=== PATIENT | female | born 1960 | race Caucasian/White ===

== ENCOUNTER 2022-01-05 09:17 | Outpatient (REF) | payer OTHER, SELFPAY ==
[2022-01-05 10:48] LABS: MANUAL DIFF FLAG NO
[2022-01-05 10:52] LABS: Basophils Absolute Auto 0.1 X10*3/uL (0.0-0.2); Basophils Percent Auto 1.2 % (0-2); Eosinophils Absolute Auto 0.2 X10*3/uL (0.0-0.4); Eosinophils Percent Auto 2.1 % (0-4); Hematocrit 38.3 % (37.0-47.0); Hemoglobin 12.5 g/dl (12.0-16.0); Imm Gran Abs Auto 0.03 X10*3/uL (0.00-0.03); Imm Gran Pct Auto 0.4 % (0.0-0.4); Lymphocytes Absolute Auto 1.8 X10*3/uL (1.2-4.9); Lymphocytes Percent Auto 22.6 % (20-40); Mean Corpuscular HGB Conc 32.6 g/dl (31.0-35.0); Mean Corpuscular Hemoglobin 32.6 pg (27.0-33.0); Mean Platelet Volume 8.8 fL (9.4-12.3); Monocytes Absolute Auto 0.9 X10*3/uL (0.1-1.2); Monocytes Percent Auto 10.6 % (2-11); Neutrophils Absolute Auto 5.1 x10*3/uL (2.0-8.3); Neutrophils Percent Auto 63.1 % (45-73); Platelet Count 347 X10*3/uL (160-400); Red Blood Count 3.83 X10*6/uL (4.20-5.50)
[2022-01-05 11:21] LABS: C Reactive Protein 0.03 mg/dL (< or = 0.50)
[2022-01-05 12:07] LABS: Erythrocyte Sedimentation Rate 16 MM/HR (0-20)
[2022-01-07 22:36] LABS: TS Negative Control Passed; TS Panel A 0; TS Panel B 0; TS Positive Control Passed; TSpotTB Negative (Negative)
== END 2022-01-05 09:18 | disposition home or self-care (01) ==
LOC: HO.10HDL 09:17
PROVIDERS: Visit Provider Internal Medicine Rheumatology
DX: M05.9 Rheumatoid arthritis with rheumatoid factor, unspecified (principal); R76.11 Nonspecific reaction to tuberculin skin test without active tuberculosis; Z79.899 Other long term (current) drug therapy
CPT/HCPCS: 36415; 85025; 85652; 86140; 86481

== ENCOUNTER 2023-07-23 12:24 | Outpatient (AMB) | payer OTHER, SELFPAY ==
--- NOTE | 2023-07-23 12:33 | MHC.OFFVIS ---
Intake Vital Signs 07/23/23 12:34 Height 5 ft Weight 114 lb 10.246 oz BMI 22.4 BP 112/70 Blood Pressure Location Rt brachial Position Sitting Pulse 68 Pulse Source Pulse Oximeter Pulse Oximetry (%) 92 Oxygen Delivery Method Room Air Intake Visit Reasons: RA Intake Note: Last seen December [address] Phillips, presents today for follow up. States ins wants to change her Humira to something else and she can't go without it. Reports she had tried to switch to something else in the past and went through hell Getting Humira from [facility] specialty pharmacy. 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 Accompanied by: Self / Same As Patient Allergies acetaminophen [Percocet] Allergy (Unknown, Verified 07/23/23 12:36) Vomiting codeine [CODEINE] Allergy (Unknown, Unverified 07/23/23 12:36) VOMITING oxycodone [Percocet] Allergy (Unknown, Verified 07/23/23 12:36) Vomiting Medication List - Last Reconciled 07/23/23 by Demi Jimenez MD adalimumab (Humira(CF) Pen) 40 mg (0.4 mL) subcut Q2W aspirin (Adult Low Dose Aspirin) 81 mg PO DAILY atorvastatin 80 mg PO DAILY diclofenac sodium 1% (Arthritis Pain (diclofenac)) 2 grams topical QID lisinopril 10 mg PO DAILY metoprolol succinate ER 50 mg PO DAILY HPI HPI Comments History of Present Illness Details 63-year-old female with seropositive RA returns for follow-up. She was last seen by Dr. Phillips 12/2021. This is her 1st visit with me. Patient states that she has difficulty making follow-up appointments due to her tough schedule working in [place] [facility]. She remains on Humira every other week and is frustrated that her insurance will no longer cover Humira. She states that she is doing quite well overall with her joint pain. Recently she had an infection of her left middle finger. She states that her hands are very dry and has to wear gloves while at work, she gets very itchy and dry. Her skin on the dorsal aspect of her left middle finger split. She has been using antibiotic cream. She has not had any systemic infections. Has been doing quite well overall Most recent history by Dr. Phillips 12/2021: Patient presents for evaluation of her rheumatoid arthritis. I had last seen her about a year ago at [place]. She was doing well on Humira 40 mg every 2 weeks. She had minimal discomfort. She did run out of the Humira prescription in October. Since then she has had 3 episodes of pain and swelling in the right wrist. She does take occasional [id number] naproxen with some benefit. Apparently the Humira has been recently renewed and approved; she should be getting it next week. She reports no side effects with its use. She does have history of having COVID she believes around the of the year but that was a self-limited infection. [facility] Surgical History S/P drug eluting coronary stent placement Family History Maternal Aunt Breast cancer, Onset Age: 76 Maternal Grandmother Breast cancer, Onset Age: 55 Mother Coronary artery disease Arthritis Father Coronary artery disease Salivary gland cancer Sister Hypertension Maternal Aunt Lung cancer Maternal Grandmother Cancer Other Uterine cancer Social History Household Members Other:: lives alone [facility] Are you a primary cardiac care unit nurse to a significant other at home: No Do you presently have visiting nurse or other home services: No 75 years or older and lives alone: No Alcohol intake: current Alcohol intake frequency: holidays/special occasions only Alcohol type: wine Patient Tobacco Use Status: Former Tobacco user Quit Date: 10/16/2020 e-Cigarette/Vaping Use: Never Used service: No Current occupational status: employed Review of Systems Musc Denies arthralgias, Denies joint swelling and Denies stiffness Skin/Breast Reports dry skin and Reports wounds Physical Exam Vital Signs: Last Vital Signs Pulse 68 07/23/23 12:34 BP 112/70 07/23/23 12:34 Pulse Ox 92 07/23/23 12:34 Oxygen Delivery Method Room Air 07/23/23 12:34 BMI result Body Mass Index 22.4 Const General: cooperative, healthy appearing and comfortable Nutritional Appearance: average body habitus Orientation/consciousness: patient oriented x3 Limitations: no limitations HEENT Head: Yes normocephalic and Yes atraumatic Mouth: moist mucous membranes Resp Effort & Inspection: normal respiratory effort and able to speak in complete sentences Auscultation: clear to auscultation bilaterally Cardio Rate: regular rate Rhythm: regular rhythm Skin Other: Dry skin on extensor answered of both hands Neuro General: patient oriented x3 Extrem Other: No active synovitis Assessment & Plan Assessment & Plan (1) Seropositive rheumatoid arthritis: Comment: ++RF+++CCP Onset ~2013 - palindromic pattern 10/08-12/08 - sulfasalazine tried - GI intolerance Jun 2018: methotrexate started. Stopped due to ineffectiveness, 2019 Humira started 10/2020 - good response - ran out in October 2021 - flared 12/2021 Humira restarted effective Code(s): M05.9 - Rheumatoid arthritis with rheumatoid factor, unspecified Plan: This is a 63-year-old female with seropositive RA who returns for follow-up. Doing quite well overall on Humira 40 mg every other week. Patient's insurance will no longer cover Humira, it will cover a bio similar. Patient quite frustrated. Discussed bio similars and reassured patient. Will prescribe a bio similar. Check labs today to evaluate disease activity (2) Long-term use of immunosuppressant medication: Code(s): Z79.899 - Other long-term (current) drug therapy Plan: Discussed the need for safety labs including T spot test to evaluate for latent TB especially that patient works in [place] [facility] Plan I spent 30 minutes reviewing patient's chart, evaluating patient, ordering diagnostic workup, counseling patient and documenting in the chart Orders: Orders Erythrocyte Sedimentation Rate Today M05.9 - Rheumatoid arthritis with rheumatoid factor, unspecified Hepatitis A,B,C Profile Today Z11.59 - Encounter for screening for other viral diseases T Spot TB Today Z11.7 - Encounter for testing for latent tuberculosis infection Complete Blood Count Auto Diff Today M05.9 - Rheumatoid arthritis with rheumatoid factor, unspecified Comprehensive Met. Panel Today M05.9 - Rheumatoid arthritis with rheumatoid factor, unspecified C Reactive Protein Today M05.9 - Rheumatoid arthritis with rheumatoid factor, unspecified Coding Level of Care Code Est Pt Level 4 (66254) Diagnoses Seropositive rheumatoid arthritis M05.9 Long-term use of immunosuppressant medication Z79.899
[2023-07-23 12:34] VITALS: BP 112/70; PULSE 68; O2SAT 92; BMI 22.4
== END 2023-07-23 13:09 | disposition home or self-care (01) ==
PROVIDERS: PCP Internal Medicine; Visit Provider Student in an Organized Health Care Education/Training Program
DX: M05.79 Rheumatoid arthritis with rheumatoid factor of multiple sites without organ or systems involvement (principal); Z79.899 Other long term (current) drug therapy
CPT/HCPCS: 99214

== ENCOUNTER → 2023-07-23 12:24 | Outpatient (BNVA) | payer OTHER, SELFPAY | PROVIDERS: PCP Internal Medicine; Visit Provider Student in an Organized Health Care Education/Training Program ==

== ENCOUNTER 2023-11-10 09:40 | Outpatient (REF) | payer OTHER, SELFPAY ==
[2023-11-10 11:37] LABS: MANUAL DIFF FLAG NO
[2023-11-10 11:43] LABS: Basophils Absolute Auto 0.1 X10*3/uL (0.0-0.2); Basophils Percent Auto 1.5 % (0-2); Eosinophils Absolute Auto 0.3 X10*3/uL (0.0-0.4); Eosinophils Percent Auto 4.2 % (0-4); Hematocrit 36.1 % (37.0-47.0); Imm Gran Abs Auto 0.02 X10*3/uL (0.00-0.03); Imm Gran Pct Auto 0.3 % (0.0-0.4); Lymphocytes Absolute Auto 2.5 X10*3/uL (1.2-4.9); Lymphocytes Percent Auto 34.8 % (20-40); Mean Corpuscular HGB Conc 33.2 g/dl (31.0-35.0); Mean Corpuscular Hemoglobin 33.8 pg (27.0-33.0); Mean Corpuscular Volume 101.7 fL (80.0-98.0); Mean Platelet Volume 8.9 fL (9.4-12.3); Monocytes Percent Auto 13.8 % (2-11); Neutrophils Absolute Auto 3.3 x10*3/uL (2.0-8.3); Neutrophils Percent Auto 45.4 % (45-73); Platelet Count 316 X10*3/uL (160-400); Red Blood Count 3.55 X10*6/uL (4.20-5.50); Red Cell Distribution Width 14.8 % (11.0-16.0); White Blood Count 7.2 X10*3/uL (4.8-10.8)
[2023-11-10 12:14] LABS: Alanine Aminotransferase 18 U/L (0-31); Alkaline Phosphatase 107 U/L (39-117); Anion Gap 10 (12-20); Aspartate Amino Transferase 22 U/L (5-31); Bilirubin Total 0.5 mg/dL (0.0-1.0); Blood Urea Nitrogen 26 mg/dL (9-16); C Reactive Protein < 0.04 mg/dL (< or = 0.50); Calcium 9.1 mg/dL (8.4-10.2); Carbon Dioxide 25 mmol/L (22-29); Chloride 109 mmol/L (96-108); Estimated Glomerular Filt Rate 54; Glucose Random 86 mg/dL (60-115); Potassium 4.5 mmol/L (3.3-5.1); Sodium 139 mmol/L (135-145); Total Protein 7.3 g/dL (6.5-8.0)
[2023-11-10 12:22] LABS: HBS Num1 29.45 mIU/mL (0-7.99); HBsAGNum1 0.23 S/CO (0.00-0.99); Hepatitis A Antibody IgM 0.19 Index (0-0.79); Hepatitis B Core Antibody Nonreactive (Nonreactive); Hepatitis B Surface Antigen Negative (Negative); ~Hepatitis A Antibody IgM Nonreactive (Nonreactive); ~Hepatitis B Surface Antibody REACTIVE (Nonreactive); ~Hepatitis C Antibody Nonreactive (Nonreactive)
[2023-11-10 12:23] LABS: Erythrocyte Sedimentation Rate 11 MM/HR (0-20)
[2023-11-15 21:53] LABS: TS Negative Control Passed; TS Panel A 0; TS Panel B 0; TS Positive Control Passed; TSpotTB Negative (Negative)
== END 2023-11-10 09:41 | disposition home or self-care (01) ==
LOC: HO.10HDL 09:40
PROVIDERS: Visit Provider Student in an Organized Health Care Education/Training Program
DX: M05.9 Rheumatoid arthritis with rheumatoid factor, unspecified (principal); Z11.7 Encounter for testing for latent tuberculosis infection; Z11.59 Encounter for screening for other viral diseases
CPT/HCPCS: 36415; 80053; 85025; 85652; 86140; 86481; 86704; 86706; 86709; 86803; 87340

== ENCOUNTER 2024-01-18 05:52 | Emergency (ER) | payer OTHER, SELFPAY ==
--- NOTE | ~2024-01-18 | XR_ITS ---
Examination: X-rays ankle and foot INDICATION: Pain. COMPARISON: None. TECHNIQUE: 3 views of the left foot and 2 views of the left ankle FINDINGS: No fracture or dislocation. The ankle mortise is intact. There is no joint effusion at the ankle. There is normal alignment without evidence of erosive change. The soft tissues are unremarkable. There is a tiny plantar calcaneal spur. XR/XR foot LT 2V IMPRESSION: 1. No fracture or dislocation. 2. Tiny plantar calcaneal spur. Electronically signed by: Gil Shore MD 01/18/2024 06:37 AM EDT
--- NOTE | ~2024-01-18 | XR_ITS ---
Examination: X-rays ankle and foot INDICATION: Pain. COMPARISON: None. TECHNIQUE: 3 views of the left foot and 2 views of the left ankle FINDINGS: No fracture or dislocation. The ankle mortise is intact. There is no joint effusion at the ankle. There is normal alignment without evidence of erosive change. The soft tissues are unremarkable. There is a tiny plantar calcaneal spur. XR/XR ankle LT 2V IMPRESSION: 1. No fracture or dislocation. 2. Tiny plantar calcaneal spur. Electronically signed by: Gil Shore MD 01/18/2024 06:37 AM EDT
[2024-01-18 06:07] VITALS: BP 148/63; PULSE 66; RESP 18; TEMP 36.9; BMI 20.9
--- NOTE | 2024-01-18 06:10 | PC.NURSE ---
pt hands cold unable to obtain o2 sat no sob noted.
--- NOTE | 2024-01-18 07:02 | ED.EXTPRO ---
HPI - Extremity Problem General Chief complaint: Extremity Problem Stated complaint: ankle pain Time Seen by Provider: 01/18/24 07:01 Source: patient Mode of arrival: ambulatory Limitations: no limitations History of Present Illness ED Provider: Dr. Dennis Poe HPI Narrative: 63-year-old female history of osteoarthritis, rheumatoid arthritis treated withHyrimoz, NSTEMI, TMJ who presents emergency department for evaluation of left ankle and left foot pain which came on suddenly last night and got progressively worse. She states that her foot and ankle are warm, red and swollen. She states the pain is severe in his 03/02 and worse with ambulation. She denied fever, chills, nausea or vomiting. She denies recent injury to her left lower extremity. Related Data Home Medications ?Medication ?Instructions ?Recorded ?Confirmed atorvastatin 80 mg tablet 80 mg PO DAILY 01/15/21 01/05/22 lisinopril 10 mg tablet 10 mg PO DAILY 01/15/21 01/05/22 metoprolol succinate 50 mg 50 mg PO DAILY 01/15/21 01/05/22 tablet,extended release 24 hr aspirin 81 mg tablet,delayed 81 mg PO DAILY 01/05/22 01/05/22 release (Adult Low Dose Aspirin) diclofenac sodium 1 % topical gel 2 g topical QID 05/28/22 05/28/22 (Arthritis Pain (diclofenac)) Previous Rx's ?Medication ?Instructions ?Recorded Hyrimoz(CF) Pen 40 mg/0.4 mL 40 mg (0.4 mL) subcut Q2W #0.8 mL 11/16/23 subcutaneous pen injector (adalimumab-adaz) cephalexin 500 mg capsule 500 mg PO QID 5 days #20 caps 01/18/24 colchicine 0.6 mg tablet (Colcrys) 0.6 mg PO ONCE #3 tabs 01/18/24 morphine 15 mg immediate release 15 mg PO Q6H PRN pain #10 tabs 01/18/24 tablet Allergies Allergy/AdvReac Type Severity Reaction Status Date / Time acetaminophen [Percocet] Allergy Unknown Vomiting Verified 01/18/24 06:08 codeine [CODEINE] Allergy Unknown VOMITING Unverified 01/18/24 06:08 oxycodone [Percocet] Allergy Unknown Vomiting Verified 01/18/24 06:08 Review of Systems Review of Systems: Yes all other systems are reviewed and are negative PMFSH Past Medical History [facility] Narrative: Social history: She does smoke cigarettes. She states she does drink alcohol and she last drank 3 glasses of wine 4 days prior. She denies drug use. Surgical History S/P drug eluting coronary stent placement Family History Family History Maternal Aunt Breast cancer, Onset Age: 76 Maternal Grandmother Breast cancer, Onset Age: 55 Mother Coronary artery disease Arthritis Father Coronary artery disease Salivary gland cancer Sister Hypertension Maternal Aunt Lung cancer Maternal Grandmother Cancer Other Uterine cancer Social History Social History Household Members Other:: lives alone [facility] Are you a primary critical care cns to a significant other at home: No Do you presently have visiting nurse or other home services: No Alcohol intake: current Alcohol intake frequency: holidays/special occasions only Alcohol type: wine Patient Tobacco Use Status: Former Tobacco user e-Cigarette/Vaping Use: Never Used Advance Directives: Yes Advance Directives Information Provided: Yes Advance Directives on File: No Do you have a plan to hurt others: No Plan service: No Current occupational status: employed Physical Exam Vital Signs: Vital Signs: Last Vital Signs Temp 97.5 F 01/18/24 07:53 Pulse 66 01/18/24 07:53 Resp 14 01/18/24 07:53 BP 141/44 H 01/18/24 07:53 Pulse Ox 100 01/18/24 07:53 O2 Del Method Room Air 01/18/24 07:53 BMI result Body Mass Index 20.9 Vital signs revealed an elevated blood pressure of 141/44 otherwise unremarkable Exam: General: Awake, alert in no distress Extremities: Patient has left lower extremity revealed increased warmth with erythema over the MTP joints with severe tenderness palpation over the 1st MTP joint. The erythema does extend proximally along the 1st through 3rd metatarsals, patient also has tenderness palpation ankle with no significant joint effusion. The patient has pain with minimal movement of her empty brain joints and ankle. Psych: Pleasant, cooperative Medications Administered Discontinued Medications Generic Name Dose Route Start Last Admin Trade Name Freq PRN Reason Stop Dose Admin Acetaminophen 975 mg 01/18/24 07:27 08/27/24 07:36 Acetaminophen 325 Mg Tablet PO 01/18/24 07:28 975 mg ONCE STA Administration Cephalexin HCl 500 mg 01/18/24 07:28 01/18/24 07:37 Cephalexin 500 Mg Capsule PO 01/18/24 07:29 500 mg ONCE ONE Administration Prednisone 40 mg 01/18/24 07:27 01/18/24 07:36 Prednisone 20 Mg Tablet PO 01/18/24 07:28 40 mg ONCE ONE Administration Medical Decision Making Medical Decision Making [facility] Narrative: 63-year-old female history of osteoarthritis, rheumatoid arthritis treated with Hyrimoz, NSTEMI, TMJ who presents emergency department for evaluation of left ankle and left foot pain which came on suddenly last night and got progressively worse, pain is 10/10 and is worse with movement. This is her 1st episode of this type of pain. She denies any injury. Vital signs revealed an elevated blood pressure. Physical examination revealed erythema in severe tenderness palpation over the MTP joints specifically over the 1st joint as well as erythema that extends along the 1st through 3rd metatarsals. Patient also has tenderness palpation in movement of her left ankle with no obvious joint effusion. Differential diagnosis: ?Includes but is not limited to cellulitis, inflammatory arthritis, septic arthritis, gout/podagra Following evaluation was ordered: X-rays of the left ankle and left foot Patient was initially treated with the following: Prednisone 40 mg orally, cephalexin 500 mg orally and acetaminophen 975 mg orally Course: The patient's x-rays revealed no acute fractures or other significant abnormalities. Patient's physical findings and presentation is consistent with gout involving the MTP joints foot and ankle. This is the patient's 1st episode of gout. The patient was prescribed Colcrys 0.6 mg tablets, 2 pills orally followed by 1 pill 1 hour later to repeat in 3 days. She was also prescribed prednisone 40 mg once a day for 5 days. I think that is cellulitis is less likely however given her rheumatoid arthritis and her treatment with a biologic agent I will treat her empirically for possible cellulitis with cephalexin 500 mg 4 times a day for 7 days. She was advised to take the Colcrys, prednisone and Tylenol and for pain not relieved by these medications she was prescribed morphine 15 mg every 6 hours as needed for pain. She was given printed and verbal instructions and discharged home. I did tell her that she will need to follow-up with her PCP and when her symptoms have resolved in 2-4 weeks she should have an outpatient laboratory evaluation to include at least uric acid and calcium. Admission/Observation Consideration of admission/observation: Escalation of care including admission/observation considered Independent Interpretation I performed an independent interpretation of an: Plain X-Ray Interpretation: My interpretation of the patient's ankle x-rays and foot x-ray is as follows: No acute disease Radiology Impression Discussion of test interpretation with radiology: I have reviewed the radiologist's reading. Radiologist Impression: XR foot LT 2V IMPRESSION: 1. No fracture or dislocation. 2. Tiny plantar calcaneal spur. Dictated By: Gil Shore MD XR ankle LT 2V IMPRESSION: 1. No fracture or dislocation. 2. Tiny plantar calcaneal spur. Dictated By: Gil Shore MD Prescription Management I considered prescription management with: Pain Medication and Antibiotic Chronic Conditions Patient?s care impacted by: Other (Rheumatoid arthritis) Discharge Plan Discharge Clinical Impression: Gout, Podagra Patient Disposition: Home, Self-Care Instructions: Gout (ED) Additional Instructions: Your x-ray of your left foot and ankle did not reveal any significant abnormalities. Your physical exam revealed swelling and inflammation along the joints between your toes and your foot (metatarsophalangeal joints-MTP). You had the most tenderness over the great toe MTP joint and this is a common area to get a gout attack and that is called podagra which is the medical term for gout of this joint. Since you are on Hyrimoz your risk for infection, therefore I am starting you prophylactically on Keflex 500 mg pills, take 1 pill 4 times a day for 5 days. Take prednisone 20 mg pills, 2 pills once a day for 5 days. While you ?are taking prednisone, do not take any NSAIDs (Motrin, Advil, ibuprofen, Aleve, naproxen). Take Tylenol (acetaminophen) 2 pills every 6 hours as needed for pain. For pain not relieved by prednisone or Tylenol take morphine 15 mg pills, 1 pill every 6 hours as needed for pain. This medication will make you sleepy, do not drive or work while taking this medication. Morphine is a narcotic medication and can be addicting. If you are concerned about addiction you can ask the pharmacist for less pills or do not get this prescription filled. I am prescribing a Gout specific medication called Colcrys (colchicine) 0.1 mg pills. Take 2 pills then 1 hour later take 1 pill. Repeat this dose in 3 days if you are still having symptoms. Please return to the emergency department if your symptoms get worse or if you develop any symptoms that are concerning to you. You will need to follow-up with your doctor in 2-4 weeks to get outpatient blood work to include uric acid and calcium levels. Prescriptions: New cephalexin 500 mg capsule 500 mg PO QID 5 Days Qty: 20 0RF colchicine [Colcrys] 0.6 mg tablet 0.6 mg PO ONCE Qty: 3 0RF Rx Instructions: 1.2 mg orally, then 1 hour later take 0.6 mg orally morphine 15 mg tablet 15 mg PO Q6H PRN (Reason: pain) Qty: 10 0RF Rx Instructions: The patient may ask for partial fill; Partial Fill upon patient request. No Action adalimumab-adaz [Hyrimoz(CF) Pen] 40 mg/0.4 mL pen injector 40 mg subcut Q2W Qty: 0.8 2RF atorvastatin 80 mg tablet 80 mg PO DAILY metoprolol succinate 50 mg tablet extended release 24 hr 50 mg PO DAILY lisinopril 10 mg tablet 10 mg PO DAILY aspirin [Adult Low Dose Aspirin] 81 mg tablet,delayed release (DR/EC) 81 mg PO DAILY diclofenac sodium [Arthritis Pain (diclofenac)] 1 % gel 2 g topical QID Rx Instructions: apply to single elbow, wrist or hand; for hand includes palm/fingers/back of hand Stand Alone Forms: Work/School Release Interventions: ED Discharge Assessment Last Done: 01/18/24 07:53 Discharge Date/Time: 01/18/24 07:54 Print Language: Croatian
[2024-01-18] MEDS: predniSONE 20 MG TABLET 40 MG PO (07:36)
[2024-01-18] MEDS: Acetaminophen 325 MG TABLET 975 MG PO (07:36)
[2024-01-18] MEDS: cephALEXin 500 MG CAPSULE PO (07:37)
[2024-01-18 07:53] VITALS: BP 141/44; PULSE 66; RESP 14; TEMP 36.4; O2SAT 100
== END 2024-01-18 07:54 | disposition home or self-care (01) ==
PROVIDERS: Emergency Provider Emergency Medicine Emergency Medical Services
DX: M10.072 Idiopathic gout, left ankle and foot (principal); M25.572 Pain in left ankle and joints of left foot
CPT/HCPCS: 73600; 73620; 99283

== ENCOUNTER 2024-05-02 14:39 | Outpatient (AMB) | payer OTHER, SELFPAY ==
--- NOTE | 2024-05-02 14:47 | MHC.OFFVIS ---
Vital Signs 05/02/24 14:49 Height 5 ft Weight 112 lb 10.499 oz BMI 22.0 BP 100/54 L Blood Pressure Location Rt brachial Position Sitting Pulse 63 Pulse Source Pulse Oximeter Pulse Oximetry (%) 99 Oxygen Delivery Method Room Air Intake Visit Reasons: RA/lm Intake Note: Patient presents for RA. Allergies acetaminophen [Percocet] Allergy (Unknown, Verified 05/02/24 14:51) Vomiting codeine [CODEINE] Allergy (Unknown, Verified 05/02/24 14:51) VOMITING oxycodone [Percocet] Allergy (Unknown, Verified 05/02/24 14:51) Vomiting Medication List - Last Reconciled 05/02/24 by Demi Jimenez MD allopurinol 100 mg PO DAILY aspirin (Adult Low Dose Aspirin) 81 mg PO DAILY atorvastatin 80 mg PO DAILY diclofenac sodium 1% (Arthritis Pain (diclofenac)) 2 grams topical QID Hyrimoz(CF) Pen (adalimumab-adaz) 40 mg (0.4 mL) subcut Q2W NS lisinopril 10 mg PO DAILY metoprolol succinate ER 50 mg PO DAILY morphine 15 mg PO Q6H PRN HPI Comments Details: 64-year-old female with seropositive RA returns for follow-up. She states that she is doing well overall. She remains on adalimumab injection every other week. Back in December she presented to the hospital with right ankle and foot swelling and severe pain. She was diagnosed with gout and treated with colchicine and prednisone. She had a similar attack involving her right ankle 2 months later. At that time she was evaluated by her installation coordinator and started on a daily pill, she thinks it is allopurinol and she also has prednisone to use as needed for flare-ups. Has not had any gout attacks since. She denies history of kidneys. Her mother and brother both have gout. She is doing well otherwise [facility] Surgical History S/P drug eluting coronary stent placement Family History Maternal Aunt Breast cancer, Onset Age: 76 Maternal Grandmother Breast cancer, Onset Age: 55 Mother Coronary artery disease Arthritis Gout Father Coronary artery disease Salivary gland cancer Sister Hypertension Maternal Aunt Lung cancer Maternal Grandmother Cancer Brother Gout Other Uterine cancer Social History Household Members Other:: lives alone Housing: Condominium Are you a primary senior resident care director to a significant other at home: No Do you presently have visiting nurse or other home services: No 75 years or older and lives alone: No Alcohol intake: current Alcohol intake frequency: holidays/special occasions only Alcohol type: wine Patient Tobacco Use Status: Former Tobacco user e-Cigarette/Vaping Use: Never Used service: No Current occupational status: employed Review of Systems Musc Denies arthralgias, Denies joint swelling and Denies stiffness Skin/Breast Reports dry skin Physical Exam Vital Signs: Last Vital Signs Pulse 63 05/02/24 14:49 BP 100/54 L 05/02/24 14:49 Pulse Ox 99 05/02/24 14:49 Oxygen Delivery Method Room Air 05/02/24 14:49 BMI result Body Mass Index 22.0 Const General: cooperative, healthy appearing and comfortable Nutritional Appearance: average body habitus Orientation/consciousness: patient oriented x3 Limitations: no limitations HEENT Head: Yes normocephalic and Yes atraumatic Mouth: moist mucous membranes Resp Effort & Inspection: normal respiratory effort and able to speak in complete sentences Auscultation: clear to auscultation bilaterally Cardio Rate: regular rate Rhythm: regular rhythm Skin General skin exam: dry skin Neuro General: patient oriented x3 Extrem Other: No active synovitis Assessment & Plan Assessment & Plan (1) Seropositive rheumatoid arthritis: Comment: ++RF+++CCP Onset ~2013 - palindromic pattern 10/08-12/08 - sulfasalazine tried - GI intolerance Jun 2018: methotrexate started. Stopped due to ineffectiveness, 2019 Humira started 10/2020 - good response - ran out in October 2021 - flared 12/2021 Humira restarted effective, switch to bio similar 07/2023 effective Code(s): M05.9 - Rheumatoid arthritis with rheumatoid factor, unspecified Category: Medical Plan: This is a 64-year-old female with seropositive RA who returns for follow-up. Doing quite well overall on Hyrimoz 40 mg every other week. Continue Hyrimoz 40 mg every other week Labs before next visit in 6 months (2) Long-term use of immunosuppressant medication: Code(s): Z79.899 - Other long distance billing operator (current) drug therapy Category: Medical Plan: Side effects of adalimumab were discussed with the patient in detail including increased risk of infection, demyelinating disease, reactivation of latent TB, possible increased risk of solid and skin tumors. Patient fully aware. Advised patient to seek medical care [facility] if patient has an infection and advised patient to stop the medication until the infection is resolved. (3) Gout: Code(s): M10.9 - Gout, unspecified Category: Medical Qualifiers: Chronicity: acute Gout etiology: unspecified cause Gout site: foot Laterality: left Qualified Code(s): M10.9 - Gout, unspecified Plan: Patient describes a couple of flare-ups that are highly suspicious for gout. She was started on allopurinol by a installation coordinator. Will check uric acid level before next visit Plan I spent 25 minutes reviewing patient's chart, evaluating patient, ordering diagnostic workup, counseling patient and documenting in the chart Orders: Orders Comprehensive Met. Panel 6 Months M05.9 - Rheumatoid arthritis with rheumatoid factor, unspecified C Reactive Protein 6 Months M05.9 - Rheumatoid arthritis with rheumatoid factor, unspecified Erythrocyte Sedimentation Rate 6 Months M05.9 - Rheumatoid arthritis with rheumatoid factor, unspecified Complete Blood Count Auto Diff 6 Months M05.9 - Rheumatoid arthritis with rheumatoid factor, unspecified Uric Acid 6 Months M10.9 - Gout, unspecified Medications: Discontinued cephalexin Discontinued Reason: Doctor's Order 500 mg PO QID 20 caps 0RF 5 days colchicine (Colcrys) 1.2 mg orally, then 1 hour later take 0.6 mg orally Discontinued Reason: Doctor's Order 0.6 mg PO ONCE 3 tabs 0RF Coding Level of Care Code Est Pt Level 4 (18858) Complex EM visit Add On G2211 Diagnoses Seropositive rheumatoid arthritis M05.9 Long-term use of immunosuppressant medication Z79.899 Gout M10.9 Chronicity: acute Gout etiology: unspecified cause Gout site: foot Laterality: left
[2024-05-02 14:49] VITALS: BP 100/54; PULSE 63; O2SAT 99; BMI 22.0
== END 2024-05-02 15:09 | disposition home or self-care (01) ==
PROVIDERS: Visit Provider Student in an Organized Health Care Education/Training Program
DX: M05.79 Rheumatoid arthritis with rheumatoid factor of multiple sites without organ or systems involvement (principal); Z79.899 Other long term (current) drug therapy; M10.9 Gout, unspecified
CPT/HCPCS: 99214

== ENCOUNTER 2024-07-18 13:43 | Outpatient (REF) | payer OTHER, SELFPAY ==
--- NOTE | ~2024-07-18 | XR_ITS ---
EXAMINATION: XR HIP, LEFT CLINICAL INFORMATION: S70.02XA - Contusion of left hip, initial encounter COMPARISON: None available. TECHNIQUE: Two views of the left hip. FINDINGS: No acute cortical disruption or malalignment. No lytic or blastic lesions. There is preservation of the joint space. XR/XR hip LT min 2V IMPRESSION: Normal left hip. Electronically signed by: Willian Duffy MD 07/18/2024 03:26 PM ALYL
--- OUTSIDE RECORDS SUMMARY | 2024-07-18 18:46 | XMS_ITS | Encounter Summary ---
Author Organization [facility] Address [address] [facility] [address] [place] [address] Phone Care Team Providers Care Cad Draftsman Name Role Phone Krys Owens MD Primary Care Provider [phone] Encounter Details Date Type Department Care Team (Late st Contact Info) Description 12/29/2023 Documentation Only [facility] [address] [place] [address] Raquel Alvarado [address] [place] [phone] Social History Tobacco Use Types Packs/Day [...] Visit [facility] [address] [place] [address] Wilbur Gamez MD [address] [place] [address] [place] [address] documented as of this encounter Visit Diagnoses Not on filedocumented in this encounter Care Teams Cad Draftsman Relationship Specialty Start Date End Date Krys Owens MD [address] [place] [address] PCP - General Internal Medicine 04/06/24 documented as of this encounter
--- OUTSIDE RECORDS SUMMARY | 2024-07-18 18:46 | XMS_ITS | Clinical Summary ---
Author Organization [facility] Address [address] [place] [address] Phone Care Team Providers Care Jewelry Estimator Name Role Phone Krys Owens MD Primary Care Provider Allergies Active Allergy Reactions Criticality Noted Date [...] Care Team Description 05/02/2024 Telephone Gastroenterology - [place] [address] [employer] [address] [place] [address] Reina Muñiz NP provider call [...] COMMENT: LT. BREAST BX-BENIGN BREAST SURGERY PROCEDURE: [place] UNLISTED PROCEDURE BREAST; COMMENT: REMOVED CYST LT. [...] 2 aunt Uterine cancer Other 1 M. [id number] ?cousin Breast cancer Other 2 M. [id number] Hypertension Sister Colon cancer Neg Hx Ovarian cancer Neg Hx Relation Name Status Comments Aunt M. AUNT.40S Alive Father Maternal Grandmother 50S Mother Mother's side 1 Mother's side 2 Other 1 M. [id number] Other 2 M. [id number] Other 3 M. [id number] Alive Sister Social History Tobacco Use Types [...] this topic Medical Devices Implanted Type Area First Grade Teacher Device Identifier Shelf Expiration Date Model / Serial / Lot Stents Stents N/A: Heart Procedures Procedure Name Priority Date/Time Associated Diagnosis Comments COLONOSCOPY Routine 04/14/2024 3:48 PM EST Weight loss ANNUAL BMP BLOOD TEST Routine 11/30/2023 HEPATITIS C SCREENING Routine 08/07/2020 LIPID PANEL Routine 07/19/2020 from Last 3 Months or Most Recently Relevant to Health Maintenance Results * COLONOSCOPY Anesthesia - MAC; [facility] ENDOSCOPY (04/14/2024 3:48 PM EST) Anatomical Region [...] term therapeutic plan. Narrative 04/14/2024 3:51 PM [facility] GI Patient Name: Ilan Ruth Procedure Date: 04/14/2024 3:13 PM Date of : 1960 Age: 64 Gender: Female Note Status: Finalized Attending MD: Gm Woods DO, [id number] Procedure Date No Time: 04/14/2024 Procedure: ? [...] physician, the nurse, the ? anesthesiologist, the manager business systems and the radiology technician ? in the pre-procedure area in [...] Procedure Code(s): ? --- Professional --- ? 65041, Colonoscopy, flexible; with removal of ? tumor(s), polyp(s), or other lesion(s) by snare ? technique ? 54127, 59, Colonoscopy, flexible; with biopsy, single ? or multiple Diagnosis Code(s): ? --- Professional --- ? R63.4, Abnormal weight loss ? D12.2, Benign neoplasm of ascending colon ? K64.9, Unspecified hemorrhoids CPT copyright 2020 [employer]. All rights reserved. The codes documented in this report are preliminary and upon heading pinner review may be revised to meet current compliance requirements. GM Woods DO 04/14/2024 3:51:13 PM This report has been signed electronically.Gm Woods DO Number of Addenda: 0 Note Initiated On: 04/14/2024 3:13 PM Scope Withdrawal Time: 0 hours 7 minutes 59 seconds Scope In: 3:33:02 PM Scope Out: 3:47:22 PM ? Endoscopy Department at [facility] - [address] [place] [address], ? [place] [address] Procedure Note Gm Woods DO - 04/14/2024 [facility] GI Patient Name: Ilan Ruth Procedure Date: 04/14/2024 3:13 PM Date of : 1960 Age: 64 Gender: Female Note Status: Finalized Attending MD: Gm Woods DO, [id number] Procedure Date No Time: 04/14/2024 Procedure: Colonoscopy [...] the physician, the nurse, the anesthesiologist, the manager business systems and thetechnician in the pre-procedure area in [...] retroflexion views. Procedure Code(s): --- Professional --- 23978, Colonoscopy, flexible; with removal of tumor(s), polyp(s), or other lesion(s) by snare technique 70340, 59, Colonoscopy, flexible; with biopsy,single or multiple Diagnosis Code(s): --- Professional --- R63.4, Abnormal weight loss D12.2, Benign neoplasm of ascending colon K64.9, Unspecified hemorrhoids CPT copyright 2020 [employer]. All rights reserved. The codes documented in this report are preliminary and upon heading pinner reviewmay be revised to meet current compliance requirements. GM Woods DO 04/14/2024 3:51:13 PM This report has been signed electronically.Gm Woods DO Number of Addenda: 0 Note Initiated On: 04/14/2024 3:13 PM Scope Withdrawal Time: 0 hours 7 minutes 59 seconds Scope In: 3:33:02 PM Scope Out: 3:47:22 PM Endoscopy Department at [facility] - [address] [place] [phone] IMPRESSION: - Hemorrhoids found on perianal exam. [...] booking of today's procedure) to discuss a fdc therapeutic plan. Result [facility] Gm Woods DO GI~PROCEDURE ORDERABLES Final Re sult * Annual BMP Blood Test (11/30/2023) [facility] Annual BMP Blood Test abstracted Result [facility] Provider HEALTH MAINTENANCE Final Result * Hepatitis C Screening (08/07/2020) [facility] Hepatitis C Screening abstracted Result [facility] Provider HEALTH MAINTENANCE Final Result * Lipid panel (07/19/2020) [facility] LDL/HDL Ratio 2 0 - 4 Triglycerides 95 0 - 150 mg/dL Cholesterol 132 0 - 200 mg/dL HDL 68 >=40 mg/dL LDL Cholesterol 45 0 - 100 mg/dL Blood Venous blood specimen / Unknown Result [facility] Provider LAB BLOOD ORDERABLES Jackie l Result from Last 3 Months or Most Recently Relevant to Health Maintenance Insurance [employer] Care Teams Jewelry Estimator Relationship Specialty Start Date End Date Krys Owens MD [address] [place] [address] PCP - General Internal Medicine 11/04/20
--- OUTSIDE RECORDS SUMMARY | 2024-07-18 18:46 | XMS_ITS | Encounter Summary ---
Author Organization [facility] Address [address] [facility] [address] [place] [address] Phone Care Team Providers Care Transition Coach Name Role Phone Krys Owens MD Primary Care Provider Encounter Details Date Type Department Care Team (Late st Contact Info) Description 12/29/2023 Documentation Only [facility] [address] [place] [address] Raquel Alvarado [address] [place] [phone] Social History Tobacco Use Types Packs/Day [...] Visit [facility] [address] [place] [address] Wilbur Gamez MD [address] [place] [address] [place] [address] documented as of this encounter Visit Diagnoses Not on filedocumented in this encounter Care Teams Transition Coach Relationship Specialty Start Date End Date Krys Owens MD [address] [place] [address] PCP - General Internal Medicine 04/06/24 documented as of this encounter
--- OUTSIDE RECORDS SUMMARY | 2024-07-18 18:46 | XMS_ITS | Clinical Summary ---
Author Organization [facility] Address [address] [facility] [place] [address] Phone Care Team Providers Care Physicist Solid Earth Name Role Phone Krys Owens MD Primary [...] Communication [facility] [place], [address] [place] [address] Raquel Alvarado 05/03/2024 Documentation Only [facility] [address] [place] [address] Harley Au MA from Last [...] Visit [facility] [address] [place] [address] Wilbur Gamez MD [address] [facility] [place] [phone] Health Maintenance Due Date Last Done Comments Breast Cancer Screening 1960 Pneumococcal Vaccine: 65+ Ye ars (1 of 2 - PCV) 1964 Colorectal Cancer Screening: Annual FOBT 2007 Colorectal Cancer Screening: Sigmoidoscopy 2007 Influenza Vaccine (#1) 2024 Colorectal Cancer Screening: Colonoscopy 04/14/2034 04/14/2024 Hepatitis B Vaccine Aged Out No longe r eligible based on patient's age to complete this topic Insurance [facility] Care Teams Physicist Solid Earth Relationship Specialty Start Date End Date Krys Owens MD [address] [place] [address] PCP - General Internal Medicine 04/06/24
--- OUTSIDE RECORDS SUMMARY | 2024-07-18 18:46 | XMS_ITS | Encounter Summary ---
Author Organization [facility] Address [address] [facility] [address] [place] [address] Phone Care Team Providers Care Hat Ironer Name Role Phone Krys Owens MD Primary Care Provider [phone] Encounter Details Date Type Department Care Team (Late Contact Info) Description 12/21/2023 Documentation Only [facility] [address] [place] [address] [place] [address] [place] [address] Social History Tobacco Use Types [...] Visit [facility] [address] [place] [address] Wilbur Gamez MD [address] [place] [address] [place] [address] documented as of this encounter Visit Diagnoses Not on filedocumented in this encounter Care Teams Hat Ironer Relationship Specialty Start Date End Date Krys Owens MD [address] [place], [place] [id number] PCP - General Internal Medicine 04/06/24 documented as of this encounter
--- OUTSIDE RECORDS SUMMARY | 2024-07-18 18:46 | XMS_ITS | Data Portability ---
Author Organization [facility], [address] Address [address] [place] [address] Care Team Providers Care Round Kiln Drawer Name Role Phone [facility] Primary Care Provider Assessment No assessment recorded. Plan of Treatment Reminders Order Date Submit Date Provider Last Modified By Organization Details Last Modified Time Details Appointments None recorded. Lab rapid SARS CoV 2 Ag, QL IA, respiratory specimen 2022 023 [place] [address] [facility], [address] [place] [address], [id number], 3 11:25:19 Referral None recorded. Procedures None recorded. Surgeries None recorded. Imaging None recorded. Medication Orders fluticasone propionate 50 mcg/actuati on nasal spray,suspe nsion [address]/Pharmacy #[id number], [address] [place], [address], 3 11:27:07 Tessalon Perles 100 mg capsule 2022 023 [facility]/Pharmacy #[id number], [address] [place], [address], 3 11:25:26 prednisone 20 mg tablet 2022 023 [facility]/Pharmacy #[id number], [address] [place], [address], 3 11:25:26 cyclobenzap rine 10 mg tablet 2022 023 [email or web address] [facility]/Pharmacy #[id number], [address] [place], [address], 13:26:13 Patient TargetsNo targets recorded. Patient Instructions Encounter Date Encounter Id Patient Instructions Last Modified By Organization Details Last Modified Time 08/06/2022 [id number] Drink lots of fluids. Take medications as prescribed. Do not do any activities that exacerbate your pain. Take walks and change positions frequently. Do not lie in bed all day. Light movement is helpful for recovery of the back. Use a heating pad or warm compress on the painful area of the back. A lidocaine patch can be used for topical relief. This is available over the counter. Once pain is improved, do back exercises to stretch and strengthen the back. If you develop severe pain, fevers/chills, weakness of limbs, loss of sensation in groin, or loss of control of bowel or bladder functions call 911 or go to the Emergency Department. [email or web address] Not available 08/06/2022 13:25:53 Reason for Referral None Reported. Results Created Date Observation Date Name Description Value Unit Range Abnormal Flag Note LastModifiedBy Organization Detail LastModifiedTime 10/09/19 23 10/08/2022 rapid SARS CoV 2 Ag, QL IA, respi rator y speci men Unknown Analyte Normal =Negat manisha Not Available [address], [address], 10/08/2022 10:44:47 10/09/19 23 10/08/2022 rapid SARS CoV 2 Ag, QL IA, respi rator y speci men Unknown Analyte negati ve Not Available [address], [address], 10/08/2022 10:44:47 Result Notes None recorded. Problems Name Problem SNOMED Code Status Onset Date Resolution Date Notes Provider Name and Address Organization Details Recorded Time Heart disease 66752039 Active 2022 JAYY issa, [place] - [facility] 3 13:05:14 Hypertensive disorder 63755871 Active 2022 JAYY issa, [place] - [facility] 3 13:05:26 Hypercholestero lemia 95317128 Active 2022 JAYY issa [facility] 3 13:05:36 Problem Notes None recorded. Procedures Surgical History Date Name Laterality Status Provider Name and Address Organization Details Recorded Time placement of stent in cardiac conduit completed JAYY GALDAMEZ [facility] 08/06/2022 13:07:02 Imaging Results None recorded. Procedure Notes None recorded. Medical Equipment None Reported. Allergies Allergen ID Allergen Name Allergen Category Reaction Reaction Severity Criticality Documentation Date Start Date Code Code System Note Provider Name and Address Organization Details Recorded Time 896938 codeine medicatio n vomiting Not available Not available 08/06/2022 2670 RxNorm JAYY issa [facility] 3 13:04:52 Medications Name Sig Start Date Stop Date Status Note LastModified by Organization Details LastModified Time cyclobenzapr ine 10 mg tablet Take 1 tablet every day by oral route at bedtime for 10 days. 2022 active Not Available Not Available Not Avai lable atorvastatin 80 mg tablet Take 1 tablet every day by oral route. active Not Available Not Available No t Available lisinopril 20 mg tablet Take 1 tablet every day by oral route. active Not Available Not Available No t Available prednisone 20 mg tablet Take 2 tablets every day by oral route for 3 days. 2022 active Not Available Not Available Not Avai lable Tessalon Perles 100 mg capsule Take 1 capsule 3 times a day by oral route for 5 days. 2022 active Not Available Not Available Not Avai lable Baby Aspirin 81 mg chewable tablet Chew 1 tablet every day by oral route. active Not Available Not Available No t Available fluticasone propionate 50 mcg/actuatio n nasal spray,suspen mack SPRAY 1 SPRAY EVERY DAY BY INTRANASAL ROUTE FOR 5 DAYS. active Not Available Not Available No t Available metoprolol succinate ER 50 mg capsule sprinkle, ext. release 24 hr Take 1 capsule every day by oral route. active Not Available Not Available No t Available Vitals Date Recorded Body height Body mass index (BMI) Body weight Body temperature Oxygen saturation Oxygen saturation in Arterial blood by Pulse oximetry Heart rate Respiratory rate Systolic blood pressure Diastolic blood pressure Provider Name and Address Organization Details Last Updated DateTime 3 152.4 cm 24 kg/m2 54126.8 6 g 97 [degF] 97 % 97 % 72 /min 16 /min 144 mm[Hg] 76 mm[Hg] JAYY GALDAMEZ PA - [facility] 3 13:10:04 Date Recorded Body height Body mass index (BMI) Body weight Pain severity - 0-10 verbal numeric rating [Score] - Reported Respiratory rate Oxygen saturation Oxygen saturation in Arterial blood by Pulse oximetry Heart rate Body temperature Systolic blood pressure Diastolic blood pressure Provider Name and Address Organization Details Last Updated DateTime 3 152.4 cm 24 kg/m2 16188.8 6 g 0 18 /min 100 % 100 % 63 /min 97.9 [degF] 121 mm[Hg] 71 mm[Hg] Ruby ARGUELLES - [facility] 3 10:47:13 Social History Question Answer Notes LastModified by Organizat ion Details LastModified Time Tobacco Smoking Status Current Every Day Smoker KINDRA Rodarte [facility] 08/06/2022 13:07:50 What Is Your Level Of Alcohol Consumption? Occasional [email or web address] Information not available 08/06/2022 Do You Use Any Illicit Or Recreational Drugs? No [email or web address] Information not available 08/06/2022 Have You Recently Traveled Abroad? No Information not available 08/06/2022 Sex: Unknown Functional Status None recorded. Mental Status None recorded. Family History Relationship Description Onset Age of this Age Resolved Age Notes LastModified by Organization Details LastModified Time Father No current problems or disability [email or web address] Not available 08/06 13:06:43 Mother No current problems or disability [email or web address] Not available 08/06 13:06:43 Medical History No medical history recorded. Gynecological HistoryNo gynecological history recorded. Obstetrics History GPAL:G 0 P 0 0 0 0 Immunizations Vaccine Type Date Status Note Provider Nam e and Address Organization Details Recorded Time COVID-19, mRNA, LNP-S, PF, 100 mcg/0.5mL dose or 50 mcg/0.25mL dose 06/12/2021 completed [facility]A [facility] 10/08/2022 10:45:03 COVID-19, mRNA, LNP-S, PF, 100 mcg/0.5mL dose or 50 mcg/0.25mL dose 06/13/2020 completed KINDRA Epps - [facility] 10/08/2022 10:45:03 COVID-19, mRNA, LNP-S, PF, 100 mcg/0.5mL dose or 50 mcg/0.25mL dose 07/12/2020 completed KINDRA Epps [facility] 10/08/2022 10:45:03 COVID-19, mRNA, LNP-S, PF, 100 mcg/0.5mL dose or 50 mcg/0.25mL dose 08/09/2020 completed Ruby issa [facility] 10/08/2022 10:45:03 Past Encounters Encounter ID Performer Location Encounter Start Date Encounter Closed Date Diagnosis/Indication Diagnosis SNOMED-CT Code Diagnosis ICD10 Code Diagnosis Note [id number] [address] [place] [address] 04/12/2019 10:14:12 04/12/2019 11:24:32 [id number] [address] [facility] [place] [address] 04/14/2019 09:32:35 04/14/2019 10:11:27 [id number] [address] [place] [address] 12/07/2018 10:55:27 12/07/2018 13:04:44 [id number] [address] [place] [address] 03/28/2019 10:29:58 03/28/2019 11:33:50 [id number] [address] [place] [address] 12/31/2017 16:03:58 12/31/2017 16:53:01 [id number] [address] [place] [address] 04/19/2022 11:11:08 04/19/2022 12:33:22 [id number] Kobe Trinidad [place] [address] [address] 08/06/2022 09:24:11 08/06/2022 13:28:11 Acute low back pain 468590550 M54.50 [id number] Quentin Aaron MD [address] [place] [address] 10/08/2022 09:34:41 10/08/2022 11:26:51 Upper respiratory infection 99370986 J06.9 Please follow up with PCP or Urgent Care in 3-5 days if no improvemen t or if any new symptoms occur that are concerning .Call 911 or go to nearest ER if you develop any shortness of breath, chest pain, severe headache, dizziness, or other concerning symptoms Health Concerns Section Related Observation LastModified by Organization Detai ls LastModified Time None Recorded Concern Status LastModified by Organization Details LastModified Time None Recorded Advance Directives Directive None Recorded Payers Encounter Date Sequence Insurance Name Policy Number Policy Hill Covered Member ID Hill Member ID Guarantor Name 04/14/2019 1 [employer] (PPO) [id number] 1 Ilan A Ruth [id number] Ilan Ruth 04/19/2022 1 [employer] [id number] 1 Ilan A Ruth [id number] Ilan Ruth 08/06/2022 1 [employer] [id number] 1 Ilan A Ruth [id number] Ilan Ruth 10/08/2022 1 [employer] (PP[employer]) [id number] 1 Ilan A Ruth [id number] Ilan Ruth Notes Date Note Type Note Provider Name and Address Organization Details Recorded Time 08/06/2022 text/html Lower BackReport ed bypatient.Location: left; posterior Quality:aching; burning; constant Severity:moderate Duration:2 days Timing:acute; morning; daytime; nighttime Context:cannot identify; lifting; History of similar symptoms Alleviating Factors:rest; NSAIDs Aggravating Factors:walking; lifting; carrying; bending/squatting; pushing/pulling; going from sit to stand Associated Symptoms:no weakness; no numbness; no swelling; no redness; no warmth; no ecchymosis; no catching/locking; no buckling; no grinding; no instability; no radiation down leg; no drainage; no fever; no chills; no weight loss; no change in bowel/bladder habits;popping/clic noreen Previous Surgery:none Prior Imaging:none Previous Injections:none Previous PT:none Work Related:no Working:no Kobe Trinidad NP [address] [place], [address], [employer] 08/06/2022 13:27:04 10/08/2022 text/html CoughReported bypatient.Quality:d ry; intermittent Duration:4 days Timing:gradual Associated Symptoms:no fever; no chills; no chest pain; no heartburn; no nausea; no vomiting; no edema; no agitation; no wheezing;post nasal drip Quentin Aaron MD [address] [place], [address], [employer] 10/08/2022 11:28:22 OBGyn Episode No OBEpisode recorded.
--- OUTSIDE RECORDS SUMMARY | 2024-07-18 18:46 | XMS_ITS | Encounter Summary ---
Author Organization [facility] Address PO [facility] [address] [place] [address] Phone Care Team Providers Care Behavioral Health Worker Name Role Phone Krys Owens MD Primary Care Provider [phone] Encounter Details Date Type Department Care Team (Late st Contact Info) Description 12/29/2023 Documentation Only [facility] [address] [place] [address] Raquel Alvarado [address] [place] [phone] Social History Tobacco Use Types Packs/Day [...] Visit [facility] [address] [place] [address] Wilbur Gamez MD [address] [place] [address] [place] [address] documented as of this encounter Visit Diagnoses Not on filedocumented in this encounter Care Teams Behavioral Health Worker Relationship Specialty Start Date End Date Krys Owens MD [address] [place] [address] PCP - General Internal Medicine 04/06/24 documented as of this encounter
--- OUTSIDE RECORDS SUMMARY | 2024-07-18 18:46 | XMS_ITS | Encounter Summary ---
Author Organization [facility] Address PO [facility] [address] [place] [address] Phone Care Team Providers Care Steamer Operator Name Role Phone Krys Owens MD Primary Care Provider [phone] Encounter Details Date Type Department Care Team (Late st Contact Info) Description 01/25/2024 Documentation Only [facility] [address] [place] [address] Raquel Alvarado [address] [place] [address] Social History Tobacco Use Types Packs/Day [...] Visit [facility] [address] [place] [address] Wilbur Gamez MD [address] [place] [address] [place] [address] documented as of this encounter Visit Diagnoses Not on filedocumented in this encounter Care Teams Steamer Operator Relationship Specialty Start Date End Date Krys Owens MD [address] [place] [address] PCP - General Internal Medicine 04/06/24 documented as of this encounter
--- OUTSIDE RECORDS SUMMARY | 2024-07-18 18:47 | XMS_ITS | Encounter Summary ---
Author Organization [facility] Address PO [facility] [address] [place] [address] Phone Care Team Providers Care Commercial Diver Name Role Phone Krys Owens MD Primary Care Provider [phone] Encounter Details Date Type Department Care Team (Late st Contact Info) Description 04/07/2024 Documentation Only [facility] [address] [place] [address] Raquel Alvarado [address] [place] [phone] Social History Tobacco Use Types Packs/Day [...] Visit [facility] [address] [place] [address] Wilbur Gamez MD [address] [place] [address] [place] [address] documented as of this encounter Visit Diagnoses Not on filedocumented in this encounter Care Teams Commercial Diver Relationship Specialty Start Date End Date Krys Owens MD [address] [place] [address] PCP - General Internal Medicine 11/14/24 documented as of this encounter
--- OUTSIDE RECORDS SUMMARY | 2024-07-18 18:47 | XMS_ITS | Encounter Summary ---
Author Organization [facility] Address PO [facility] [address] [place] [address] Phone Care Team Providers Care Clay Digger Name Role Phone Krys Owens MD Primary Care Provider [phone] Encounter Details Date Type Department Care Team (Late Contact Info) Description 05/03/2024 Documentation Only [facility] [address] [place] [address] Harley AuHARBINGER, [place] [address] [place] [address] Social History Tobacco Use Types [...] Visit [facility] [address] [place] [address] Wilbur Gamez MD [address] [place] [address] [place] [address] documented as of this encounter Visit Diagnoses Not on filedocumented in this encounter Care Teams Clay Digger Relationship Specialty Start Date End Date Krys Owens MD [address] [place], [place] [id number] PCP - General Internal Medicine 04/06/24 documented as of this encounter
--- OUTSIDE RECORDS SUMMARY | 2024-07-18 18:47 | XMS_ITS | Encounter Summary ---
Author Organization [facility] Address PO [facility] [address] [place] [address] Phone Care Team Providers Care Manager Discovery Name Role Phone Krys Owens MD Primary Care Provider [phone] Encounter Details Date Type Department Care Team (Late Contact Info) Description 02/14/2024 Documentation Only [facility] [address] [place] [address] Sruthi [place]PA[place], [place] [address] [place] [address] Social History Tobacco Use Types [...] Visit [facility] [address] [place] [address] Wilbur Gamez MD [address] [place] [address] [place] [address] documented as of this encounter Visit Diagnoses Not on filedocumented in this encounter Care Teams Manager Discovery Relationship Specialty Start Date End Date Krys Owens MD [address] [place], [place] [id number] PCP - General Internal Medicine 04/06/24 documented as of this encounter
== END 2024-07-18 13:44 | disposition home or self-care (01) ==
LOC: HO.HMGCX 13:43
PROVIDERS: Visit Provider Physician Assistant
DX: S70.02XA Contusion of left hip, initial encounter (principal)
CPT/HCPCS: 73502

== ENCOUNTER 2024-07-18 13:43 | Outpatient (AMB) | payer OTHER, SELFPAY ==
--- NOTE | 2024-07-18 14:38 | MHC.OFFWIV ---
Intake Vital Signs 07/18/24 14:41 Weight 110 lb BP 116/78 Blood Pressure Location Rt brachial Position Sitting Pulse 68 Pulse Source Pulse Oximeter Pulse Oximetry (%) 98 Oxygen Delivery Method Room Air Intake Visit Reasons: EP Fall on ice, leg pain (not WC) Intake Note: Patient here because she had a fall on Wednesday on ice and is now having left sided hip pain and swelling. Patient Tobacco Use Status: Former Tobacco user Allergies acetaminophen [Percocet] Allergy (Unknown, Verified 07/18/24 14:42) Vomiting codeine [CODEINE] Allergy (Unknown, Verified 07/18/24 14:42) VOMITING oxycodone [Percocet] Allergy (Unknown, Verified 07/18/24 14:42) Vomiting Do you need a note to return to daycare/school/sports/work: No HPI HPI Comments History of Present Illness Details This is a 64-year-old female with a past medical history of gout, hypertension, kidney failure and coronary artery disease s/p stenting presenting for evaluation of left hip pain. Patient states she slipped on ice last Wednesday and fell onto her left side. Patient denies any head injury or loss of consciousness as a result of her fall. Patient has been using ice compresses and Tylenol without relief of her pain. Patient works at the [employer] and has been able to go to work and perform her duties. [facility] Surgical History S/P drug eluting coronary stent placement Family History Maternal Aunt Breast cancer, Onset Age: 76 Maternal Grandmother Breast cancer, Onset Age: 55 Mother Coronary artery disease Arthritis Gout Father Coronary artery disease Salivary gland cancer Sister Hypertension Maternal Aunt Lung cancer Maternal Grandmother Cancer Brother Gout Other Uterine cancer Social History Household Members Other:: lives alone Housing: Condominium Are you a primary transition of care specialist to a significant other at home: No Do you presently have visiting nurse or other home services: No 75 years or older and lives alone: No Alcohol intake: current Alcohol intake frequency: holidays/special occasions only Alcohol type: wine Patient Tobacco Use Status: Former Tobacco user e-Cigarette/Vaping Use: Never Used service: No Current occupational status: employed Review of Systems Const All systems reviewed & are unremarkable except as noted in HPI and below Eyes Reports no additional complaints ENT Reports no additional complaints Card Reports no additional complaints Resp Reports no additional complaints GI Reports no additional complaints Reports no additional complaints Musc Reports arthralgias (left hip) Skin/Breast Reports system reviewed and no additional complaints, except as documented Neuro Reports no additional complaints Endo Reports no additional complaints Madi/Lymph Reports no additional complaints Aller/Immun Reports no additional complaints Physical Exam Vital Signs: Last Vital Signs Pulse 68 07/18/24 14:41 BP 116/78 07/18/24 14:41 Pulse Ox 98 07/18/24 14:41 Oxygen Delivery Method Room Air 07/18/24 14:41 Const General: cooperative, comfortable and no acute distress Nutritional Appearance: thin Orientation/consciousness: patient oriented x3 Limitations: no limitations Skin General skin exam: no rashes or lesions noted Neuro General: patient oriented x3 Extrem Other: edema overlying left lateral hip with mild ecchymosis and tenderness to palpation Left lower extremity: full ROM, edema and hip/thigh Details: tenderness, swelling, ecchymosis and other (pain with LLE abduction against resistance and left hip flexion) Psych Appearance: grossly normal Mental Status: mental status grossly normal Insight: Good insight present (Psych) Judgement: Good judgement present (Psych) Results Reviewed Results Reviewed: No acute imaging noted on x-ray of the left hip. Assessment & Plan Assessment & Plan (1) Contusion of left hip: Comment: No acute findings noted on imaging of the left hip. Patient will be discharged home with prednisone. Code(s): S70.02XA - Contusion of left hip, initial encounter Qualifiers: Encounter type: initial encounter Qualified Code(s): S70.02XA - Contusion of left hip, initial encounter Plan: Prednisone 40 mg x 5 days. Heat at 20 minute intervals. Physical therapy evaluation as needed. Orders: Orders XR hip LT min 2V Today S70.02XA - Contusion of left hip, initial encounter Medications: New prednisone 40 mg (2 x 20 mg) PO DAILY 10 tabs 0RF Coding Level of Care Code New Pt Level 4 (29767) Diagnoses Contusion of left hip, initial encounter S70.02XA Encounter type: initial encounter Time Spent (min) 20
[2024-07-18 14:41] VITALS: BP 116/78; PULSE 68; O2SAT 98
--- OUTSIDE RECORDS SUMMARY | 2024-07-18 16:57 | XMS_ITS | Encounter Summary ---
Author Organization [facility] Address [address] [place] [address] Care Team Providers Care Behavioral Interventionist Name Role Phone Otilia Herr DO Primary Care Pro vider Unavailable Krys Owens MD Primary Care Provider [phone] Encounter Details Date Type Department Care Team Description 10/24/2018 Telephone Adult Medicine [address] [address] Otilia Herr DO Social History Tobacco Use Types Packs/Day Years Used Date Smoking Tobacco: Every Day Cigarettes 1 45 Smokeless Tobacco: Never Alcohol Use Standard Drinks/Week Comments Yes 0 (1 standard drink = 0.6 oz pur e alcohol) socially Sex Assigned at Date Recorded Not on file Job Start Date Occupation Industry Not on file Not on file Not on file documented as of this encounter Miscellaneous Notes * Telephone Encounter - Bety Awad M.A. - 10/24/2018 4:53 PM EDT Faxed. * Telephone Encounter - Marcelina Driscoll PA-C - 10/24/2018 4:29 PM EDT Letter written * Telephone Encounter - Ele Bowles M.A. - 10/24/2018 4:26 PM EDT Pt seen by Marcelina Driscoll PA-C today * Telephone Encounter - Bhavani Landon - 10/24/2018 4:22 PM EDT Mackenzie from [facility] patient's insurance requires a letter of medical necessity for a leftthumb spica splint. Would like this faxed to [phone]. Would like this done by noon tomorrow. documented in this encounter Plan of Treatment Not on file documented as of this encounter Visit Diagnoses Not on filedocumented in this encounter Care Teams Behavioral Interventionist Relationship Specialty Start Date End Date Otilia Herr DO PCP - General Internal Medicine 08/09/13 11/03/20 Krys Owens MD [address] [place] [address] PCP - General Internal Medicine 11/04/20 documented as of this encounter
--- OUTSIDE RECORDS SUMMARY | 2024-07-18 16:57 | XMS_ITS | Encounter Summary ---
Author Organization [facility] Address [address] [place] [address] Care Team Providers Care Spiral Tube Winder Name Role Phone Otilia Herr DO Primary Care Pro vider Unavailable Krys Owens MD Primary Care Provider [phone] Reason for Visit * Reason Onset Date Comments Bump 09/13/2018 Leg Pain 09/13/2018 Encounter Details Date Type Department Care Team Description 09/13/2018 Telephone Adult Medicine [address] [address] Otilia Herr DO Bump; Leg Pain Social History Tobacco Use Types Packs/Day Years [...] encounter Miscellaneous Notes * Telephone Encounter - Jeanne Patricia PA-C - 09/13/2018 9:43 AM EDT If you want you can book her in my 2:45 and I can re eval today too * Telephone Encounter - Marjorie Kenny R.N. - 09/13/2018 9:28 AM EDT Pt feel the lump in her elg is l;larger, she has no new pain in her leg, no change in CSM, denies any chest pain or SOB, she has been using hot compresses and elevating her leg but the lump is larger. Pt has schedule U/S for september 21 , will call xray to see if this can be done sooner U/s to be done today at 12:45 * Telephone Encounter - Elise Cary - 09/13/2018 9:01 AM EDT Patient returning call. * Telephone Encounter - Marjorie Kenny R.N. - 09/13/2018 8:56 AM EDT I left a message for the patient to return my call. Pt was seen yesterday with ? Superficial thrombophlebitis, no calf pain, had firm tender area on leg, advised to have u/s . Use wm compress and compression, NSAID for pain * Telephone Encounter - Stephanie Rosa - 09/13/2018 8:42 AM EDT Pt was seen yesterday for a blood clot on her left leg and she states it got bigger and its still painful. Would like to speak to a nurse. documented in this encounter Plan of Treatment Not on file documented as of this encounter Visit Diagnoses Not on filedocumented in this encounter Care Teams Spiral Tube Winder Relationship Specialty Start Date End Date Otilia Herr DO PCP - General Internal Medicine 08/09/13 11/03/20 Krys Owens MD [address] [place] [address] PCP - General Internal Medicine 11/04/20 documented as of this encounter
--- OUTSIDE RECORDS SUMMARY | 2024-07-18 16:58 | XMS_ITS | Encounter Summary ---
Author Organization [facility] Address [address] [place] [address] Care Team Providers Care Grinder Gear Name Role Phone Krys Owens MD Primary Care Provider [phone] Reason for Visit * Reason Comments E-prescribe Rx Request Encounter Details Date Type Department Care Team Description 11/20/2020 Refill Rheumatology - [address] [id number] Dhruv Phillips MD E-prescribe Rx Request Social History Tobacco Use Types Packs/Day Years Used Date Smoking Tobacco: Former Cigarettes 45 Q uit: 10/16/2020 Smokeless Tobacco: Never Comments:approx 1-2 cigarett es daily Alcohol Use Standard Drinks/Week Comments Yes 0 (1 standard drink = 0.6 oz pur e alcohol) socially Sex Assigned at Date Recorded Not on file Job Start Date Occupation Industry Not on file Not on file Not on file COVID-19 Exposure Response Date Recorded In the last month, have you been in contact with someone who was confirmed or suspected to have Coronavirus / COVID-19? No / Unsure 11/04/2020 10:10 AM EDT documented as of this encounter Plan of Treatment Not on file documented as of this encounter Visit Diagnoses Diagnosis Seropositive rheumatoid arthritis (HCC) Rheumatoid arthritis documented in this encounter Care Teams Grinder Gear Relationship Specialty Start Date End Date Krys Owens MD [address] [place] [address] PCP - General Internal Medicine 11/04/20 documented as of this encounter
--- OUTSIDE RECORDS SUMMARY | 2024-07-18 16:58 | XMS_ITS | Encounter Summary ---
Author Organization [facility] Address [address] [place] [address] Care Team Providers Care Lacing Operator Name Role Phone Krys Owens MD Primary Care Provider [phone] Encounter Details Date Type Department Care Team Description 11/13/2020 Progress Developer Report Medical Records [address] [place] [address] Abstract, Provider Social History Tobacco Use Types Packs/Day Years [...] on filedocumented in this encounter Care Teams Lacing Operator Relationship Specialty Start Date End Date Krys Owens MD [address] [place] [id number] PCP - General Internal Medicine 11/04/20 documented as of this encounter
--- OUTSIDE RECORDS SUMMARY | 2024-07-18 16:58 | XMS_ITS | Encounter Summary ---
Author Organization [facility] Address [address] [facility] [address] [place] [address] Phone Care Team Providers Care Police Reserves Commander Name Role Phone Krys Owens MD Primary Care Provider [phone] Encounter Details Date Type Department Care Team (Late st Contact Info) Description 12/29/2023 Documentation Only [facility] [address] [place] [address] Raquel Alvarado [address] [place] [phone] Social History Tobacco Use Types Packs/Day Years Used Date Smoking Tobacco: Former Cigarettes Comments Unknown Sex and Gender Information Value Date Recorded Sex Assigned at Not on file Legal Sex Female 8:07 AM EDT Gender Identity Not on file Sexual Orientation Not on file documented as of this encounter Plan of Treatment Upcoming Encounters Date Type Department Care Team (Late st Contact Info) Description 10/23/2024 4:00 PM EDT Office Visit [facility] [address] [place] [address] Wilbur Gamez MD [address] [place] [address] [place] [address] documented as of this encounter Visit Diagnoses Not on filedocumented in this encounter Care Teams Police Reserves Commander Relationship Specialty Start Date End Date Krys Owens MD [address] [place] [address] PCP - General Internal Medicine 04/06/24 documented as of this encounter
--- OUTSIDE RECORDS SUMMARY | 2024-07-18 16:58 | XMS_ITS | Encounter Summary ---
Author Organization [facility] Address [address] [facility] [address] [place] [address] Phone Care Team Providers Care Vocational Counselor Name Role Phone Krys Owens MD Primary Care Provider [phone] Encounter Details Date Type Department Care Team (Late Contact Info) Description 05/03/2024 Documentation Only [facility] [address] [place] [address] [place], [place] [address] [place] [address] Social History Tobacco Use Types Packs/Day Years Used Date Smoking Tobacco: Every Day Cigarettes Comments Unknown Sex and Gender Information Value Date Recorded Sex Assigned at Not on file Legal Sex Female 8:07 AM EDT Gender Identity Not on file Sexual Orientation Not on file documented as of this encounter Plan of Treatment Upcoming Encounters Date Type Department Care Team (Late Contact Info) Description 10/23/2024 4:00 PM EDT Office Visit [facility] [address] [place] [address] Wilbur Gamez MD [address] [place] [address] [place] [address] documented as of this encounter Visit Diagnoses Not on filedocumented in this encounter Care Teams Vocational Counselor Relationship Specialty Start Date End Date Krys Owens MD [address] [place], [place] [id number] PCP - General Internal Medicine 04/06/24 documented as of this encounter
--- OUTSIDE RECORDS SUMMARY | 2024-07-18 16:58 | XMS_ITS | Encounter Summary ---
Author Organization [facility] Address [address] [place] [address] Care Team Providers Care Acrobatic Rigger Name Role Phone Otilia Herr DO Primary Care Pro vider Unavailable Krys Owens MD Primary Care Provider [phone] Encounter Details Date Type Department Care Team Description 08/26/2017 Release of Information Medical Records [address] [place] [id number] Abstract, Provider Social History Tobacco Use Types Packs/Day Years Used Date Smoking Tobacco: Former Cigarettes 0.3 Q uit: 02/28/2015 Smokeless Tobacco: Never Comments:1 jpack q 3 days Alcohol Use Standard Drinks/Week Comments Yes 0 [...] on filedocumented in this encounter Care Teams Acrobatic Rigger Relationship Specialty Start Date End Date Otilia Herr DO PCP - General Internal Medicine 08/09/13 11/03/20 Krys Owens MD [address] [place] [address] PCP - General Internal Medicine 11/04/20 documented as of this encounter
--- OUTSIDE RECORDS SUMMARY | 2024-07-18 16:58 | XMS_ITS | Encounter Summary ---
Author Organization [facility] Address [address] [place] [address] Care Team Providers Care Livestock Slaughterer Name Role Phone Otilia Herr DO Primary Care Pro vider Unavailable Krys Owens MD Primary Care Provider [phone] Reason for Visit * Reason Onset Date Comments Faxed Order 03/27/2016 Encounter Details Date Type Department Care Team Description 03/27/2016 Telephone Adult Medicine [address] [address] Otilia Herr DO Faxed Order Social History Tobacco Use Types Packs/Day Years Used Date Smoking Tobacco: Former Cigarettes 0.3 Q uit: 02/28/2015 Comments:5 cigarettes daily Alcohol Use Standard Drinks/Week Comments Yes 0 (1 standard drink = 0.6 oz pur e alcohol) socially Sex Assigned at Date Recorded Not on file Job Start Date Occupation Industry Not on file Not on file Not on file documented as of this encounter Miscellaneous Notes * Telephone Encounter - Gillian La - 03/27/2016 8:36 AM EDT Faxed order from [facility]/diagnostic mammogram/sent to Dr Garcia for signing documented in this encounter Plan of Treatment Not on file documented as of this encounter Visit Diagnoses Not on filedocumented in this encounter Care Teams Livestock Slaughterer Relationship Specialty Start Date End Date Otilia Herr DO PCP - General Internal Medicine 08/09/13 11/03/20 Krys Owens MD [address] [place] [address] PCP - General Internal Medicine 11/04/20 documented as of this encounter
--- OUTSIDE RECORDS SUMMARY | 2024-07-18 16:58 | XMS_ITS | Encounter Summary ---
[facility] Address [address] [place] [address] Care Team Providers Care Necktie Operator Pockets And Pieces Name Role Phone Krys Owens MD Primary Care Provider Encounter Details Date Type Department Care Team Description 04/23/2022 Telephone Gastroenterology - [address] [place] [address] Juliet Ann MD [address] [place] [address] [id number] Social History Tobacco Use Types Packs/Day Years [...] Exposure Response Date Recorded In the last 10 days, have yo u been in contact with someone who was confirmed or suspected to have Coronavirus/COVID-19? No / Unsure 04/13/2022 2:23 PM EST documented as of this encounter Miscellaneous Notes * Telephone Encounter - Ida Newsome - 04/30/2022 8:59 AM EST LM on for patient to call back. See message below from Deepthi. * Telephone Encounter - Deepthi De Anda PA-C - 04/23/2022 8:24 AM EST Please call patient and advise gastroenterology ([phone]) has been attempting to contact her to schedule colonoscopy. Please document if refusing. Additionally, she needs to select new PCP and schedule annual physical exam with new PCP. Deepthi De Anda PA-C * Telephone Encounter - Mariam Alvarado - 04/23/2022 7:50 AM EST I have been unable to reach this patient by phone to schedule a colonoscopy. A letter is being sent. documented in this encounter Plan of Treatment Not on file documented as of this encounter Visit Diagnoses Not on filedocumented in this encounter Care Teams Necktie Operator Pockets And Pieces Relationship Specialty Start Date End Date Krys Owens MD [address] [place] [address] PCP - General Internal Medicine 11/04/20 documented as of this encounter
--- OUTSIDE RECORDS SUMMARY | 2024-07-18 16:58 | XMS_ITS | Encounter Summary ---
[facility] Address [address] [place] [address] Care Team Providers Care Regional Account Manager Name Role Phone Otilia Herr DO Primary Care Pro vider Unavailable Krys Owens MD Primary Care Provider [phone] Encounter Details Date Type Department Care Team Description 03/04/2015 Hospital Medical Records [address] [place] [address] Deo May Social History Tobacco Use Types Packs/Day Years [...] on filedocumented in this encounter Care Teams Regional Account Manager Relationship Specialty Start Date End Date Otilia Herr DO PCP - General Internal Medicine 08/09/13 11/03/20 Krys Owens MD [address] [place] [id number] PCP - General Internal Medicine 11/04/20 documented as of this encounter
--- OUTSIDE RECORDS SUMMARY | 2024-07-18 16:58 | XMS_ITS | Encounter Summary ---
Author Organization [facility] Address [address] [place] [address] Care Team Providers Care Loft Rigger Name Role Phone Otilia Herr DO Primary Care Pro vider Unavailable Krys Owens MD Primary Care Provider [phone] Encounter Details Date Type Department Care Team Description 10/31/2019 Systems Operator Report Medical Records [address] [place] [address] [facility] Social History Tobacco Use Types Packs/Day Years Used Date Smoking Tobacco: Some Days Cigarettes 45 Smokeless Tobacco: Never Comments:approx 1-2 cigarett es [...] on filedocumented in this encounter Care Teams Loft Rigger Relationship Specialty Start Date End Date Otilia Herr DO PCP - General Internal Medicine 08/09/13 11/03/20 Krys Owens MD [address] [place] [address] PCP - General Internal Medicine 11/04/20 documented as of this encounter
--- OUTSIDE RECORDS SUMMARY | 2024-07-18 16:58 | XMS_ITS | Encounter Summary ---
Author Organization [facility] Address [address] [place] [address] Care Team Providers Care Entry Level Sales Representative Name Role Phone Otilia Herr DO Primary Care Pro vider Unavailable Krys Owens MD Primary Care Provider [phone] Encounter Details Date Type Department Care Team Description 12/28/2013 Telephone Adult Medicine [address] [address] Otilia Herr DO Social History Tobacco Use Types Packs/Day Years Used Date Smoking Tobacco: Every Day Comments:5 cigarettes daily Alcohol Use Standard Drinks/Week Comments Yes 0 (1 standard drink = 0.6 oz pur e alcohol) socially Sex Assigned at Date Recorded Not on file Job Start Date Occupation Industry Not on file Not on file Not on file documented as of this encounter Miscellaneous Notes * Telephone Encounter - Francisco LovelaceP.NAllan - 12/28/2013 11:48 AM EDT Ledt message for patient to call nurse ([phone]) see result note documented in this encounter Plan of Treatment Not on file documented as of this encounter Visit Diagnoses Not on filedocumented in this encounter Care Teams Entry Level Sales Representative Relationship Specialty Start Date End Date Otilia Herr DO PCP - General Internal Medicine 08/09/13 11/03/20 Krys Owens MD [address] [place] [address] PCP - General Internal Medicine 11/04/20 documented as of this encounter
--- OUTSIDE RECORDS SUMMARY | 2024-07-18 16:58 | XMS_ITS | Encounter Summary ---
[facility] Address [address] [place] [address] Care Team Providers Care Project Technician Name Role Phone Otilia Herr DO Primary Care Pro vider Unavailable Krys Owens MD Primary Care Provider [phone] Encounter Details Date Type Department Care Team Description 03/01/2018 Transfer Records Medical Records [address] [place] [address] Gamaliel Ellsworth MD Social History Tobacco Use Types Packs/Day Years [...] on filedocumented in this encounter Care Teams Project Technician Relationship Specialty Start Date End Date Otilia Herr DO PCP - General Internal Medicine 08/09/13 11/03/20 Krys Owens MD [address] [place] [address] [id number] PCP - General Internal Medicine 11/04/20 documented as of this encounter
--- OUTSIDE RECORDS SUMMARY | 2024-07-18 16:58 | XMS_ITS | Encounter Summary ---
Author Organization [facility] Address [address] [facility] [address] [place] [address] Phone Care Team Providers Care Wireless Engineer Name Role Phone Krys Owens MD Primary Care Provider [phone] Encounter Details Date Type Department Care Team (Late st Contact Info) Description 04/07/2024 Documentation Only [facility] [address] [place] [address] Raquel Alvarado [address] [place] [address] Social History Tobacco Use Types Packs/Day [...] Visit [facility] [address] [place] [address] Wilbur Gamez MD [address] [place] [address] [place] [address] documented as of this encounter Visit Diagnoses Not on filedocumented in this encounter Care Teams Wireless Engineer Relationship Specialty Start Date End Date Krys Owens MD [address] [place] [address] PCP - General Internal Medicine 11/14/24 documented as of this encounter
--- OUTSIDE RECORDS SUMMARY | 2024-07-18 16:58 | XMS_ITS | Encounter Summary ---
Author Organization [facility] Address [address] [place] [address] Care Team Providers Care Accountant Auditor Name Role Phone Otilia Herr DO Primary Care Pro vider Unavailable Krys Owens MD Primary Care Provider [phone] Reason for Visit * Reason Onset Date Comments refill request 08/09/2018 Encounter Details Date Type Department Care Team Description 08/09/2018 Refill Adult Medicine [address] [address] Otilia Herr DO refill request Social History Tobacco Use Types Packs/Day Years [...] encounter Miscellaneous Notes * Telephone Encounter - Ele Bowles M.A. - 08/09/2018 1:39 PM EDT Lab Results Component Value Date NA 140 03/03/2017 K 4.8 03/03/2017 CO2 22.7 03/03/2017 CL 103 03/03/2017 BUN 17 03/03/2017 CREAT 0.6 03/03/2017 GLU 87 03/03/2017 CA 9.0 03/03/2017 GFR > 60 03/03/2017 * Telephone Encounter - Karen Mark - 08/09/2018 11:44 AM EDT Patient would like script to be: E-PRESCRIBED/FAXED TO PHARMACY WHEN WAS THE PATIENT'S LAST APPOINTMENT IN ADULT MEDICINE? 06/18/18 WHEN WAS THE LAST TIME THE PATIENT SAW THEIR PCP? 03/19/15 Does patient have an upcoming appointment? Pharmacy will let patient know to call to schedule follow up (THE MEDICATION REQUESTED IS ON THE MED LIST ABOVE) All of the medications requested were on the CURRENT MEDS list Did you check the Pharmacy information above?: YES Patient wants: 90 -day supply Is this a mail order prescription request ? NO If the refill is from a FAXED refill request what is the RX # listed on the fax? N/A Patients current insurance carrier is: Payor: [employer] / Plan: INDEMNITY $20 ANDOVER / Product Type:PPO [id number] documented in this encounter Plan of Treatment Not on file documented as of this encounter Visit Diagnoses Not on filedocumented in this encounter Care Teams Accountant Auditor Relationship Specialty Start Date End Date Otilia Herr DO PCP - General Internal Medicine 08/09/13 11/03/20 Krys Owens MD [address] [place] [address] PCP - General Internal Medicine 11/04/20 documented as of this encounter
--- OUTSIDE RECORDS SUMMARY | 2024-07-18 16:58 | XMS_ITS | Encounter Summary ---
[facility] Address [address] [place] [address] Care Team Providers Care Crusher Foreman Name Role Phone Otilia Herr DO Primary Care Pro vider Unavailable Krys Owens MD Primary Care Provider [phone] Encounter Details Date Type Department Care Team Description 06/05/2015 Orders Only Adult Medicine [address] [address] Otilia Herr DO Abnormal mammogram (Primary Dx) Social History Tobacco Use Types Packs/Day Years Used Date Smoking Tobacco: Every Day Cigarettes 0.3 Comments:5 cigarettes daily Alcohol Use Standard Drinks/Week Comments Yes 0 (1 standard drink = 0.6 oz pur e alcohol) socially Sex Assigned at Date Recorded Not on file Job Start Date Occupation Industry Not on file Not on file Not on file documented as of this encounter Plan of Treatment Not on file documented as of this encounter Results * SONO GUIDE NEEDLE BIOPSY (06/17/2015) Otilia Lawrence DO ULTRASOUN D documented in this encounter Visit Diagnoses Diagnosis Abnormal mammogram- Primary Abnormal mammogram, unspecified documented in this encounter Care Teams Crusher Foreman Relationship Specialty Start Date End Date Otilia Herr DO PCP - General Internal Medicine 08/09/13 11/03/20 Krys Owens MD [address] [place] [address] PCP - General Internal Medicine 11/04/20 documented as of this encounter
--- OUTSIDE RECORDS SUMMARY | 2024-07-18 16:58 | XMS_ITS | Encounter Summary ---
Author Organization [facility] Address [address] [facility] [address] [place] [address] Phone Care Team Providers Care Storage Battery Tester Name Role Phone Krys Owens MD Primary Care Provider [phone] Encounter Details Date Type Department Care Team (Late Contact Info) Description 12/21/2023 Documentation Only [facility] [address] [place] [address] [place], [place] [address] [place] [address] Social History Tobacco Use Types Packs/Day Years Used Date Smoking Tobacco: Never Assessed Comments Unknown Sex and Gender Information Value Date Recorded Sex Assigned at Not on file Legal Sex Female 8:07 AM EDT Gender Identity Not on file Sexual Orientation Not on file documented as of this encounter Plan of Treatment Upcoming Encounters Date Type Department Care Team (Late Contact Info) Description 10/23/2024 4:00 PM EDT Office Visit [facility] [address] [place] [address] Wilbur Gamez MD [address] [place] [address] [place] [address] documented as of this encounter Visit Diagnoses Not on filedocumented in this encounter Care Teams Storage Battery Tester Relationship Specialty Start Date End Date Krys Owens MD [address] [place], [place] [id number] PCP - General Internal Medicine 04/06/24 documented as of this encounter
--- OUTSIDE RECORDS SUMMARY | 2024-07-18 16:58 | XMS_ITS | Encounter Summary ---
[facility] Address [address] [place] [address] Care Team Providers Care Duralumin Metalworker Name Role Phone Otilia Herr DO Primary Care Pro vider Unavailable Krys Owens MD Primary Care Provider [phone] Encounter Details Date Type Department Care Team Description 03/07/2015 Hospital Medical Records [address] [place] [address] Social History Tobacco Use Types Packs/Day Years [...] on filedocumented in this encounter Care Teams Duralumin Metalworker Relationship Specialty Start Date End Date Otilia Herr DO PCP - General Internal Medicine 08/09/13 11/03/20 Krys Owens MD [address] [place] [address] PCP - General Internal Medicine 11/04/20 documented as of this encounter
--- OUTSIDE RECORDS SUMMARY | 2024-07-18 16:58 | XMS_ITS | Encounter Summary ---
[facility] Address [address] [place] [address] Care Team Providers Care Electronic Specialist Name Role Phone Otilia Herr DO Primary Care Pro vider Unavailable Krys Owens MD Primary Care Provider [phone] Reason for Visit * Reason Onset Date Comments medication problems 05/28/2017 need 90 day supply Encounter Details Date Type Department Care Team Description 05/28/2017 Telephone Adult Medicine - [address] [address] Raya Rosa PA-C [address] [place] [id number] medication problems (need 90 day supply) Social History Tobacco Use Types Packs/Day Years [...] encounter Miscellaneous Notes * Telephone Encounter - Nadia Welch M.A. - 05/28/2017 10:43 AM EST Date of last office visit was 04/03/17. Lab Results Component Value Date NA 140 03/03/2017 K 4.8 03/03/2017 CO2 22.7 03/03/2017 CL 103 03/03/2017 BUN 17 03/03/2017 CREAT 0.6 03/03/2017 GLU 87 03/03/2017 CA 9.0 03/03/2017 GFR > 60 03/03/2017 * Telephone Encounter - Soledad Urbano - 05/28/2017 9:51 AM EST Need 90 day supply Patient would like script to be: E-PRESCRIBED/FAXED TO PHARMACY WHEN WAS THE PATIENT'S LAST APPOINTMENT IN ADULT MEDICINE? 04/03/17 WHEN WAS THE LAST TIME THE PATIENT SAW THEIR PCP? 03/09/15 Does patient have an upcoming appointment? no (THE MEDICATION REQUESTED IS ON THE MED LIST ABOVE) All of the medications requested were on the CURRENT MEDS list Did you check the Pharmacy information above?: YES Patient wants: 90 -day supply Is this a mail order prescription request ? NO Patients current insurance carrier is: Payor: [facility] / Plan: INDEMNITY $20 ANDOVER / Product Type:PPO [id number] documented in this encounter Plan of Treatment Not on file documented as of this encounter Visit Diagnoses Not on filedocumented in this encounter Care Teams Electronic Specialist Relationship Specialty Start Date End Date Otilia Herr DO PCP - General Internal Medicine 08/09/13 11/03/20 Krys Owens MD [address] [place] [address] PCP - General Internal Medicine 11/04/20 documented as of this encounter
--- OUTSIDE RECORDS SUMMARY | 2024-07-18 16:58 | XMS_ITS | Clinical Summary ---
Author Organization [facility] Address [address] [place] [address] Phone Care Team Providers Care Administrative Office Specialist Name Role Phone Krys Owens MD Primary Care Provider [phone] Allergies Active Allergy Reactions Criticality Noted Date Comments Codeine Vomiting 12/22/2023 Medications aspirin (ST TOÑA) 81 MG EC tablet Take 81 mg by mouth 1 (one) time each day Active atorvastatin (LIPITOR) 80 MG tablet Take 80 mg by mouth 1 (one) time each day Active Adalimumab (HUMIRA SC) Inject under the skin Active metoprolol succinate XL (TOPROL XL) 50 MG 24 hr tablet Take 50 mg by mouth 1 (one) time each day Do not crush or chew. Active lisinopril 10 MG tablet Take 1 tablet (10 mg total) by mouth 1 (one) time each day 30 tablet 04/06/2024 5 Active allopurinol (ZYLOPRIM) 100 MG tablet Take 1 tablet (100 mg total) by mouth 1 (one) time each day 30 tablet 04/06/2024 5 Active Active Problems Problem Noted Date Diagnosed Date Chronic kidney disease, stage 2 (mild) 4 Acute nontraumatic kidney injury, not otherwise specified Vitamin B12 deficiency Unintentional weight loss Hypertension Hyperlipidemia Essential hypertension Encounters Date Type Department Care Team Description 06/02/2024 Office Communication [facility] [place] [address] [place] [address] Raquel Alvarado 05/03/2024 Documentation Only [facility] [address] [place] [address] Harley Au MA from Last 3 Months Immunizations Name Administration Dates Next Due Moderna SARS-COV-2 06/12/2021,08/09/2020, 021,06/13/2020 Family History Medical History Relation Comments Coronary artery disease Father Breast cancer Maternal Grandmother Arthritis Mother Coronary artery disease Mother Breast cancer Mother's Sister 1 Lung cancer Mother's Sister 2 Hypertension Sister Relation Status Comments Father Maternal Grandmother Mother Mother's Sister 1 Mother's Sister 2 Sister Social History Tobacco Use Types Packs/Day Years Used Date Smoking Tobacco: Every Day Cigarettes Comments Unknown Sex and Gender Information Value Date Recorded Sex Assigned at Not on file Legal Sex Female 8:07 AM EDT Gender Identity Not on file Sexual Orientation Not on file Last Filed Vital Signs Vital Sign Reading Time Taken Comments Blood Pressure 131/85 04/06/2024 2:34 PM EST Pulse 66 01/13/2024 3:46 PM EDT Temperature - - Respiratory Rate - - Oxygen Saturation - - Inhaled Oxygen Concentration - - Weight - - Height - - Body Mass Index - - Plan of Treatment Upcoming Encounters Date Type Department Care Team (Late st Contact Info) Description 10/23/2024 4:00 PM EDT Office Visit [facility] [address] [address] Wilbur Gamez MD [address] [facility] [place] [phone] Health Maintenance Due Date Last Done Comments Breast Cancer Screening 1960 Pneumococcal Vaccine: 65+ Ye ars (1 of 2 - PCV) 1964 Colorectal Cancer Screening: Annual FOBT 2007 Colorectal Cancer Screening: Sigmoidoscopy 2007 Influenza Vaccine (#1) 2024 Colorectal Cancer Screening: Colonoscopy 04/14/2034 04/14/2024 Hepatitis B Vaccine Aged Out No longe r eligible based on patient's age to complete this topic Insurance [facility] Care Teams Administrative Office Specialist Relationship Specialty Start Date End Date Krys Owens MD [address] [place] [address] PCP - General Internal Medicine 04/06/24
--- OUTSIDE RECORDS SUMMARY | 2024-07-18 16:58 | XMS_ITS | Encounter Summary ---
Author Organization [facility] Address [address] [facility] [address] [place] [address] Phone Care Team Providers Care Blue Line Hanger Name Role Phone Krys Owens MD Primary Care Provider Encounter Details Date Type Department Care Team (Late st Contact Info) Description 01/25/2024 Documentation Only [facility] [address] [place] [address] Raquel Alvarado [address] [place] [phone] Social History Tobacco Use Types Packs/Day [...] Visit [facility] [address] [place] [address] Wilbur Gamez MD [address] [place] [address] [place] [address] documented as of this encounter Visit Diagnoses Not on filedocumented in this encounter Care Teams Blue Line Hanger Relationship Specialty Start Date End Date Krys Owens MD [address] [place] [address] PCP - General Internal Medicine 04/06/24 documented as of this encounter
--- OUTSIDE RECORDS SUMMARY | 2024-07-18 16:58 | XMS_ITS | Encounter Summary ---
Author Organization [facility] Address [address] [facility] [address] [place] [address] Phone Care Team Providers Care Electrical Repairer Name Role Phone Krys Owens MD Primary Care Provider [phone] Encounter Details Date Type Department Care Team (Late st Contact Info) Description 12/29/2023 Documentation Only [facility] [address] [place] [address] Raquel Alvarado [address] [place] [phone] Social History Tobacco Use Types Packs/Day [...] Visit [facility] [address] [place] [address] Wilbur Gamez MD [address] [place] [address] [place] [address] documented as of this encounter Visit Diagnoses Not on filedocumented in this encounter Care Teams Electrical Repairer Relationship Specialty Start Date End Date Krys Owens MD [address] [place] [address] PCP - General Internal Medicine 04/06/24 documented as of this encounter
--- OUTSIDE RECORDS SUMMARY | 2024-07-18 16:58 | XMS_ITS | Encounter Summary ---
[facility] Address [address] [place] [address] Care Team Providers Care Automatic Car Wash Attendant Name Role Phone Otilia Herr DO Primary Care Pro vider Unavailable Krys Owens MD Primary Care Provider [phone] Encounter Details Date Type Department Care Team Description 10/16/2020 Hospital Medical Records [address] [place] [address] Social History Tobacco Use Types Packs/Day Years [...] on filedocumented in this encounter Care Teams Automatic Car Wash Attendant Relationship Specialty Start Date End Date Otilia Herr DO PCP - General Internal Medicine 08/09/13 11/03/20 Krys Owens MD [address] [place] [address] PCP - General Internal Medicine 11/04/20 documented as of this encounter
--- OUTSIDE RECORDS SUMMARY | 2024-07-18 16:58 | XMS_ITS | Encounter Summary ---
Author Organization [facility] Address [address] [place] [address] Care Team Providers Care Geophysical Drafter Name Role Phone Otilia Herr DO Primary Care Pro vider Unavailable Krys Owens MD Primary Care Provider [phone] Reason for Referral * Non JUAN (Routine) - Authorized/Booked Specialty Diagnoses / Procedures Referred By Destinee sibley Referred To Contact Gastroenterology Procedures REFERRAL TO GASTROENTEROLOGY Otilia Herr DO [address] [place] [address] G[facility] [place] [address] [place] [id number] Referral ID Status Reason Start Date Expiration Date V isits Requested Visits Authorized [id number] Authorized/B ooked 07/27/2019 07/26/2020 1 1 Reason for Visit * Reason Onset Date Comments Appointment-Internal Referral 07/26/2019 Encounter Details Date Type Department Care Team Description 07/26/2019 Telephone Adult Medicine [address] [address] Otilia Herr DO Appointment-Internal Referral Social History Tobacco Use Types Packs/Day Years [...] encounter Miscellaneous Notes * Telephone Encounter - Sofie Blas - 07/26/2019 11:02 AM EST Please review this patients new referral request. The referral has been pended. Please complete thefollowing: If approved> sign order If denied>please give instructions and route to your practice nursing pool. Practice nurse should inform referrals and the patient if denied. * Telephone Encounter - Griselda Gil - 07/26/2019 9:54 AM EST Request for a referral to a [facility] Specialist for a patient with a [facility] PCP. If patient does NOT have a Yenny PCP they must obtain a referral from their PCP before being seen-do not submit request to Referrals department-contact patient. Specialty patient is being referred to: Gastroenterology Name of Specialist patient is seeing: next gastroenterology provider available Reason/diagnosis for visit: colonoscopy Date of appointment: TBA If retro, date referral needs to start: FILEMON Whitaker Payor: [employer] / Plan: INDEMNITY $20 ANDOVER / Product Type: PPO [id number] documented in this encounter Plan of Treatment Not on file documented as of this encounter Visit Diagnoses Not on filedocumented in this encounter Care Teams Geophysical Drafter Relationship Specialty Start Date End Date Otilia Herr DO PCP - General Internal Medicine 08/09/13 11/03/20 Krys Owens MD [address] [place] [id number] PCP - General Internal Medicine 11/04/20 documented as of this encounter
--- OUTSIDE RECORDS SUMMARY | 2024-07-18 16:58 | XMS_ITS | Encounter Summary ---
Author Organization [facility] Address [address] [place] [address] Care Team Providers Care Automobile Insurance Claim Examiner Name Role Phone Krys Owens MD Primary Care Provider [phone] Encounter Details Date Type Department Care Team Description 11/05/2022 Picc Nurse Report Medical Records [address] [place] [address] [facility] [address] [place] [address] Social History Tobacco Use Types Packs/Day Years [...] on filedocumented in this encounter Care Teams Automobile Insurance Claim Examiner Relationship Specialty Start Date End Date Krys Owens MD [address] [place] [address] PCP - General Internal Medicine 11/04/20 documented as of this encounter
--- OUTSIDE RECORDS SUMMARY | 2024-07-18 16:58 | XMS_ITS | Encounter Summary ---
Author Organization [facility] Address [address] [facility] [address] [place] [address] Phone Care Team Providers Care Questioned Documents Examiner Name Role Phone Krys Owens MD Primary Care Provider [phone] Encounter Details Date Type Department Care Team (Late Contact Info) Description 02/14/2024 Documentation Only [facility] [address] [place] [address] Sruthi MaysAZALEA, [place] [address] [place] [address] Social History Tobacco Use Types [...] Visit [facility] [address] [place] [address] Wilbur Gamez MD [address] [place] [address] [place] [address] documented as of this encounter Visit Diagnoses Not on filedocumented in this encounter Care Teams Questioned Documents Examiner Relationship Specialty Start Date End Date Krys Owens MD [address] [place], [place] [id number] PCP - General Internal Medicine 04/06/24 documented as of this encounter
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
--- OUTSIDE RECORDS SUMMARY | 2024-07-18 16:58 | XMS_ITS | Encounter Summary ---
Author Organization [facility] Address [address] [facility] [address] [place] [address] Phone Care Team Providers Care Dentist Name Role Phone Krys Owens MD Primary Care Provider [phone] Encounter Details Date Type Department Care Team (Late st Contact Info) Description 12/29/2023 Documentation Only [facility] [address] [place] [address] Raquel Alvarado [address] [place] [phone] Social History Tobacco Use Types Packs/Day [...] Visit [facility] [address] [place] [address] Wilbur Gamez MD [address] [place] [address] [place] [address] documented as of this encounter Visit Diagnoses Not on filedocumented in this encounter Care Teams Dentist Relationship Specialty Start Date End Date Krys Owens MD [address] [place] [address] PCP - General Internal Medicine 04/06/24 documented as of this encounter
--- OUTSIDE RECORDS SUMMARY | 2024-07-18 16:58 | XMS_ITS | Encounter Summary ---
Author Organization [facility] Address [address] [place] [address] Care Team Providers Care Coat Examiner Name Role Phone Krys Owens MD Primary Care Provider [phone] Encounter Details Date Type Department Care Team Description 10/29/2021 Lead Radiation Therapist Report Medical Records [address] [place] [address] [facility] Social History Tobacco Use Types Packs/Day Years [...] on filedocumented in this encounter Care Teams Coat Examiner Relationship Specialty Start Date End Date Krys Owens MD [address] [place] [address] PCP - General Internal Medicine 11/04/20 documented as of this encounter
--- OUTSIDE RECORDS SUMMARY | 2024-07-18 16:58 | XMS_ITS | Encounter Summary ---
Author Organization [facility] Address [address] [place] [address] Care Team Providers Care Test Borer Helper Name Role Phone Otilia Herr DO Primary Care Pro vider Unavailable Krys Owens MD Primary Care Provider [phone] Encounter Details Date Type Department Care Team Description 09/18/2016 Hospital Medical Records [address] [place] [address] Social History Tobacco Use Types Packs/Day Years [...] on filedocumented in this encounter Care Teams Test Borer Helper Relationship Specialty Start Date End Date Otilia Herr DO PCP - General Internal Medicine 08/09/13 11/03/20 Krys Owens MD [address] [place] [address] PCP - General Internal Medicine 11/04/20 documented as of this encounter
--- OUTSIDE RECORDS SUMMARY | 2024-07-18 16:58 | XMS_ITS | Encounter Summary ---
[facility] Address [address] [place] [address] Care Team Providers Care Senior Dot Net Developer Name Role Phone Otilia Herr DO Primary Care Pro vider Unavailable Krys Owens MD Primary Care Provider [phone] Encounter Details Date Type Department Care Team Description 04/05/2017 Hospital Medical Records [address] [place] [address] Social History Tobacco Use Types Packs/Day Years [...] on filedocumented in this encounter Care Teams Senior Dot Net Developer Relationship Specialty Start Date End Date Otilia Herr DO PCP - General Internal Medicine 08/09/13 11/03/20 Krys Owens MD [address] [place] [address] PCP - General Internal Medicine 11/04/20 documented as of this encounter
--- OUTSIDE RECORDS SUMMARY | 2024-07-18 16:58 | XMS_ITS | Clinical Summary ---
Author Organization [facility] Address [address] [place] [address] Phone Care Team Providers Care Guide Tour Name Role Phone Krys Owens MD Primary Care Provider [phone] Allergies Active Allergy Reactions Criticality Noted Date Comments Codeine Nausea And Vomiting High 08/09/2013 VOMITING Medications nystatin (MYCOSTATIN) cream TAKE 1 APPLICATION (TOPICAL) 3 TIMES PER DAY FOR 14 DAYS 4 Active cyanocobalamin, vitamin B-12, 1,000 mcg capsule Take 1 Capsule by mouth. 4 Active adalimumab-adaz (HYRIMOZ) 40 mg/0.4 mL pen Inject 40 mg into the skin every 14 days. Rheum Active lisinopriL (PRINIVIL,ZESTR IL) 20 mg tablet Take 1 tablet (20 mg total) by mouth 1 (one) time each day. 1 Active nitroglycerin (NITROSTAT) 0.[address] 1 tablet (0.4 mg total) under the tongue every 5 (five) minutes if needed. 1 Active metoprolol succinate (TOPROL-XL) 50 mg 24 hr tablet Take 50 mg by mouth daily. 5 Active atorvastatin (LIPITOR) 80 mg tablet Take 80 mg by mouth daily. 5 Active aspirin 81 mg EC tablet Take 81 mg by mouth daily. 5 Active nicotine (NICODERM CQ) 14 mg/[address] 1 patch on the skin. 4 Active allopurinoL (ZYLOPRIM) 100 mg tablet Take 1 tablet (100 mg total) by mouth 1 (one) time each day. 4 04/06/20 25 Active predniSONE (DELTASONE) 20 mg tablet TAKE 1 TABLET BY MOUTH 1 TIME EACH DAY FOR 5 DAYS. Active Active Problems Problem Noted Date Diagnosed Date Tobacco use 03/07/2024 Ischemic heart disease 02/02/2020 Varicose veins of both lower extremities with pa in 09/13/2018 Seropositive rheumatoid arthritis 07/21/2018 Overview (03/03/2024): Onset ~2013 - palindromic pattern 10/08-12/08 - sulfasalazine tried - GI intolerance Jun 2018: methotrexate started. Stopped due to ineffectiveness, 2019 Essential hypertension 10/15/2016 Hyperlipidemia 10/15/2016 CAD (coronary artery disease) 03/19/2015 Overview (03/03/2024): H/o NSTEMI B12 deficiency 08/30/2014 Encounters Date Type Department Care Team Description 05/02/2024 Telephone Gastroenterology - [place] [address] [facility] [address] [place] [address] Reina Muñiz NP provider call back from Last 3 Months Immunizations Name Administration Dates Next Due Moderna SARS-CoV-2 COVID-19, mRNA, LNP-S, preservative free 06/12/2021,08/09/2020,07/12/2020,2020 Td Tetanus diptheria (Tdvax) 7yo and older 11/30/2023 Surgical History Surgery Date Site/Laterality Comments HYSTERECTOMY 1994 PROCEDURE: HISTORICAL HYSTERECTOMY; COMMENT: ovaries intact, TVH BREAST BIOPSY 30S PROCEDURE: BX BREAST; PERC NEEDLE CORE W/IMAG GUID; COMMENT: LT. BREAST BX-BENIGN BREAST SURGERY PROCEDURE: MN UNLISTED PROCEDURE BREAST; COMMENT: REMOVED CYST LT. BREAST Medical History Medical History Date Comments CRP elevated DX:CRP elevated Frozen shoulder DX:Frozen should er Abnormal mammogram DX:Abnormal m ammogram CAD (coronary artery disease) DX :CAD (coronary artery disease) Pulmonary nodule DX:Pulmonary no dule Calcified granuloma of lung DX:C alcified granuloma of lung; COMMENT: LDCT Chronic kidney disease Gout Arthritis Rheumatoid arthritis (CMS/HCC) Hypertension Hyperlipidemia NSTEMI (non-ST elevated myoc ardial infarction) (CMS/HCC) 03/19/2015 Ischemic heart disease Family History Medical History Relation Name Comments Breast cancer Aunt M. AUNT.40S maternal Other: salivary gland cancer Father cad Breast cancer Maternal Grandmother 50S Arthritis Mother Coronary artery disease Mother Other cancer Mother's side 1 grandmother, unknown primary Lung cancer Mother's side 2 aunt Uterine cancer Other 1 M. [id number] ?cousin Breast cancer Other 2 M. [id number] Hypertension Sister Colon cancer Neg Hx Ovarian cancer Neg Hx Relation Name Status Comments Aunt M. AUNT.40S Alive Father Maternal Grandmother 50S Mother Mother's side 1 Mother's side 2 Other 1 M. [id number] Other 2 M. [id number] Other 3 M. [id number] Alive Sister Social History Tobacco Use Types Packs/Day Years Used Date Smoking Tobacco: Former Cigarettes Q uit: 10/16/2020 Smokeless Tobacco: Never Alcohol Use Standard Drinks/Week Comments Yes 0 (1 standard drink = 0.6 oz pur e alcohol) Interpersonal Safety Answer Date Record ed Physical Abuse 04/14/2024 Verbal Abuse 04/14/2024 Comments No Sex and Gender Information Value Date Recorded Sex Assigned at Not on file Legal Sex Female 10:45 PM EST Gender Identity Not on file Sexual Orientation Not on file Obstetrics History Last Filed Vital Signs Vital Sign Reading Time Taken Comments Blood Pressure 117/56 04/14/2024 4:09 PM EST Pulse 65 04/14/2024 3:49 PM EST Temperature 36.4 ??C (97.6 ??F) 04/14/2024 3:49 PM ES T Respiratory Rate 13 04/14/2024 4:09 PM EST Oxygen Saturation 100% 04/14/2024 4:09 PM EST Inhaled Oxygen Concentration - - Weight 49.4 kg (109 lb) 04/14/2024 2:46 PM EST Height 152.4 cm (5') 04/14/2024 2:46 PM EST Body Mass Index 21.29 04/14/2024 2:46 PM EST Plan of Treatment Health Maintenance Due Date Last Done Comments Pneumococcal Vaccine: 50+ Years (1 of 1 - PCV) 2008 Zoster Vaccines (1 of 2) 2008 Breast Cancer Screening 06/17/2017 06/17/2015 Depression Screening 04/26/2022 Osteoporosis Screening (Bone Density Screening) 04/26/2022 Social Influencers of Health Screening 04/26/2022 COVID-19 Vaccine ( season) 2024 06/12/2021, 08/09/2020, 07/12/2020, Additional history exists Influenza Vaccine (#1) 2024 Hypertension/CHF/CAD Annual BMP Blood Test 03/21/2025 03/21/2024, 11/30/2023, 11/30/2023 Falls Risk Assessment 04/14/2025 04/14/2024 Cholesterol Screening (Lipid Panel) 07/19/2025 07/19/2020 RSV Immunization Patients 60+ Years Old (1 - 1-dose 75+ series) 2033 DTaP,Tdap,and Td Vaccines (2 - Td or Tdap) 11/29/2033 11/30/2023 Colorectal Cancer Screening: Colonoscopy 04/14/2034 04/14/2024 Hepatitis C Screening Completed 08/07/2020 HIB Vaccines Aged Out No longer eligi ble based on patient's age to complete this topic HPV Vaccines Aged Out No longer eligi ble based on patient's age to complete this topic Hepatitis A Vaccines Aged Out No long er eligible based on patient's age to complete this topic Hepatitis B Vaccines Aged Out No long er eligible based on patient's age to complete this topic IPV Vaccines Aged Out No longer eligi ble based on patient's age to complete this topic MMR Vaccines Aged Out No longer eligi ble based on patient's age to complete this topic Meningococcal ACWY Vaccine Aged Out N o longer eligible based on patient's age to complete this topic Meningococcal B Vacine Aged Out No lo nger eligible based on patient's age to complete this topic RSV Immunization Patients Under 20 months Aged Out No longer eligible based on patient's age to complete this topic Varicella Vaccines Aged Out No longer eligible based on patient's age to complete this topic Medical Devices Implanted Type Area Pig Machine Crane Operator Device Identifier Shelf Expiration Date Model / Serial / Lot Stents Stents N/A: Heart Procedures Procedure Name Priority Date/Time Associated Diagnosis Comments COLONOSCOPY Routine 04/14/2024 3:48 PM EST Weight loss ANNUAL BMP BLOOD TEST Routine 11/30/2023 HEPATITIS C SCREENING Routine 08/07/2020 LIPID PANEL Routine 07/19/2020 from Last 3 Months or Most Recently Relevant to Health Maintenance Results * COLONOSCOPY Anesthesia - MAC; RUST ENDOSCOPY (04/14/2024 3:48 PM EST) Anatomical Region Laterality Modality Endoscopy 04/14/2024 3:13 PM EST Impressions 04/14/2024 3:51 PM EST - Hemorrhoids found on perianal exam. ? - One 6 mm polyp in the ascending colon, removed with ? a cold snare. Resected and retrieved. ? - The entire examined colon is normal. Biopsied. ? - The examination was otherwise normal on direct and ? retroflexion views. Recommendation: ?- - Discharge patient to home. ? - High fiber diet. ? - Continue present medications. ? - Await pathology results. ? - Repeat colonoscopy for surveillance based on ? pathology results. ? - F/U with primary GI provider (as instructed prior to ? the booking of today's procedure) to discuss a long ? term therapeutic plan. Narrative 04/14/2024 3:51 PM [facility] Patient Name: Ilan Ruth Procedure Date: 04/14/2024 3:13 PM Date of : 1960 Age: 64 Gender: Female Note Status: Finalized Attending MD: Gm Woods DO, [id number] Procedure Date No Time: 04/14/2024 Procedure: ? Colonoscopy Indications: ? Weight loss, Incidental change in bowel habits noted Providers: ? Gm Woods DO Referring MD: ?Krys Owens MD Medicines: ? Monitored Anesthesia Care Complications: ? No immediate complications. Estimated blood loss: ? Minimal. Estimated Blood Loss: ? Estimated blood loss was minimal. Procedure: ? Pre-Anesthesia Assessment: ? - - Prior to the procedure, a History and Physical was ? performed, and patient medications and allergies were ? reviewed. The patient is competent. The risks and ? benefits of the procedure and the sedation options and ? risks were discussed with the patient. All questions ? were answered and informed consent was obtained. ? Patient identification and proposed procedure were ? verified by the physician, the nurse, the ? anesthesiologist, the adjunct art history instructor and the automotive glass technician ? in the pre-procedure area in the endoscopy suite. ? Mental Status Examination: alert and oriented. Airway ? Examination: normal oropharyngeal airway and neck ? mobility. Respiratory Examination: clear to ? auscultation. CV Examination: normal. Prophylactic ? Antibiotics: The patient does not require prophylactic ? antibiotics. Prior Anticoagulants: The patient has ? taken no anticoagulant or antiplatelet agents. ASA ? Grade Assessment: II - A patient with severe systemic ? disease. After reviewing the risks and benefits, the ? patient was deemed in satisfactory condition to ? undergo the procedure. The anesthesia plan was to use ? monitored anesthesia care (MAC). Immediately prior to ? administration of medications, the patient was ? re-assessed for adequacy to receive sedatives. The ? heart rate, respiratory rate, oxygen saturations, ? blood pressure, adequacy of pulmonary ventilation, and ? response to care were monitored throughout the ? procedure. The physical status of the patient was ? re-assessed after the procedure. ? After I obtained informed consent, the scope was ? passed under direct vision. Throughout the procedure, ? the patient's blood pressure, pulse, and oxygen ? saturations were monitored continuously. The Olympus ? Pediatric Colonoscope was introduced through the anus ? and advanced to the cecum, identified by appendiceal ? orifice and ileocecal valve. The colonoscopy was ? performed without difficulty. The patient tolerated ? the procedure well. The quality of the bowel ? preparation was good. Findings: ?Hemorrhoids were found on perianal exam. ? A 6 mm polyp was found in the ascending colon. The ? polyp was sessile. The polyp was removed with a cold ? snare. Resection and retrieval were complete. ? Estimated blood loss was minimal. ? The colon (entire examined portion) appeared normal. ? Biopsies were taken with a cold forceps for histology. ? Estimated blood loss was minimal. ? The exam was otherwise without abnormality on direct ? and retroflexion views. Procedure Code(s): ? --- Professional --- ? 72807, Colonoscopy, flexible; with removal of ? tumor(s), polyp(s), or other lesion(s) by snare ? technique ? 28590, 59, Colonoscopy, flexible; with biopsy, single ? or multiple Diagnosis Code(s): ? --- Professional --- ? R63.4, Abnormal weight loss ? D12.2, Benign neoplasm of ascending colon ? K64.9, Unspecified hemorrhoids CPT copyright 2020 [employer]. All rights reserved. The codes documented in this report are preliminary and upon fringing machine operator review may be revised to meet current compliance requirements. GM Woods DO 04/14/2024 3:51:13 PM This report has been signed electronically.Gm Woods DO Number of Addenda: 0 Note Initiated On: 04/14/2024 3:13 PM Scope Withdrawal Time: 0 hours 7 minutes 59 seconds Scope In: 3:33:02 PM Scope Out: 3:47:22 PM ? Endoscopy Department at [facility] - [address] [place] [address], ? [place] [address] Procedure Note Gm Woods DO - 04/14/2024 [facility] GI Patient Name: Ilan Ruth Procedure Date: 04/14/2024 3:13 PM Date of : 1960 Age: 64 Gender: Female Note Status: Finalized Attending MD: Gm Woods DO, [id number] Procedure Date No Time: 04/14/2024 Procedure: Colonoscopy Indications: Weight loss, Incidental change in bowel habitsnoted Providers: Gm Woods DO Referring MD: Krys Owens MD Medicines: Monitored Anesthesia Care Complications: No immediate complications. Estimated blood loss: Minimal. Estimated Blood Loss: Estimated blood loss was minimal. Procedure: Pre-Anesthesia Assessment: - - Prior to the procedure, a History and Physicalwas performed, and patient medications and allergieswere reviewed. The patient is competent. The risks and benefits of the procedure and the sedation optionsand risks were discussed with the patient. Allquestions were answered and informed consent was obtained. Patient identification and proposed procedure were verified by the physician, the nurse, the anesthesiologist, the adjunct art history instructor and thetechnician in the pre-procedure area in the endoscopy suite. Mental Status Examination: alert and oriented.Airway Examination: normal oropharyngeal airway and neck mobility. Respiratory Examination: clear to auscultation. CV Examination: normal. Prophylactic Antibiotics: The patient does not requireprophylactic antibiotics. Prior Anticoagulants: The patient has taken no anticoagulant or antiplatelet agents. ASA Grade Assessment: II - A patient with severesystemic disease. After reviewing the risks and benefits,the patient was deemed in satisfactory condition to undergo the procedure. The anesthesia plan was touse monitored anesthesia care (MAC). Immediately priorto administration of medications, the patient was re-assessed for adequacy to receive sedatives. The heart rate, respiratory rate, oxygen saturations, blood pressure, adequacy of pulmonary ventilation,and response to care were monitored throughout the procedure. The physical status of the patient was re-assessed after the procedure. After I obtained informed consent, the scope was passed under direct vision. Throughout theprocedure, the patient's blood pressure, pulse, and oxygen saturations were monitored continuously. TheOlympus Pediatric Colonoscope was introduced through theanus and advanced to the cecum, identified byappendiceal orifice and ileocecal valve. The colonoscopy was performed without difficulty. The patient tolerated the procedure well. The quality of the bowel preparation was good. Findings: Hemorrhoids were found on perianal exam. A 6 mm polyp was found in the ascending colon. The polyp was sessile. The polyp was removed with acold snare. Resection and retrieval were complete. Estimated blood loss was minimal. The colon (entire examined portion) appearednormal. Biopsies were taken with a cold forceps forhistology. Estimated blood loss was minimal. The exam was otherwise without abnormality ondirect and retroflexion views. Procedure Code(s): --- Professional --- 14515, Colonoscopy, flexible; with removal of tumor(s), polyp(s), or other lesion(s) by snare technique 55131, 59, Colonoscopy, flexible; with biopsy,single or multiple Diagnosis Code(s): --- Professional --- R63.4, Abnormal weight loss D12.2, Benign neoplasm of ascending colon K64.9, Unspecified hemorrhoids CPT copyright 2020 [employer]. All rights reserved. The codes documented in this report are preliminary and upon fringing machine operator reviewmay be revised to meet current compliance requirements. GM Woods DO 04/14/2024 3:51:13 PM This report has been signed electronically.Gm Woods DO Number of Addenda: 0 Note Initiated On: 04/14/2024 3:13 PM Scope Withdrawal Time: 0 hours 7 minutes 59 seconds Scope In: 3:33:02 PM Scope Out: 3:47:22 PM Endoscopy Department at [facility] - [address] [place] [id number] IMPRESSION: - Hemorrhoids found on perianal exam. - One 6 mm polyp in the ascending colon, removedwith a cold snare. Resected and retrieved. - The entire examined colon is normal. Biopsied. - The examination was otherwise normal on directand retroflexion views. Recommendation: - - Discharge patient to home. - High fiber diet. - Continue present medications. - Await pathology results. - Repeat colonoscopy for surveillance based on pathology results. - F/U with primary GI provider (as instructed priorto the booking of today's procedure) to discuss a group home therapeutic plan. Result [facility] Gm Woods DO GI~PROCEDURE ORDERABLES Final Re sult * Annual BMP Blood Test (11/30/2023) [facility] Annual BMP Blood Test abstracted Result [facility] Provider HEALTH MAINTENANCE Final Result * Hepatitis C Screening (08/07/2020) [facility] Hepatitis C Screening abstracted Result [facility] Provider HEALTH MAINTENANCE Final Result * Lipid panel (07/19/2020) [facility] LDL/HDL Ratio 2 0 - 4 Triglycerides 95 0 - 150 mg/dL Cholesterol 132 0 - 200 mg/dL HDL 68 >=40 mg/dL LDL Cholesterol 45 0 - 100 mg/dL Blood Venous blood specimen / Unknown Result [facility] Provider LAB BLOOD ORDERABLES Jackie l Result from Last 3 Months or Most Recently Relevant to Health Maintenance Insurance [employer] Care Teams Guide Tour Relationship Specialty Start Date End Date Krys Owens MD [address] [place] [address] PCP - General Internal Medicine 11/04/20
--- OUTSIDE RECORDS SUMMARY | 2024-07-18 16:58 | XMS_ITS | Encounter Summary ---
Author Organization [facility] Address [address] [place] [address] Care Team Providers Care Digital Marketing Strategist Name Role Phone Krys Owens MD Primary Care Provider [phone] Encounter Details Date Type Department Care Team Description 11/05/2022 Orders Only [facility] Lung Screening Program [place] [address] [facility] [address] [place] [id number] Kat Baldwin MD [address] [facility] [address] [place], [place] [id number] History of tobacco abuse Social History Tobacco Use Types Packs/Day Years [...] on file documented as of this encounter Procedures Procedure Name Priority Date/Time Associated Diagnosis Comments CT LOW DOSE LUNG SCREEN ANNUAL Routine 10/28/2022 History of tobacco abuse documented in this encounter Results * CT LOW DOSE LUNG SCREEN ANNUAL (10/28/2022) Kat Baldwin MD CT SCANS documented in this encounter Visit Diagnoses Diagnosis History of tobacco abuse Personal history of tobacco use, presenting hazards to health documented in this encounter Care Teams Digital Marketing Strategist Relationship Specialty Start Date End Date Krys Owens MD [address] [place] [id number] PCP - General Internal Medicine 11/04/20 documented as of this encounter
--- OUTSIDE RECORDS SUMMARY | 2024-07-18 16:58 | XMS_ITS | Encounter Summary ---
Author Organization [facility] Address [address] [place] [address] Care Team Providers Care Buncher Hand Name Role Phone Otilia Herr DO Primary Care Pro vider Unavailable Krys Owens MD Primary Care Provider [phone] Encounter Details Date Type Department Care Team Description 09/14/2016 Hospital Medical Records [address] [place] [address] Social History Tobacco Use Types Packs/Day Years [...] on filedocumented in this encounter Care Teams Buncher Hand Relationship Specialty Start Date End Date Otilia Herr DO PCP - General Internal Medicine 08/09/13 11/03/20 Krys Owens MD [address] [place] [address] PCP - General Internal Medicine 11/04/20 documented as of this encounter
--- OUTSIDE RECORDS SUMMARY | 2024-07-18 16:58 | XMS_ITS | Encounter Summary ---
[facility] Address [address] [place] [address] Care Team Providers Care Solar Field Installation Crew Member Name Role Phone Krys Owens MD Primary Care Provider [phone] Reason for Visit * Reason Onset Date Comments Testing 02/26/2021 Encounter Details Date Type Department Care Team Description 02/26/[address] Scan - [place] [address], [place] [phone] Krys Owens MD [address], [place] [phone] Testing Social History Tobacco Use Types Packs/Day Years [...] have Coronavirus / COVID-19? No / Unsure 02/28/2021 2:25 PM EDT documented as of this encounter Miscellaneous Notes * Telephone Encounter - Krys Owens MD - 02/26/2021 5:02 PM EDT Yes you can change the names of authorizing provider for both * Telephone Encounter - Yaritza Ny MA - 02/26/2021 1:40 PM EDT Good Afternoon, This patient is scheduled for a CT Chest with Contrast for a follow up on abnormal mediastinal lymph nodes on 02/28/21 at 3:00 under an old order from Dr Garcia. Since you are listed as her new PCPwe were wondering if this is an order you would still like done and with your permission can we change the order to you as the authorizing provider? This patient will also need updated labwork to do the contrast injection, which we can put under your name with your permission as well. Please Advise Thank you documented in this encounter Plan of Treatment Not on file documented as of this encounter Visit Diagnoses Not on filedocumented in this encounter Care Teams Solar Field Installation Crew Member Relationship Specialty Start Date End Date Krys Owens MD [address] [place] [id number] PCP - General Internal Medicine 11/04/20 documented as of this encounter
--- OUTSIDE RECORDS SUMMARY | 2024-07-18 16:58 | XMS_ITS | Encounter Summary ---
Author Organization [facility] Address [address] [place] [address] Care Team Providers Care Cook Relief Name Role Phone Otilia Herr DO Primary Care Pro vider Unavailable Krys Owens MD Primary Care Provider [phone] Reason for Visit * Reason Onset Date Comments Prior Authorization 08/26/2020 Encounter Details Date Type Department Care Team Description 08/26/2020 Telephone Rheumatology - [address] [address] Dhruv Phillips MD Prior Authorization Social History Tobacco Use Types Packs/Day Years [...] have Coronavirus / COVID-19? No / Unsure 08/29/2020 10:21 AM EDT documented as of this encounter Miscellaneous Notes * Telephone Encounter - Blanca Haynes L.P.N. - 08/26/2020 4:20 PM EDT Patient left message to call her Returned phone call , asked pt to call me Blanca Haynes L.P.N. * Telephone Encounter - Blanca Haynes L.P.N. - 08/26/2020 2:54 PM EDT Message left for patient to return my call. Blanca Dallas Pugh. ext [phone] Will need Humira teach once she receives medication, sent to [facility] * Telephone Encounter - Dhruv Phillips MD - 08/26/2020 11:59 AM EDT Miley, She will probably need a teach session once she gets the drug Dhruv Phillips MD * Telephone Encounter - Luis Antonio Garcia M.A. - 08/26/2020 10:14 AM EDT CaseId:[id number] Coverage Start Date:07/27/2020 Coverage End Date:11/24/2020 No papers to file as approval information was obtained directly from CoverMeds. Patient will needto be notified once script is sent to [facility]. * Telephone Encounter - Luis Antonio Garcia M.A. - 08/26/2020 9:06 AM EDT PA needed for Humira pen. PA goes to [facility], ID# [id number]. [facility]. PA submitted through CoverMyMeds. [place]: [id number] * Telephone Encounter - Adriano Saucedo - 08/26/2020 8:42 AM EDT Patient called regarding Adalimumab (HUMIRA PEN) 40 MG/0.4ML Pen-injector Kit, stating she still didn't get it since 08/05/2020 (TETO). Rx was send to [facility], but hey don't carry that medication. Rx needsto be send to [facility]. Rheumatology office needs to call [phone] Patient can be called [phone] ext [phone] documented in this encounter Plan of Treatment Not on file documented as of this encounter Visit Diagnoses Diagnosis Seropositive rheumatoid arthritis (HCC) Rheumatoid arthritis documented in this encounter Care Teams Cook Relief Relationship Specialty Start Date End Date Otilia Herr DO PCP - General Internal Medicine 08/09/13 11/03/20 Krys Owens MD [address] [place] [address] PCP - General Internal Medicine 11/04/20 documented as of this encounter
--- OUTSIDE RECORDS SUMMARY | 2024-07-18 16:58 | XMS_ITS | Encounter Summary ---
Author Organization [facility] Address [address] [place] [address] Care Team Providers Care Data Processing Equipment Repairer Name Role Phone Otilia Herr DO Primary Care Pro vider Unavailable Krys Owens MD Primary Care Provider [phone] Encounter Details Date Type Department Care Team Description 03/11/2015 [facility] Medical Records [address] [place] [address] Sunny Canela MD Social History Tobacco Use Types Packs/Day [...] on filedocumented in this encounter Care Teams Data Processing Equipment Repairer Relationship Specialty Start Date End Date Otilia Herr DO PCP - General Internal Medicine 08/09/13 11/03/20 Krys Owens MD [address] [place] [address] [id number] PCP - General Internal Medicine 11/04/20 documented as of this encounter
== END 2024-07-18 15:40 | disposition home or self-care (01) ==
PROVIDERS: Visit Provider Physician Assistant
DX: S70.02XA Contusion of left hip, initial encounter (principal)

== ENCOUNTER → 2024-07-18 15:01 | Outpatient (BNV) | payer OTHER, SELFPAY | PROVIDERS: Visit Provider Radiology Diagnostic Radiology | DX: S70.02XA Contusion of left hip, initial encounter (principal) | CPT/HCPCS: 73502 ==

== ENCOUNTER 2024-07-26 12:59 | Outpatient (REF) | payer OTHER, SELFPAY ==
[2024-07-26 13:40] LABS: MANUAL DIFF FLAG NO
[2024-07-26 14:02] LABS: Basophils Absolute Auto 0.1 X10*3/uL (0.0-0.2); Basophils Percent Auto 1.4 % (0-2); Eosinophils Absolute Auto 0.3 X10*3/uL (0.0-0.4); Eosinophils Percent Auto 4.6 % (0-4); Hematocrit 35.5 % (37.0-47.0); Hemoglobin 11.9 g/dl (12.0-16.0); Imm Gran Abs Auto 0.02 X10*3/uL (0.00-0.03); Imm Gran Pct Auto 0.3 % (0.0-0.4); Lymphocytes Percent Auto 30.9 % (20-40); Mean Corpuscular HGB Conc 33.5 g/dl (31.0-35.0); Mean Corpuscular Hemoglobin 31.8 pg (27.0-33.0); Mean Corpuscular Volume 94.9 fL (80.0-98.0); Mean Platelet Volume 8.8 fL (9.4-12.3); Monocytes Absolute Auto 0.8 X10*3/uL (0.1-1.2); Monocytes Percent Auto 12.8 % (2-11); Neutrophils Absolute Auto 3.2 x10*3/uL (2.0-8.3); Platelet Count 300 X10*3/uL (160-400); Red Blood Count 3.74 X10*6/uL (4.20-5.50); Red Cell Distribution Width 15.3 % (11.0-16.0); White Blood Count 6.3 X10*3/uL (4.8-10.8)
[2024-07-26 14:36] LABS: Alanine Aminotransferase 19 U/L (0-31); Alkaline Phosphatase 124 U/L (39-117); Anion Gap 10 (12-20); Aspartate Amino Transferase 24 U/L (5-31); Bilirubin Total 0.4 mg/dL (0.0-1.0); Blood Urea Nitrogen 19 mg/dL (9-16); C Reactive Protein < 0.04 mg/dL (< or = 0.50); Calcium 8.6 mg/dL (8.4-10.2); Carbon Dioxide 24 mmol/L (22-29); Chloride 110 mmol/L (96-108); Estimated Glomerular Filt Rate > 60; Glucose Random 82 mg/dL (60-115); Potassium 4.6 mmol/L (3.3-5.1); Sodium 139 mmol/L (135-145); Total Protein 7.8 g/dL (6.5-8.0)
[2024-07-26 14:43] LABS: Erythrocyte Sedimentation Rate 10 MM/HR (0-20)
--- OUTSIDE RECORDS SUMMARY | 2024-07-26 15:27 | XMS_ITS | Encounter Summary ---
Author Organization [facility] Address PO [facility] [address] [place] [address] Phone Care Team Providers Care Geriatric Physical Therapist Name Role Phone Krys Owens MD Primary Care Provider [phone] Encounter Details Date Type Department Care Team (Late st Contact Info) Description 12/29/2023 Documentation Only [facility] [address] [place] [address] Raquel Alvarado [address] [place] [address] Social History Tobacco Use Types Packs/Day [...] Visit [facility] [address] [place] [address] Wilbur Gamez MD [address] [place] [address] [place] [address] documented as of this encounter Visit Diagnoses Not on filedocumented in this encounter Care Teams Geriatric Physical Therapist Relationship Specialty Start Date End Date Krys Owens MD [address] [place] [address] PCP - General Internal Medicine 04/06/24 documented as of this encounter
--- OUTSIDE RECORDS SUMMARY | 2024-07-26 15:27 | XMS_ITS | Encounter Summary ---
Author Organization [facility] Address PO [facility] [address] [place] [address] Phone Care Team Providers Care Cylinder Valve Repairer Name Role Phone Krys Owens MD Primary Care Provider [phone] Encounter Details Date Type Department Care Team (Late st Contact Info) Description 12/29/2023 Documentation Only [facility] [address] [place] [address] Raquel Alvarado [address] [place] [phone] Social History Tobacco Use Types Packs/Day [...] [facility] [address] [place] [address] Wilbur Gamez MD [address] [place] [address] [place] [address] documented as of this encounter Visit Diagnoses Not on filedocumented in this encounter Care Teams Cylinder Valve Repairer Relationship Specialty Start Date End Date Krys Owens MD [address] [place] [address] PCP - General Internal Medicine 04/06/24 documented as of this encounter
--- OUTSIDE RECORDS SUMMARY | 2024-07-26 15:27 | XMS_ITS | Encounter Summary ---
Author Organization [facility] Address PO [facility] [address] [place] [address] Phone Care Team Providers Care Home Energy Rater Name Role Phone Krys Owens MD Primary Care Provider [phone] Encounter Details Date Type Department Care Team (Late Contact Info) Description 12/21/2023 Documentation Only [facility] [address] [place] [address] Harley AuWAVER[place], [place] [address] [place] [address] Social History Tobacco Use Types [...] Visit [facility] [address] [place] [address] Wilbur Gamez MD [address] [place] [address] [place] [address] documented as of this encounter Visit Diagnoses Not on filedocumented in this encounter Care Teams Home Energy Rater Relationship Specialty Start Date End Date Krys Owens MD [address] [place], [place] [id number] PCP - General Internal Medicine 04/06/24 documented as of this encounter
--- OUTSIDE RECORDS SUMMARY | 2024-07-26 15:27 | XMS_ITS | Encounter Summary ---
Author Organization [facility] Address PO [facility] [address] [place] [address] Phone Care Team Providers Care Industrial Maintenance Repairer Name Role Phone Krys Owens MD Primary Care Provider [phone] Encounter Details Date Type Department Care Team (Late st Contact Info) Description 12/29/2023 Documentation Only [facility] [address] [place] [address] Raquel Alvarado [address] [place] [phone] Social History Tobacco Use Types Packs/Day [...] Visit [facility] [address] [place] [address] Wilbur Gamez MD [address] [place] [address] [place] [address] documented as of this encounter Visit Diagnoses Not on filedocumented in this encounter Care Teams Industrial Maintenance Repairer Relationship Specialty Start Date End Date Krys Owens MD [address] [place] [address] PCP - General Internal Medicine 04/06/24 documented as of this encounter
--- OUTSIDE RECORDS SUMMARY | 2024-07-26 15:27 | XMS_ITS | Clinical Summary ---
Author Organization [facility] Address [address] [place] [address] Phone Care Team Providers Care Chemist Pharmaceutical Name Role Phone Krys Owens MD Primary Care Provider [phone] Allergies Active Allergy Reactions Criticality Noted Date [...] Communication [facility] [place], [address] [place] [address] Raquel Alvarado 05/03/2024 Documentation Only [facility] [address] [place] [address] Harley Au MA from Last [...] Visit [facility] [address] [address] Wilbur Gamez MD [address] [facility] [place] [address] Health Maintenance Due Date Last Done Comments Breast Cancer Screening 1960 Pneumococcal Vaccine: 65+ Ye ars (1 of 2 - PCV) 1964 Colorectal Cancer Screening: Annual FOBT 2007 Colorectal Cancer Screening: Sigmoidoscopy 2007 Influenza Vaccine (#1) 2024 Colorectal Cancer Screening: Colonoscopy 04/14/2034 04/14/2024 Hepatitis B Vaccine Aged Out No longe r eligible based on patient's age to complete this topic Insurance [employer] [employer] Care Teams Chemist Pharmaceutical Relationship Specialty Start Date End Date Krys Owens MD [address] [place] [address] PCP - General Internal Medicine 04/06/24
--- OUTSIDE RECORDS SUMMARY | 2024-07-26 15:27 | XMS_ITS | Encounter Summary ---
Author Organization [facility] Address PO [facility] [address] [place] [address] Phone Care Team Providers Care Foreign Languages Professor Name Role Phone Krys Owens MD Primary Care Provider [phone] Encounter Details Date Type Department Care Team (Late Contact Info) Description 05/03/2024 Documentation Only [facility] [address] [place] [address] [place], [place] [address] [place] [address] Social History Tobacco Use Types [...] Visit [facility] [address] [place] [address] Wilbur Gamez MD [address] [place] [address] [place] [address] documented as of this encounter Visit Diagnoses Not on filedocumented in this encounter Care Teams Foreign Languages Professor Relationship Specialty Start Date End Date Krys Owens MD [address] [place], [place] [id number] PCP - General Internal Medicine 04/06/24 documented as of this encounter
--- OUTSIDE RECORDS SUMMARY | 2024-07-26 15:27 | XMS_ITS | Encounter Summary ---
Author Organization [facility] Address PO [facility] [address] [place] [address] Phone Care Team Providers Care Meat Slicer Name Role Phone Krys Owens MD Primary Care Provider [phone] Encounter Details Date Type Department Care Team (Late st Contact Info) Description 04/07/2024 Documentation Only [facility] [address] [place] [address] Raquel Alvarado [address] [place] [address] Social History Tobacco Use Types Packs/Day [...] Visit [facility] [address] [place] [address] Wilbur Gamez MD [address] [place] [address] [place] [address] documented as of this encounter Visit Diagnoses Not on filedocumented in this encounter Care Teams Meat Slicer Relationship Specialty Start Date End Date Krys Owens MD [address] [place] [address] PCP - General Internal Medicine 11/14/24 documented as of this encounter
--- OUTSIDE RECORDS SUMMARY | 2024-07-26 15:27 | XMS_ITS | Data Portability ---
Author Organization [facility], [address] Address [address] [place] [address] Care Team Providers Care Chemistry Research Assistant Name Role Phone [facility] Primary Care Provider Assessment No assessment recorded. Plan of Treatment Reminders Order Date Submit Date Provider Last Modified By Organization Details Last Modified Time Details Appointments None recorded. Lab rapid SARS CoV 2 Ag, QL IA, respiratory specimen 2022 023 [place] [address] [facility], [address] [place] [address], [id number], 3 11:25:19 Referral None recorded. Procedures None recorded. Surgeries None recorded. Imaging None recorded. Medication Orders fluticasone propionate 50 mcg/actuati on nasal spray,suspe nsion [address]/[facility]armacy [id number], [address] [place], [address], 3 11:27:07 Tessalon Perles 100 [address] capsule [address] [facility]/Pharmacy #7[facility], [address] [place], [address], 3 11:25:26 prednisone [address] [facility]armacy [facility], [address] [place], [address], 3 11:25:26 cyclobenzap rine 10 mg tablet 2022 023 [email or web address]/Pharmacy #[id number], [address] [place], [address], 13:26:13 Patient TargetsNo targets recorded. Patient Instructions Encounter Date Encounter Id Patient Instructions Last Modified By Organization Details Last Modified Time 08/06/2022 [id number] Drink lots of fluids. Take medications as [...] Unknown Analyte Normal =Negat manisha Not Available [address], [address], 10/08/2022 10:44:47 10/09/19 23 10/08/2022 rapid SARS CoV 2 Ag, QL IA, respi rator y speci men Unknown Analyte negati ve Not Available [address] [address], [address], 10/08/2022 10:44:47 Result Notes None recorded. Problems Name Problem SNOMED Code Status Onset Date Resolution Date Notes Provider Name and Address Organization Details Recorded Time Heart disease 50274573 Active 2022 JAYY issa, [place] - [facility] 3 13:05:14 Hypertensive disorder 95436674 Active 2022 JYAY issa, [place] - [facility] 3 13:05:26 Hypercholestero lemia 70802583 Active 2022 JAYY issa [facility] 3 13:05:36 Problem Notes None recorded. Procedures Surgical History Date Name Laterality Status Provider Name and Address Organization Details Recorded Time placement of stent in cardiac conduit completed JAYY GALDAMEZ [facility] 08/06/2022 13:07:02 Imaging Results None recorded. Procedure Notes None recorded. Medical Equipment None Reported. Allergies Allergen ID Allergen Name Allergen Category Reaction Reaction Severity Criticality Documentation Date Start Date Code Code System Note Provider Name and Address Organization Details Recorded Time 674659 codeine medicatio n vomiting Not available Not available 08/06/2022 2670 RxNorm JAYY issa [facility] 3 13:04:52 Medications Name [...] Updated DateTime 3 152.4 cm 24 kg/m2 83559.8 6 g 97 [degF] 97 % 97 [...] Updated DateTime 3 152.4 cm 24 kg/m2 51505.8 6 g 0 18 /min 100 % 100 % 63 /min 97.9 [degF] 121 mm[Hg] 71 mm[Hg] Ruby ARGUELLES - [facility] 3 10:47:13 Social History Question Answer Notes LastModified by Organizat ion Details LastModified Time Tobacco Smoking Status Current Every Day Smoker KINDRA Rodarte [facility] 08/06/2022 13:07:50 What Is Your Level Of Alcohol Consumption? Occasional [email or web address] Information not available 08/06/2022 Do You Use Any Illicit Or Recreational Drugs? No [email or web address] Information not available 08/06/2022 Have You Recently Traveled Abroad? No [email or web address] Information not available 08/06/2022 Sex: Unknown Functional Status None recorded. Mental Status None recorded. Family History Relationship Description Onset Age of this Age Resolved Age Notes LastModified by Organization Details LastModified Time Father No current problems or disability [email or web address] Not available 08/06 13:06:43 Mother No current problems or disability [email or web address] Not available 08/06 13:06:43 Medical History No [...] 50 mcg/0.25mL dose 08/09/2020 completed Ruby issa [facility] 10/08/2022 10:45:03 Past Encounters Encounter ID Performer Location Encounter Start Date Encounter Closed Date Diagnosis/Indication Diagnosis SNOMED-CT Code Diagnosis ICD10 Code Diagnosis Note [id number] [address] [address] [place] [address] 04/12/2019 10:14:12 04/12/2019 11:24:32 [id number] [facility] [address] [place] [address] 04/14/2019 09:32:35 04/14/2019 10:11:27 [id number] [address] [facility] [facility] [place] [address] 12/07/2018 10:55:27 12/07/2018 13:04:44 [id number] [address] [place] [address] 03/28/2019 10:29:58 03/28/2019 11:33:50 [id number] [address] [place] [address] 12/31/2017 16:03:58 12/31/2017 16:53:01 [id number] [address] [place] [address] 04/19/2022 11:11:08 04/19/2022 12:33:22 [id number] [place] [address] [address] 08/06/2022 09:24:11 08/06/2022 13:28:11 Acute low back pain 586887873 M54.50 [id number] Quentin Aaron MD [address] [place] [address] 10/08/2022 09:34:41 10/08/2022 11:26:51 Upper respiratory infection 05196542 J06.9 Please follow up with PCP or [...] Member ID Guarantor Name 04/14/2019 1 [employer] ([employer]) [id number] 1 Ilan A Ruth [id number] Ilan Ruth 04/19/2022 1 [employer]) [id number] 1 Ilan A Ruth [id number] Ilan Ruth 08/06/2022 1 [employer]) [id number] 1 Ilan A Ruth [id number] Ilan Ruth 10/08/2022 1 [employer] ([employer]) [id number] 1 Ilan A Ruth [id number] Ilan Ruth Notes Date Note Type Note [...] Injections:none Previous PT:none Work Related:no Working:no Kobe Triindad NP [address] [place], [address], [employer] 08/06/2022 13:27:04 10/08/2022 text/html CoughReported bypatient.Quality:d ry; intermittent Duration:4 days Timing:gradual Associated Symptoms:no fever; no chills; no chest pain; no heartburn; no nausea; no vomiting; no edema; no agitation; no wheezing;post nasal drip Quentin Aaron MD [address] [place], [address], [employer] 10/08/2022 11:28:22 OBGyn Episode No OBEpisode recorded.
--- OUTSIDE RECORDS SUMMARY | 2024-07-26 15:27 | XMS_ITS | Clinical Summary ---
Author Organization [facility] Address [address] [place] [address] Phone Care Team Providers Care Identification And Records Commander Name Role Phone Krys Owens MD Primary Care Provider [phone] Allergies Active Allergy Reactions Criticality Noted Date [...] Care Team Description 05/02/2024 Telephone Gastroenterology - [address] [facility] [address] [place] [address] Reina Muñiz NP provider call [...] COMMENT: LT. BREAST BX-BENIGN BREAST SURGERY PROCEDURE: [place] UNLISTED PROCEDURE BREAST; COMMENT: REMOVED CYST LT. [...] 2 aunt Uterine cancer Other 1 M. [id number] ?cousin Breast cancer Other 2 M. [id number] Hypertension Sister Colon cancer Neg Hx Ovarian cancer Neg Hx Relation Name Status Comments Aunt M. AUNT.40S Alive Father Maternal Grandmother 50S Mother Mother's side 1 Mother's side 2 Other 1 M. UIXG40Q Other 2 M. GAYB80V Other 3 M. TEHK89Y Alive Sister Social History Tobacco Use Types [...] this topic Medical Devices Implanted Type [employer] Device Identifier Shelf Expiration Date Model / Serial / Lot Stents Stents N/A: Heart Procedures Procedure Name Priority Date/Time Associated Diagnosis Comments COLONOSCOPY Routine 04/14/2024 3:48 PM EST Weight loss ANNUAL BMP BLOOD TEST Routine 11/30/2023 HEPATITIS C SCREENING Routine 08/07/2020 LIPID PANEL Routine 07/19/2020 from Last 3 Months or Most Recently Relevant to Health Maintenance Results * COLONOSCOPY Anesthesia - MAC; [facility] ENDOSCOPY (04/14/2024 3:48 PM EST) [...] term therapeutic plan. Narrative 04/14/2024 3:51 PM [facility] GI Patient Name: Ilan Ruth Procedure Date: 04/14/2024 3:13 PM Date of : 1960 Age: 64 Gender: Female Note Status: Finalized Attending MD: Gm Woods DO, [id number] Procedure Date No Time: 04/14/2024 Procedure: ? [...] physician, the nurse, the ? anesthesiologist, the programmer or analyst and the lube technician ? in the pre-procedure area in [...] Procedure Code(s): ? --- Professional --- ? 10165, Colonoscopy, flexible; with removal of ? tumor(s), polyp(s), or other lesion(s) by snare ? technique ? 63036, 59, Colonoscopy, flexible; with biopsy, single ? or multiple Diagnosis Code(s): ? --- Professional --- ? R63.4, Abnormal weight loss ? D12.2, Benign neoplasm of ascending colon ? K64.9, Unspecified hemorrhoids CPT copyright 2020 [employer]. All rights reserved. The codes documented in this report are preliminary and upon drier tender review may be revised to meet current compliance requirements. GM Woods DO 04/14/2024 3:51:13 PM This report has been signed electronically.Gm Woods DO Number of Addenda: 0 Note Initiated On: 04/14/2024 3:13 PM Scope Withdrawal Time: 0 hours 7 minutes 59 seconds Scope In: 3:33:02 PM Scope Out: 3:47:22 PM ? Endoscopy Department at [facility] - [address] [place] [address], ? [place] [address] Procedure Note Gm Woods DO - 04/14/2024 [facility] GI Patient Name: Ilan Ruth Procedure Date: 04/14/2024 3:13 PM Date of : 1960 Age: 64 Gender: Female Note Status: Finalized Attending MD: Gm Woods DO, [id number] Procedure Date No Time: 04/14/2024 Procedure: Colonoscopy [...] the physician, the nurse, the anesthesiologist, the programmer or analyst and thetechnician in the pre-procedure area in [...] retroflexion views. Procedure Code(s): --- Professional --- 75394, Colonoscopy, flexible; with removal of tumor(s), polyp(s), or other lesion(s) by snare technique 97121, 59, Colonoscopy, flexible; with biopsy,single or multiple Diagnosis Code(s): --- Professional --- R63.4, Abnormal weight loss D12.2, Benign neoplasm of ascending colon K64.9, Unspecified hemorrhoids CPT copyright 2020 [employer]. All rights reserved. The codes documented in this report are preliminary and upon drier tender reviewmay be revised to meet current compliance requirements. GM Woods DO 04/14/2024 3:51:13 PM This report has been signed electronically.Gm Woods DO Number of Addenda: 0 Note Initiated On: 04/14/2024 3:13 PM Scope Withdrawal Time: 0 hours 7 minutes 59 seconds Scope In: 3:33:02 PM Scope Out: 3:47:22 PM Endoscopy Department at [facility] - [address] [place] [address] IMPRESSION: - Hemorrhoids found on perianal exam. [...] booking of today's procedure) to discuss a alf therapeutic plan. Result [facility] Gm Woods DO GI~PROCEDURE ORDERABLES Final Re sult * Annual BMP Blood Test (11/30/2023) [facility] Annual BMP Blood Test abstracted Result [facility] Provider HEALTH MAINTENANCE Final Result * Hepatitis C Screening (08/07/2020) [facility] Hepatitis C Screening abstracted Result [facility] Provider HEALTH MAINTENANCE Final Result * Lipid panel (07/19/2020) [facility] LDL/HDL Ratio 2 0 - 4 Triglycerides 95 0 - 150 mg/dL Cholesterol 132 0 - 200 mg/dL HDL 68 >=40 mg/dL LDL Cholesterol 45 0 - 100 mg/dL Blood Venous blood specimen / Unknown Result [facility] Provider LAB BLOOD ORDERABLES Jackie l Result from Last 3 Months or Most Recently Relevant to Health Maintenance Insurance [employer] Care Teams Identification And Records Commander Relationship Specialty Start Date End Date Krys Owens MD [address] [place] [address] PCP - General Internal Medicine 11/04/20
--- OUTSIDE RECORDS SUMMARY | 2024-07-26 15:27 | XMS_ITS | Encounter Summary ---
Author Organization [facility] Address PO [facility] [address] [place] [address] Phone Care Team Providers Care Regional Business Manager Name Role Phone Krys Owens MD Primary Care Provider [phone] Encounter Details Date Type Department Care Team (Late Contact Info) Description 02/14/2024 Documentation Only [facility] [address] [place] [address] [place], [place] [address] [place] [address] Social History Tobacco Use Types [...] Visit [facility] [address] [place] [address] Wilbur Gamez MD [address] [place] [address] [place] [address] documented as of this encounter Visit Diagnoses Not on filedocumented in this encounter Care Teams Regional Business Manager Relationship Specialty Start Date End Date Krys Owens MD [address] [place], [place] [id number] PCP - General Internal Medicine 04/06/24 documented as of this encounter
--- OUTSIDE RECORDS SUMMARY | 2024-07-26 15:27 | XMS_ITS | Encounter Summary ---
Author Organization [facility] Address PO [facility] [address] [place] [address] Phone Care Team Providers Care Emergency Doctor Name Role Phone Krys Owens MD Primary Care Provider [phone] Encounter Details Date Type Department Care Team (Late st Contact Info) Description 01/25/2024 Documentation Only [facility] [address] [place] [address] Raquel Alvarado [address] [place] [address] Social History Tobacco Use Types Packs/Day [...] [facility] [address] [place] [address] Wilbur Gamez MD [address] [place] [address] [place] [address] documented as of this encounter Visit Diagnoses Not on filedocumented in this encounter Care Teams Emergency Doctor Relationship Specialty Start Date End Date Krys Owens MD [address] [place] [address] PCP - General Internal Medicine 04/06/24 documented as of this encounter
[2024-07-27 08:53] LABS: HBS Num1 34.72 mIU/mL (0-7.99); HBc Num1 0.08 S/CO (0.00-0.79); HBsAGNum1 0.23 S/CO (0.00-0.99); Hepatitis A Antibody IgM 0.15 Index (0-0.79); Hepatitis B Core Antibody Nonreactive (Nonreactive); Hepatitis B Surface Antigen Negative (Negative); ~HepC Num1 0.19 S/CO (0.00-0.79); ~Hepatitis A Antibody IgM Nonreactive (Nonreactive); ~Hepatitis B Surface Antibody REACTIVE (Nonreactive); ~Hepatitis C Antibody Nonreactive (Nonreactive)
[2024-07-29 11:39] LABS: TS Negative Control Passed; TS Panel A 0; TS Panel B 0; TS Positive Control Passed; TSpotTB Negative (Negative)
== END 2024-07-26 13:00 | disposition home or self-care (01) ==
LOC: HO.LAB 12:59
PROVIDERS: Visit Provider Student in an Organized Health Care Education/Training Program
DX: M05.9 Rheumatoid arthritis with rheumatoid factor, unspecified (principal)
CPT/HCPCS: 36415; 80053; 85025; 85652; 86140; 86481; 86704; 86706; 86709; 86803; 87340

== ENCOUNTER 2024-11-22 10:36 | Outpatient (AMB) | payer OTHER, SELFPAY ==
--- NOTE | 2024-11-22 11:15 | MHC.OFFWIV ---
Intake Vital Signs 11/22/24 11:16 Height 5 ft Weight 113 lb BMI 22.1 BP 112/60 Blood Pressure Location Lt brachial Position Sitting Pulse 67 Pulse Source Pulse Oximeter Temp 98.4 F Pulse Oximetry (%) 100 Oxygen Delivery Method Room Air Intake Visit Reasons: EP Cut arm, won't stop bleeding/not healing Intake Note: presents with non healing laceration right forearm x5 days Patient Tobacco Use Status: Former Tobacco user Allergies acetaminophen (Percocet) Allergy (Unknown, Verified 11/22/24 11:19) Vomiting codeine (CODEINE) Allergy (Unknown, Verified 11/22/24 11:19) VOMITING oxycodone (Percocet) Allergy (Unknown, Verified 11/22/24 11:19) Vomiting Do you need a note to return to daycare/school/sports/work: Yes HPI HPI Comments History of Present Illness Details 64-year-old female with a skin tear on her right forearm which keeps bleeding, it is currently wet but not actively bleeding. Started 5 days ago Won't stop bleeding, takes dailly aspirin, no blood thinner, no NSAIDS Not diabetic PFSH Surgical History S/P drug eluting coronary stent placement Family History Maternal Aunt Breast cancer, Onset Age: 76 Maternal Grandmother Breast cancer, Onset Age: 55 Mother Coronary artery disease Arthritis Gout Father Coronary artery disease Salivary gland cancer Sister Hypertension Maternal Aunt Lung cancer Maternal Grandmother Cancer Brother Gout Other Uterine cancer Social History Household Members Other:: lives alone Housing: Condominium Are you a primary patient care associate to a significant other at home: No Do you presently have visiting nurse or other home services: No 75 years or older and lives alone: No Alcohol intake: current Alcohol intake frequency: holidays/special occasions only Alcohol type: wine Patient Tobacco Use Status: Former Tobacco user e-Cigarette/Vaping Use: Never Used service: No Current occupational status: employed Review of Systems Const All systems reviewed & are unremarkable except as noted in HPI and below Physical Exam Vital Signs: Last Vital Signs Temp 98.4 F 11/22/24 11:16 Pulse 67 11/22/24 11:16 BP 112/60 11/22/24 11:16 Pulse Ox 100 11/22/24 11:16 Oxygen Delivery Method Room Air 11/22/24 11:16 BMI result Body Mass Index 22.1 Const General: cooperative, healthy appearing, comfortable, no acute distress and well developed Orientation/consciousness: patient oriented x3 Limitations: no limitations HEENT Head: Yes normal to inspection Neck Neck: Yes normal visual inspection and Yes supple Skin Other: Right forearm has a 0.75 cm skin tear, no signs of infection, small area of ecchymosis, wet with blood but not actively bleeding Neuro General: patient oriented x3 Assessment & Plan Assessment & Plan (1) Skin tear of right forearm without complication: Code(s): S51.811A - Laceration without foreign body of right forearm, initial encounter Qualifiers: Encounter type: initial encounter Qualified Code(s): S51.811A - Laceration without foreign body of right forearm, initial encounter Plan: Does not appear to be infected but it as it will not stop bleeding, we did apply a small amount of Surgicel with a slight pressure bandage and gauze to be removed tomorrow. Recommended if she has difficulty removing the Surgicel to run her arm under warm water so it falls off and she does not make her skin tear worse. Coding Level of Care Code New Pt Level 3 (45583) Diagnoses Skin tear of right forearm without complication, initial encounter S51.811A Encounter type: initial encounter
[2024-11-22 11:16] VITALS: BP 112/60; PULSE 67; TEMP 36.9; O2SAT 100; BMI 22.1
--- OUTSIDE RECORDS SUMMARY | 2024-11-22 11:17 | XMS_ITS | Data Portability ---
Author Organization [facility]le [facility], [address] Address [address] [place] [address] Care Team Providers Care Regional Rehabilitation Director Name Role Phone [facility] Primary Care Provider Assessment No assessment recorded. Plan of Treatment Reminders Order Date Submit Date Provider Last Modified By Organization Details Last Modified Time Details Appointments None recorded. Lab rapid SARS CoV 2 Ag, QL IA, respiratory specimen 2022 023 [place] [address], [address], 3 11:25:19 Referral None recorded. Procedures None recorded. Surgeries None recorded. Imaging None recorded. Medication Orders fluticasone propionate 50 mcg/actuati on nasal spray,suspe nsion [address]/Pharmacy #[id number], [address] [place], [address], 3 11:27:07 Tessalon Perles 100 mg capsule 2022 023 [facility]/Pharmacy #[id number], [address] [place], [address], 3 11:25:26 prednisone 20 mg tablet 2022 023 [facility]/Pharmacy #[id number], [address] [place], [address], 3 11:25:26 cyclobenzap rine 10 mg tablet 2022 023 [id number], [address] [place], [address], 13:26:13 Patient TargetsNo targets recorded. Patient Instructions Encounter Date Encounter Id Patient Instructions Last Modified By Organization Details Last Modified Time 08/06/2022 [id number] Drink lots of fluids. Take medications as [...] 911 or go to the Emergency Department. [email or web address] Not available 08/06/2022 13:25:53 Reason for Referral None Reported. Results Created Date Observation Date Name Description Value Unit Range Abnormal Flag Note LastModifiedBy Organization Detail LastModifiedTime 10/09/19 23 10/08/2022 rapid SARS CoV 2 Ag, QL IA, respi rator y speci men Unknown Analyte Normal =Negat manisha Not Available [facility] [address] [place] [address], [phone], 10/08/2022 10:44:47 10/09/19 23 10/08/2022 rapid SARS CoV 2 Ag, QL IA, respi rator y speci men Unknown Analyte negati ve Not Available [address] [address] [place] [address], [phone], 10/08/2022 10:44:47 Result Notes None recorded. Problems Name Problem SNOMED Code Status Onset Date Resolution Date Notes Provider Name and Address Organization Details Recorded Time Heart disease 48697674 Active 2022 JAYY issa PA - [facility] 13:05:14 Hypertensive disorder 17169075 Active 2022 JAYY issa, PA - [facility] 3 13:05:26 Hypercholestero lemia 61203168 Active 2022 JAYY issa PA - [facility] 3 13:05:36 Problem Notes None recorded. Procedures Surgical History Date Name Laterality Status Provider Name and Address Organization Details Recorded Time placement of stent in cardiac conduit completed JAYY GALDAMEZ PA - [facility] 08/06/2022 13:07:02 Imaging Results None recorded. Procedure Notes None recorded. Medical Equipment None Reported. Allergies Allergen ID Allergen Name Allergen Category Reaction Reaction Severity Criticality Documentation Date Start Date Code Code System Note Provider Name and Address Organization Details Recorded Time 204338 codeine medicatio n vomiting Not available Not available 08/06/2022 2670 RxNorm JAYY issa [place] - [facility] 3 13:04:52 Medications Name Sig Start [...] Updated DateTime 3 152.4 cm 24 kg/m2 68842.8 6 g 97 [degF] 97 % 97 % 72 /min 16 /min 144 mm[Hg] 76 mm[Hg] JAYY GALDAMEZ PA - [facility] 3 13:10:04 Date Recorded Body height Body mass index (BMI) Body weight Respiratory rate Oxygen saturation Oxygen saturation in Arterial blood by Pulse oximetry Heart rate Body temperature Systolic blood pressure Diastolic blood pressure Provider Name and Address Organization Details Last Updated DateTime 3 152.4 cm 24 kg/m2 36982.8 6 g 18 /min 100 % 100 % 63 /min 97.9 [degF] 121 mm[Hg] 71 mm[Hg] Ruby Barfield PA - [facility] 3 10:47:13 Social History Question Answer Notes LastModified by Netviewer Details LastModified Time Tobacco Smoking Status Current Every Day Smoker JAYY issa PA - [facility] 08/06/2022 13:07:50 Have You Recently Traveled Abroad? No [email or web address] Information not available 08/06/2022 Sex: Unknown Functional Status Question Answer Note LastModified by Netviewer Details LastModified Time Do you use any illicit or recreational drugs? No [email or web address] Information not available 08/06/2022 What is your level of alcohol consumption? Occasional [email or web address] Information not available 08/06/2022 Mental Status None recorded. Family History Relationship Description Onset Age of this Age Resolved Age Notes LastModified by Organization Details LastModified Time Father No current problems or disability [email or web address] Not available 08/06 13:06:43 Mother No current problems or disability Not available 08/06 13:06:43 Medical History No medical history recorded. Gynecological HistoryNo gynecological history recorded. Obstetrics History GPAL:G 0 P 0 0 0 0 Immunizations Vaccine Type Date Status Note Provider Nam e and Address Organization Details Recorded Time COVID-19, mRNA, LNP-S, PF, 100 mcg/0.5mL dose or 50 mcg/0.25mL dose 06/12/2021 completed Ruby Monfette null, PA - [facility] 10/08/2022 10:45:03 COVID-19, mRNA, LNP-S, PF, 100 mcg/0.5mL dose or 50 mcg/0.25mL dose 06/13/2020 completed Ruby Lico issa PA - [facility] 10/08/2022 10:45:03 COVID-19, mRNA, LNP-S, PF, 100 mcg/0.5mL dose or 50 mcg/0.25mL dose 07/12/2020 completed Ruby issa PA - [facility] 10/08/2022 10:45:03 COVID-19, mRNA, LNP-S, PF, 100 mcg/0.5mL dose or 50 mcg/0.25mL dose 08/09/2020 completed Ruby issa PA - [facility] 10/08/2022 10:45:03 Past Encounters Encounter ID Performer Location Encounter Start Date Encounter Closed Date Diagnosis/Indication Diagnosis SNOMED-CT Code Diagnosis ICD10 Code Diagnosis Note [id number] [facility] [address] [place] [address] 04/12/2019 10:14:12 04/12/2019 11:24:32 [id number] [address] [address] [place] [address] 04/14/2019 09:32:35 04/14/2019 10:11:27 [id number] [address] [address] [place] [address] 12/07/2018 10:55:27 12/07/2018 13:04:44 [id number] [address] [facility] [place] [address] 03/28/2019 10:29:58 03/28/2019 11:33:50 [id number] [address] [address] [place] [address] 12/31/2017 16:03:58 12/31/2017 16:53:01 [id number] [address] [facility] [place] [address] 04/19/2022 11:11:08 04/19/2022 12:33:22 [id number] Kobe Trinidad NP [address] [facility] [place] [address] 08/06/2022 09:24:11 08/06/2022 13:28:11 Acute low back pain 354512936 M54.50 [id number] Quentin Aaron MD [address] [facility] [place] [address] 10/08/2022 09:34:41 10/08/2022 11:26:51 Upper respiratory infection 17784764 J06.9 Please follow up with PCP or [...] Recorded Advance Directives Directive None Recorded Payers Insurance Date Sequence Insurance Name Policy Number Policy Hill Covered Member ID Hill Member ID Guarantor Name 10/08/2022 1 HARRIS ([facility]) [id number] 1 Ilan Ruth [id number] Ilan Ruth Notes Date Note Type Note [...] Kobe Trinidad NP [address] [place], [address], [employer] 08/06/2022 13:27:04 10/08/2022 text/html CoughReported bypatient.Quality:d ry; intermittent Duration:4 days Timing:gradual Associated Symptoms:no fever; no chills; no chest pain; no heartburn; no nausea; no vomiting; no edema; no agitation; no wheezing;post nasal drip Quentin Aaron MD [address] [place], [address], [employer] 10/08/2022 11:28:22 OBGyn Episode No OBEpisode recorded.
--- OUTSIDE RECORDS SUMMARY | 2024-11-22 11:17 | XMS_ITS | Encounter Summary ---
Author Organization [facility] Address [address] [place] [address] Phone Care Team Providers Care Sales Support Administrator Name Role Phone Krys Owens MD Primary Care Provider [phone] Encounter Details Date Type Department Care Team (Late Contact Info) Description 08/01/2024 Documentation Only [facility] [address] [place] [address] Raquel Alvarado [address] [place] [address] Social History Tobacco Use Types [...] Care Team (Late st Contact Info) Description 05/07/2025 3:30 PM EST Office Visit [facility] [address] [place] [address] Wilbur Gamez MD [address] [place] [address] [place] [address] documented as of this encounter Visit Diagnoses Not on filedocumented in this encounter Care Teams Sales Support Administrator Relationship Specialty Start Date End Date Krys Owens MD [address] [place] [address] PCP - General Internal Medicine 04/06/24 documented as of this encounter
--- OUTSIDE RECORDS SUMMARY | 2024-11-22 11:17 | XMS_ITS | Encounter Summary ---
Author Organization [facility] Address [address] [place] [address] Care Team Providers Care Ship Loader Name Role Phone Otilia Herr DO Primary Care Pro vider Unavailable Krys Owens MD Primary Care Provider [phone] Reason for Visit * Reason Onset Date Comments Appointment-Internal Referral 09/29/2018 andrey stephenson Encounter Details Date Type Department Care Team Description 09/29/2018 Telephone Adult Medicine [address] [address] Otilia Herr DO Appointment-Internal Referral (gastro) Social History Tobacco Use Types Packs/Day Years [...] encounter Miscellaneous Notes * Telephone Encounter - Marjorie Kenny R.N. - 10/05/2018 8:23 AM EDT #3 call to pt Pt has not responded to triage calls, encounter closed without pt contact. * Telephone Encounter - Marjorie Kenny R.N. - 10/04/2018 4:43 PM EDT I left a message for the patient to return my call. * Telephone Encounter - Elise Cary - 10/04/2018 3:41 PM EDT Patient returning call. * Telephone Encounter - Marjorie Kenny R.N. - 10/04/2018 3:22 PM EDT [phone] (home) [phone] (work) Pt had gi referral 02/2018 for routine colonoscopy . Now is c/o diarrhea I left a message for the patient to return my call. * Telephone Encounter - Jeanne Patricia PA-C - 10/04/2018 8:26 AM EDT Needs ov. Please triage * Telephone Encounter - Otilia [place] DO - 10/03/2018 10:42 PM EDT Pt not seen by me since 2014. Please send to ordering provider * Telephone Encounter - Kailyn Maldonado - 09/29/2018 1:17 PM EDT Please review this patients new referral request. The referral has been pended. Please complete thefollowing: If approved> sign order If denied>please give instructions and route to your practice nursing pool. Practice nurse should inform referrals and the patient if denied. * Telephone Encounter - Griselda Gil - 09/29/2018 1:08 PM EDT Request for a referral to a [facility]ist for a patient with a [facility] PCP. If patient does NOT have a [facility] PCP they must obtain a referral from their PCP before being seen-do not submit request to Referrals department-contact patient. Pawan ARGUELLES and Tommie ARGUELLES should not see patients with community PCP's as they are not billed as specialists. Specialty patient is being referred to: Gastro Name of Specialist patient is seeing: TBA Reason/diagnosis for visit: constant diarrhea no matter what patient eats or drinks, patient informed by Gastro dept that she needs new referral, as previous one Date of appoinment: TBA If retro, date referral needs to start: Otilia Whitaker Payor: [employer] / Plan: INDEMNITY $20 [place] / Product Type: PPO [id number] documented in this encounter Plan of Treatment Not on file documented as of this encounter Visit Diagnoses Not on filedocumented in this encounter Care Teams Ship Loader Relationship Specialty Start Date End Date Otilia Herr DO PCP - General Internal Medicine 08/09/13 11/03/20 Krys Owens MD [address] [place] [address] PCP - General Internal Medicine 11/04/20 documented as of this encounter
--- OUTSIDE RECORDS SUMMARY | 2024-11-22 11:17 | XMS_ITS | Encounter Summary ---
Author Organization [facility] [place] [address] Care Team Providers Care Sports Instructor Name Role Phone Krys Owens MD Primary Care Provider [phone] Encounter Details Date Type Department Care Team (Late st Contact Info) Description 11/03/2024 Telephone Adult Medicine [address] [phone] Yuliet Kenny MA Social History Tobacco Use Types Packs/Day Years [...] on file documented as of this encounter Progress Notes * Yuliet Kenny MA - 11/03/2024 10:58 AM EDT LEFT VOICE MAIL PATIENT NEEDS A AWV VISIT documented in this encounter Plan of Treatment Not on file documented as of this encounter Visit Diagnoses Not on filedocumented in this encounter Care Teams Sports Instructor Relationship Specialty Start Date End Date Krys Owens MD [address] [place] [address] PCP - General Internal Medicine 11/04/20 documented as of this encounter
== END 2024-11-22 12:40 | disposition home or self-care (01) ==
PROVIDERS: Visit Provider Physician Assistant
DX: S51.811A Laceration without foreign body of right forearm, initial encounter (principal)

== ENCOUNTER 2025-01-30 11:40 | Outpatient (AMB) | payer OTHER, SELFPAY ==
[2025-01-30 11:41] VITALS: BP 108/64; PULSE 64; TEMP 36.6; O2SAT 100; BMI 21.7
--- NOTE | 2025-01-30 11:41 | MHC.OFFWIV ---
Intake Vital Signs 01/30/25 11:41 Height 5 ft Weight 111 lb 6 oz BMI 21.7 BP 108/64 Blood Pressure Location Lt brachial Position Sitting Pulse 64 Pulse Source Pulse Oximeter Temp 97.8 F Temp Source Oral Pulse Oximetry (%) 100 Oxygen Delivery Method Room Air Intake Visit Reasons: ep sunburn on left foot Intake Note: Pt presents to the office today for c/o a sunburn on the top of her left foot since 01/22/25. Pt states it blistered and now it bleeds. Patient Tobacco Use Status: Former Tobacco user Allergies acetaminophen (Percocet) Allergy (Unknown, Verified 01/30/25 11:44) Vomiting codeine (CODEINE) Allergy (Unknown, Verified 01/30/25 11:44) VOMITING oxycodone (Percocet) Allergy (Unknown, Verified 01/30/25 11:44) Vomiting HPI HPI Comments History of Present Illness Details History of Present Illness - The patient is a 64-year-old female presenting with sunburn and blistering on the feet. - The sunburn occurred on January 22 during a visit to her son's home in [place], where she was exposed to a saltwater pool. - The patient has a history of dry skin, which was exacerbated by the saltwater exposure, leading to increased dryness and blister formation. - The blisters have not shown signs of infection such as redness, warmth, or pus, but there is slight swelling on the left foot compared to the right. - The patient has been applying a pharmacy ointment to the areas that are open. - She has no pus or drainage. - She denies fever, chills, joint pain, numbness, tingling, or bleeding. Physical Exam General: Cooperative, healthy appearing, comfortable, no acute distress and well developed Orientation: Patient oriented x3 Respiratory: Normal respiratory effort and able to speak in complete sentences. Clear to auscultation bilaterally Cardiovascular: Regular rate and rhythm. Normal S1 and S2 Skin: Blisters and dry skin noted, especially on the right foot and toes. No signs of infection such as redness, warmth, or pus. Skin is not hot or red. No blisters noted. No discharge noted. No warmth noted, no streaking noted. Neuro: Sensation is intact. Extremities: Open blisters present on the base of the toes on the left foot and on the heel of the right. Patient was informed and verbally consented to the use of an ambient scribe for clinic note documentation during this visit. [facility] Surgical History S/P drug eluting coronary stent placement Family History Maternal Aunt Breast cancer, Onset Age: 76 Maternal Grandmother Breast cancer, Onset Age: 55 Mother Coronary artery disease Arthritis Gout Father Coronary artery disease Salivary gland cancer Sister Hypertension Maternal Aunt Lung cancer Maternal Grandmother Cancer Brother Gout Other Uterine cancer Social History Household Members Other:: lives alone Housing: Condominium Are you a primary wild animal caretaker to a significant other at home: No Do you presently have visiting nurse or other home services: No 75 years or older and lives alone: No Alcohol intake: current Alcohol intake frequency: holidays/special occasions only Alcohol type: wine Patient Tobacco Use Status: Former Tobacco user e-Cigarette/Vaping Use: Never Used service: No Current occupational status: employed Review of Systems Const All systems reviewed & are unremarkable except as noted in HPI and below Physical Exam Vital Signs: Last Vital Signs Temp 97.8 F 01/30/25 11:41 Pulse 64 01/30/25 11:41 BP 108/64 01/30/25 11:41 Pulse Ox 100 01/30/25 11:41 Oxygen Delivery Method Room Air 01/30/25 11:41 BMI result Body Mass Index 21.7 Assessment & Plan Assessment & Plan (1) Sunburn: Code(s): L55.9 - Sunburn, unspecified Plan Most likely open wounds from blisters after a sunburn plan - keep area clean and dry - bactroban ointment TID to the open areas on the feet - elevate legs - tylenol or motrin as needed for pain - follow up with PCP Medications: New mupirocin 2% 1 appl topical TID 22 grams 0RF Coding Level of Care Code Est Pt Level 3 (16430) Diagnoses Sunburn L55.9
--- OUTSIDE RECORDS SUMMARY | 2025-01-30 14:11 | XMS_ITS | Encounter Summary ---
Author Organization [facility] Address [address] [place] [address] Phone Care Team Providers Care Pleasure Craft Sailor Name Role Phone Krys Owens MD Primary Care Provider [phone] Encounter Details Date Type Department Care Team (Late Contact Info) Description 05/03/2024 Documentation Only [facility] [address] [place] [address] [place] [address] [place] [address] Social History Tobacco Use Types Packs/Day [...] Visit [facility] [address] [place] [address] Wilbur Gamez MD [address] [place] [address] [place] [address] documented as of this encounter Visit Diagnoses Not on filedocumented in this encounter Care Teams Pleasure Craft Sailor Relationship Specialty Start Date End Date Krys Owens MD [address] [place] [address] PCP - General Internal Medicine 04/06/24 documented as of this encounter
--- OUTSIDE RECORDS SUMMARY | 2025-01-30 14:11 | XMS_ITS | Encounter Summary ---
Author Organization [facility] Address [address] [place] [address] Phone Care Team Providers Care Hand Frame Surgical Elastic Knitter Name Role Phone Krys Owens MD Primary Care Provider Encounter Details Date Type Department Care Team (Late Contact Info) Description 02/14/2024 Documentation Only [facility] [address] [place] [address] [place] [address] [place] [phone] Social History Tobacco Use Types Packs/Day [...] [facility] [address] [place] [address] Wilbur Gamez MD [address] [place] [address] [place] [address] documented as of this encounter Visit Diagnoses Not on filedocumented in this encounter Care Teams Hand Frame Surgical Elastic Knitter Relationship Specialty Start Date End Date Krys Owens MD [address] [place] [address] PCP - General Internal Medicine 04/06/24 documented as of this encounter
--- OUTSIDE RECORDS SUMMARY | 2025-01-30 14:11 | XMS_ITS | Clinical Summary ---
Author Organization [facility] Address [address] [place] [address] Phone Care Team Providers Care Willow Machine Tender Name Role Phone Krys Owens MD Primary Care Provider [phone] Allergies Active Allergy Reactions Criticality Noted Date Comments Codeine Nausea And Vomiting High 08/09/2013 VOMITING Medications nystatin (MYCOSTATIN) cream TAKE 1 APPLICATION (TOPICAL) 3 TIMES PER DAY FOR 14 DAYS 09/10/19 24 Active adalimumab-ada z (HYRIMOZ) 40 mg/0.4 mL pen Inject 40 mg into the skin every 14 days. Rheum Active nicotine (NICODERM CQ) 14 mg/[address] 1 patch on the skin. 01/20/20 24 Active predniSONE (DELTASONE) 20 mg tablet TAKE 1 TABLET BY MOUTH 1 TIME EACH DAY FOR 5 DAYS. Active allopurinoL (ZYLOPRIM) 100 mg tablet Take 1 tablet (100 mg total) by mouth 1 (one) time each day. 30 each 08/02/19 25 026 Active aspirin 81 mg EC tablet Take 1 tablet (81 mg total) by mouth 1 (one) time each day. 90 tablet 2 08/02/19 25 Active atorvastatin (LIPITOR) 80 mg tablet Take 1 tablet (80 mg total) by mouth 1 (one) time each day. 90 tablet 2 08/02/19 25 Active lisinopriL (PRINIVIL,ZEST RIL) 20 mg tablet Take 1 tablet (20 mg total) by mouth 1 (one) time each day. 90 tablet 2 08/02/19 25 Active metoprolol succinate (TOPROL-XL) 50 mg 24 hr tablet Take 1 tablet (50 mg total) by mouth 1 (one) time each day. Do not crush or chew. 90 tablet 2 08/02/19 25 Active nitroglycerin (NITROSTAT) 0.[address] 1 tablet (0.4 mg total) under the tongue every 5 (five) minutes if needed for chest pain. 90 tablet 08/02/19 25 Active cyanocobalamin (VITAMIN B-12) 1,000 mcg tablet TAKE 1 TABLET BY MOUTH EVERY DAY 90 tablet 01/25/20 25 Active cyanocobalamin (VITAMIN B-12) 1,000 mcg tablet TAKE 1 TABLET BY MOUTH ONCE DAILY 90 tablet 10/25/19 25 025 Discontinued Active Problems Problem Noted Date Diagnosed Date Tobacco use 03/07/2024 Ischemic heart disease 02/02/2020 Varicose veins of both lower extremities with pa in 09/13/2018 Seropositive rheumatoid arth ritis ([facility] V24, [facility] V28) 07/21/2018 Overview (03/03/2024): Onset ~2013 - palindromic pattern 10/08-12/08 - sulfasalazine tried - GI intolerance Jun 2018: methotrexate started. Stopped due to ineffectiveness, 2019 Essential hypertension 10/15/2016 Hyperlipidemia 10/15/2016 CAD (coronary artery disease) 03/19/2015 Overview (03/03/2024): H/o NSTEMI B12 deficiency 08/30/2014 Encounters Date Type Department Care Team Description 11/03/2024 Telephone Adult Medicine [address] [address] Yuliet Kenny [place] 11/01/2024 11:22 AM EDT - 11/01/2024 11:59 PM EDT Hospital Encounter [facility] CT Scan [address] [place] [address] Cigarette smoker; Encounter for screening for lung cancer Discharge Disposition: Home or Self Care from Last 3 Months Immunizations Name Administration Dates Next Due Moderna SARS-CoV-2 COVID-19, mRNA, LNP-S, preservative free 06/12/2021,08/09/2020,07/12/2020,2020 Td Tetanus diptheria (Tdvax) 7yo and older 11/30/2023 Surgical History Surgery Date Site/Laterality Comments HYSTERECTOMY 1994 PROCEDURE: HISTORICAL HYSTERECTOMY; COMMENT: ovaries intact, TVH BREAST BIOPSY 30S PROCEDURE: BX BREAST; PERC NEEDLE CORE W/IMAG GUID; COMMENT: LT. BREAST BX-BENIGN BREAST SURGERY PROCEDURE: KS UNLISTED PROCEDURE BREAST; COMMENT: REMOVED CYST LT. BREAST Medical History Medical History Date Comments CRP elevated DX:CRP elevated Frozen shoulder DX:Frozen should er Abnormal mammogram DX:Abnormal m ammogram CAD (coronary artery disease) DX :CAD (coronary artery disease) Pulmonary nodule DX:Pulmonary no dule Calcified granuloma of lung DX:C alcified granuloma of lung; COMMENT: LDCT Chronic kidney disease Gout Arthritis Rheumatoid arthritis ([facility] V24, [facility] V28) Hypertension Hyperlipidemia NSTEMI (non-ST elevated myoc ardial infarction) ([facility] V24, [facility] V28) 03/19/2015 Ischemic heart disease Family History Medical History Relation Name Comments Breast cancer Aunt M. AUNT.40S maternal Other: salivary gland cancer Father cad Breast cancer Maternal Grandmother 50S Arthritis Mother Coronary artery disease Mother Other cancer Mother's side 1 grandmother, unknown primary Lung cancer Mother's side 2 aunt Uterine cancer Other 1 M. [id number] ?cousin Breast cancer Other 2 M. [id number] Hypertension Sister Colon cancer Neg Hx Ovarian cancer Neg Hx Relation Name Status Comments Aunt M. AUNT.40S Alive Father Maternal Grandmother 50S Mother Mother's side 1 Mother's side 2 Other 1 M. [id number] Other 2 M. [id number] Other 3 M. [id number] Alive Sister Social History Tobacco Use Types Packs/Day Years Used Date Smoking Tobacco: Former Cigarettes Q uit: 10/16/2020 Smokeless Tobacco: Never Tobacco Cessation:Counseling Given: Not Answered Alcohol Use Standard Drinks/Week Comments Yes 0 [...] Sign Reading Time Taken Comments Blood Pressure 107/51 08/01/2024 3:34 PM EDT Pulse 73 08/01/2024 3:34 PM EDT Temperature 36.9 C (98.5 F) 08/01/2024 3:34 PM EDT Respiratory Rate 16 08/01/2024 3:34 PM EDT Oxygen Saturation 100% 04/14/2024 4:09 PM EST Inhaled Oxygen Concentration - - Weight 50.3 kg (111 lb) 08/01/2024 3:34 PM EDT Height 152.4 cm (5') 08/01/2024 3:34 PM EDT Body Mass Index 21.68 08/01/2024 3:34 PM EDT Plan of Treatment Health Maintenance Due Date Last Done Comments Zoster Vaccines (1 of 2) 1977 Pneumococcal Vaccine: 50+ Years (1 of 1 - PCV) 2008 Breast Cancer Screening 06/17/2017 06/17/2015 Osteoporosis Screening (Bone Density Screening) 04/26/2022 Social Influencers of Health Screening 04/26/2022 Depression Screening 05/24/2024 COVID-19 Vaccine ( season) 2025 06/12/2021, 08/09/2020, 07/12/2020, Additional history exists Influenza Vaccine (#1) 2025 Hypertension/CHF/CAD Annual BMP Blood Test 03/21/2025 03/21/2024, 11/30/2023, 11/30/2023 Falls Risk Assessment 04/14/2025 04/14/2024 Cholesterol Screening (Lipid Panel) 07/19/2025 07/19/2020 RSV Immunization Adult Patients (1 - 1-dose 75+ series) 2033 DTaP,Tdap,and [...] age to complete this topic Meningococcal B Vaccine Aged Out No l onger eligible based on patient's age to complete this topic RSV Immunization Patients Under 20 months Aged Out No longer eligible based on patient's age to complete this topic Varicella Vaccines Aged Out No longer eligible based on patient's age to complete this topic Medical Devices Implanted Type Area Break Off Worker Device Identifier Shelf Expiration Date Model / Serial / Lot Stents Stents N/A: Heart Procedures Procedure Name Priority Date/Time Associated Diagnosis Comments CT LUNG SCREENING Routine 11/01/2024 11: 32 AM EDT Cigarette smoker Encounter for screening for lung cancer COLONOSCOPY Routine 04/14/2024 3:48 PM EST Weight loss ANNUAL BMP BLOOD TEST Routine 11/30/2023 HEPATITIS C SCREENING Routine 08/07/2020 LIPID PANEL Routine 07/19/2020 from Last 3 Months or Most Recently Relevant to Health Maintenance Results * CT Lung Screening (11/01/2024 11:32 AM EDT) Anatomical Region Laterality Modality Chest Computed Tomogra phy 11/01/2024 4:11 PM EDT Impressions 11/01/2024 4:18 PM EDT Stable pulmonary nodules. Lung RADS 2. Guidelines recommend repeat low-dose screening CT in 12 months. -------- FINAL REPORT -------- Dictated By: Shashank Champagne Dictated Date: 11/01/2024 16:11 ET Assigned Physician: Shashank Champagne Reviewed and Electronically Signed By: Shashank Champagne Signed Date: 11/01/2024 16:18 ET Workstation ID: [id number] Transcribed By: Self Edit Transcribed Date: 11/01/2024 16:11 ET Narrative 11/01/2024 4:18 PM EDT PROCEDURE: Low-dose CT of the chest without intravenous contrast. TECHNIQUE: Low-dose CT of the chest without intravenous contrast administration. Coronal and sagittal reformats and MIP reconstructions were created. Dose length product: 109 mGy-cm. HISTORY: Lung cancer screening, >=20 pk yr current smoker (Age 50-80y) COMPARISON: 11/02/2023. FINDINGS: Lungs/pleura: The central airways are clear and normal in caliber. Scattered calcified granulomas. Stable juxtapleural 3 mm nodule in the anterior left upper lobe, series 3 image 79. Stable 3 mm nodule in the posterior right lower lobe, series 3 image 146. Stable 2 mm nodule in the lateral left lower lobe, series 3 image 168. Bandlike opacities suggesting scarring and/or atelectasis in the right middle lobe and lingula. No pleural effusion or pneumothorax. Mediastinum/marely: No mediastinal mass or lymphadenopathy. No appreciable hilar lymphadenopathy on limited noncontrast evaluation. Vasculature: Normal caliber pulmonary arteries. Multifocal atherosclerotic calcifications of the aorta and great vessels. Cardiac: Normal heart size. Severe coronary artery calcification. Chest wall: No axillary or supraclavicular lymphadenopathy. Limited abdomen: Unremarkable. Bones: Unremarkable. Procedure Note Shashank Champagne MD - 11/01/2024 PROCEDURE: Low-dose CT of the chest without intravenous contrast. TECHNIQUE: Low-dose CT of the chest without intravenous contrastadministration. Coronal and sagittal reformats and MIP reconstructionswere created. Dose length product: 109 mGy-cm. HISTORY: Lung cancer screening, >=20 pk yr current smoker (Age 50-80y) COMPARISON: 11/02/2023. FINDINGS: Lungs/pleura: The central airways are clear and normal in caliber.Scattered calcified granulomas. Stable juxtapleural 3 mm nodule in theanterior left upper lobe, series 3 image 79. Stable 3 mm nodule in theposterior right lower lobe, series 3 image 146. Stable 2 mm nodule in thelateral left lower lobe, series 3 image 168. Bandlike opacitiessuggesting scarring and/or atelectasis in the right middle lobe andlingula. No pleural effusion or pneumothorax. Mediastinum/marely: No mediastinal mass or lymphadenopathy. No appreciablehilar lymphadenopathy on limited noncontrast evaluation. Vasculature: Normal caliber pulmonary arteries. Multifocalatherosclerotic calcifications of the aorta and great vessels. Cardiac: Normal heart size. Severe coronary artery calcification. Chest wall: No axillary or supraclavicular lymphadenopathy. Limited abdomen: Unremarkable. Bones: Unremarkable. IMPRESSION: Stable pulmonary nodules. Lung RADS 2. Guidelines recommend repeatlow-dose screening CT in 12 months. -------- FINAL REPORT -------- Dictated By: Shashank Champagne Dictated Date: 11/01/2024 16:11 ET Assigned Physician: Shashank Champagne Reviewed and Electronically Signed By: Shashank Champagne Signed Date: 11/01/2024 16:18 ET Workstation ID: [id number] Transcribed By: Self Edit Transcribed Date: 11/01/2024 16:11 ET Kat Baldwin MD [facility] CT PROCEDURES Final Result * COLONOSCOPY Anesthesia - MAC; [facility] ENDOSCOPY (04/14/2024 3:48 PM EST) Anatomical Region Laterality Modality Endoscopy 04/14/2024 3:13 PM EST Impressions 04/14/2024 3:51 PM EST - Hemorrhoids found on perianal exam. - One 6 mm polyp in the ascending colon, removed with a cold snare. Resected and retrieved. - The entire examined colon is normal. Biopsied. - The examination was otherwise normal on direct and retroflexion views. Recommendation: - - Discharge patient to home. - High fiber diet. - Continue present medications. - Await pathology results. - Repeat colonoscopy for surveillance based on pathology results. - F/U with primary GI provider (as instructed prior to the booking of today's procedure) to discuss a fpc therapeutic plan. Narrative 04/14/2024 3:51 PM EST [facility] GI Patient Name: Ilan Das Procedure Date: 04/14/2024 3:13 PM Date of : 1960 Age: 64 Gender: Female Note Status: Finalized Attending MD: Gm Woods DO, [id number] Procedure Date No Time: 04/14/2024 Procedure: Colonoscopy Indications: Weight loss, Incidental change in bowel habits noted Providers: Gm Woods DO Referring MD: Krys Owens MD Medicines: Monitored Anesthesia Care Complications: No immediate complications. Estimated blood loss: Minimal. Estimated Blood Loss: Estimated blood loss was minimal. Procedure: Pre-Anesthesia Assessment: - - Prior to the procedure, a History and Physical was performed, and patient medications and allergies were reviewed. The patient is competent. The risks and benefits of the procedure and the sedation options and risks were discussed with the patient. All questions were answered and informed consent was obtained. Patient identification and proposed procedure were verified by the physician, the nurse, the anesthesiologist, the wood grinder and the tattoo technician in the pre-procedure area in the endoscopy suite. Mental Status Examination: alert and oriented. Airway Examination: normal oropharyngeal airway and neck mobility. Respiratory Examination: clear to auscultation. CV Examination: normal. Prophylactic Antibiotics: The patient does not require prophylactic antibiotics. Prior Anticoagulants: The patient has taken no anticoagulant or antiplatelet agents. ASA Grade Assessment: II - A patient with severe systemic disease. After reviewing the risks and benefits, the patient was deemed in satisfactory condition to undergo the procedure. The anesthesia plan was to use monitored anesthesia care (MAC). Immediately prior to administration of medications, the patient was re-assessed for adequacy to receive sedatives. The heart rate, respiratory rate, oxygen saturations, blood pressure, adequacy of pulmonary ventilation, and response to care were monitored throughout the procedure. The physical status of the patient was re-assessed after the procedure. After I obtained informed consent, the scope was passed under direct vision. Throughout the procedure, the patient's blood pressure, pulse, and oxygen saturations were monitored continuously. The Olympus Pediatric Colonoscope was introduced through the anus and advanced to the cecum, identified by appendiceal orifice and ileocecal valve. The colonoscopy was performed without difficulty. The patient tolerated the procedure well. The quality of the bowel preparation was good. Findings: Hemorrhoids were found on perianal exam. A 6 mm polyp was found in the ascending colon. The polyp was sessile. The polyp was removed with a cold snare. Resection and retrieval were complete. Estimated blood loss was minimal. The colon (entire examined portion) appeared normal. Biopsies were taken with a cold forceps for histology. Estimated blood loss was minimal. The exam was otherwise without abnormality on direct and retroflexion views. Procedure Code(s): --- Professional --- 18434, Colonoscopy, flexible; with removal of tumor(s), polyp(s), or other lesion(s) by snare technique 83108, 59, Colonoscopy, flexible; with biopsy, single or multiple Diagnosis Code(s): --- Professional --- R63.4, Abnormal weight loss D12.2, Benign neoplasm of ascending colon K64.9, Unspecified hemorrhoids CPT copyright 2020 [employer]. All rights reserved. The codes documented in this report are preliminary and upon infant babysitter review may be revised to meet current compliance requirements. GM Woods DO 04/14/2024 3:51:13 PM This report has been signed electronically.Gm Woods DO Number of Addenda: 0 Note Initiated On: 04/14/2024 3:13 PM Scope Withdrawal Time: 0 hours 7 minutes 59 seconds Scope In: 3:33:02 PM Scope Out: 3:47:22 PM Endoscopy Department at [facility] - [address] [place] [phone] Procedure Note Gm Woods DO - 04/14/2024 [facility] GI Patient Name: Ilan Das Procedure Date: 04/14/2024 3:13 PM Date of : 1960 Age: 64 Gender: Female Note Status: Finalized Attending MD: Gm Woods DO, [id number] Procedure Date No Time: 04/14/2024 Procedure: Colonoscopy [...] the physician, the nurse, the anesthesiologist, the wood grinder and thetechnician in the pre-procedure area in [...] retroflexion views. Procedure Code(s): --- Professional --- 76235, Colonoscopy, flexible; with removal of tumor(s), polyp(s), or other lesion(s) by snare technique 53609, 59, Colonoscopy, flexible; with biopsy,single or multiple Diagnosis Code(s): --- Professional --- R63.4, Abnormal weight loss D12.2, Benign neoplasm of ascending colon K64.9, Unspecified hemorrhoids CPT copyright 2020 [employer]. All rights reserved. The codes documented in this report are preliminary and upon infant babysitter reviewmay be revised to meet current compliance requirements. GM Woods DO 04/14/2024 3:51:13 PM This report has been signed electronically.Gm Woods DO Number of Addenda: 0 Note Initiated On: 04/14/2024 3:13 PM Scope Withdrawal Time: 0 hours 7 minutes 59 seconds Scope In: 3:33:02 PM Scope Out: 3:47:22 PM Endoscopy Department at [facility] - [address] [place] [phone] IMPRESSION: - Hemorrhoids found on perianal exam. [...] booking of today's procedure) to discuss a geochemist therapeutic plan. Result [facility] Gm Woods DO GI~PROCEDURE ORDERABLES Final Re sult * Annual BMP Blood Test (11/30/2023) [facility] Annual BMP Blood Test abstracted [facility] Provider HEALTH MAINTENANCE Final Result * Hepatitis C Screening (08/07/2020) [facility] Hepatitis C Screening abstracted [facility] Provider HEALTH MAINTENANCE Final Result * Lipid panel (07/19/2020) [facility] LDL/HDL Ratio 2 0 - 4 Triglycerides 95 0 - 150 mg/dL Cholesterol 132 0 - 200 mg/dL HDL 68 >=40 mg/dL LDL Cholesterol 45 0 - 100 mg/dL Blood Venous blood specimen / Unknown Result [facility] Provider LAB BLOOD ORDERABLES Jackie l Result from Last 3 Months or Most Recently Relevant to Health Maintenance Insurance [facility] MEDICARE Care Teams Willow Machine Tender Relationship Specialty Start Date End Date Krys Owens MD [address] [place] [address] PCP - General Internal Medicine 11/04/20
--- OUTSIDE RECORDS SUMMARY | 2025-01-30 14:11 | XMS_ITS | Encounter Summary ---
Author Organization [facility] Address [address] [place] [address] Phone Care Team Providers Care Rn Recruitment Name Role Phone Krys Owens MD Primary Care Provider [phone] Encounter Details Date Type Department Care Team (Late Contact Info) Description 08/01/2024 Documentation Only [facility] [address] [place] [address] Raquel Alvarado [address] [place] [address] Social History Tobacco Use Types [...] Visit [facility] [address] [place] [address] Wilbur Gamez MD [address] [place] [address] [place] [address] documented as of this encounter Visit Diagnoses Not on filedocumented in this encounter Care Teams Rn Recruitment Relationship Specialty Start Date End Date Krys Owens MD [address] [place] [address] PCP - General Internal Medicine 04/06/24 documented as of this encounter
--- OUTSIDE RECORDS SUMMARY | 2025-01-30 14:11 | XMS_ITS | Encounter Summary ---
Author Organization [facility] Address [address] [place] [address] Phone Care Team Providers Care Esthetician Permanent Makeup Artist Name Role Phone Krys Owens MD Primary Care Provider [phone] Encounter Details Date Type Department Care Team (Late Contact Info) Description 12/21/2023 Documentation Only [facility] [address] [place] [address] [place] [address] [place] [phone] Social History Tobacco Use Types Packs/Day Years [...] Visit [facility] [address] [place] [address] Wilbur Gamez MD [address] [place] [address] [place] [address] documented as of this encounter Visit Diagnoses Not on filedocumented in this encounter Care Teams Esthetician Permanent Makeup Artist Relationship Specialty Start Date End Date Krys Owens MD [address] [place] [id number] PCP - General Internal Medicine 04/06/24 documented as of this encounter
--- OUTSIDE RECORDS SUMMARY | 2025-01-30 14:11 | XMS_ITS | Encounter Summary ---
Author Organization [facility] Address [address] [place] [address] Phone Care Team Providers Care Cone Treater Name Role Phone Krys Owens MD Primary Care Provider [phone] Encounter Details Date Type Department Care Team (Late Contact Info) Description 12/29/2023 Documentation Only [facility] [address] [place] [address] Raquel Alvarado [address] [place] [phone] Social History Tobacco Use Types Packs/Day [...] Visit [facility] [address] [place] [address] Wilbur Gamez MD [address] [place] [address] [place] [address] documented as of this encounter Visit Diagnoses Not on filedocumented in this encounter Care Teams Cone Treater Relationship Specialty Start Date End Date Krys Owens MD [address] [place] [address] PCP - General Internal Medicine 04/06/24 documented as of this encounter
--- OUTSIDE RECORDS SUMMARY | 2025-01-30 14:11 | XMS_ITS | Encounter Summary ---
Author Organization [facility] Address [address] [place] [address] Phone Care Team Providers Care Compactor Driver Name Role Phone Krys Owens MD Primary Care Provider [phone] Encounter Details Date Type Department Care Team (Late Contact Info) Description 10/05/2024 Documentation Only [facility] [address] [place] [address] Raquel Alvarado [address] [place] [address] Social History Tobacco Use Types [...] Visit [facility] [address] [place] [address] Wilbur Gamez MD [address] [place] [address] [place] [address] documented as of this encounter Visit Diagnoses Not on filedocumented in this encounter Care Teams Compactor Driver Relationship Specialty Start Date End Date Krys Owens MD [address] [place] [address] PCP - General Internal Medicine 04/06/24 documented as of this encounter
--- OUTSIDE RECORDS SUMMARY | 2025-01-30 14:11 | XMS_ITS | Clinical Summary ---
Author Organization [facility] Address [address] [place] [address] Phone Care Team Providers Care Brassiere Cup Mold Cutter Name Role Phone Krys Owens MD Primary Care Provider [phone] Allergies Active Allergy Reactions Criticality Noted Date [...] day Do not crush or chew. Active allopurinol (ZYLOPRIM) 100 MG tablet Take 1 tablet (100 mg total) by mouth 1 (one) time each day 30 tablet 11 04/06/2024 5 Active lisinopril 10 MG tablet Take 1.5 tablets (15 mg total) by mouth 1 (one) time each day 135 tablet 3 12/06/2024 6 Active Active Problems Problem Noted Date Diagnosed Date Chronic kidney disease, stage 2 (mild) 4 Acute nontraumatic kidney injury, not otherwise specified Vitamin B12 deficiency Unintentional weight loss Hypertension Hyperlipidemia Essential hypertension Encounters Date Type Department Care Team Description 12/06/2024 Refill [facility] [place], [address] [place] [address] Raquel Alvarado 10/30/2024 Orders Only [facility] [address] [place] [address] [place] [address] Becky Henriquez from Last 3 Months Immunizations Immunization Administration Dates Next Due Moderna SARS-COV-2 06/12/2021,08/09/2020, [...] Visit [facility] [address] [place] [phone] Wilbur Gamez MD [address] [place] [address] [place] [phone] Health Maintenance Due Date Last Done Comments Breast Cancer Screening 1960 Pneumococcal Vaccine: 50+ Ye ars (1 of 2 - PCV) 1977 Colorectal Cancer Screening: Annual FOBT 2007 Colorectal Cancer Screening: Colonoscopy 2007 Colorectal Cancer Screening: Sigmoidoscopy 2007 Influenza Vaccine (#1) 2025 Hepatitis B Vaccine Aged Out No longe r eligible based on patient's age to complete this topic Insurance [employer] Care Teams Brassiere Cup Mold Cutter Relationship Specialty Start Date End Date Krys Owens MD [address] [place] [address] PCP - General Internal Medicine 04/06/24
--- OUTSIDE RECORDS SUMMARY | 2025-01-30 14:11 | XMS_ITS | Encounter Summary ---
Author Organization [facility] Address [address] [place] [address] Phone Care Team Providers Care Bottoming Room Inspector Name Role Phone Krys Owens MD Primary Care Provider [phone] Encounter Details Date Type Department Care Team (Late Contact Info) Description 04/07/2024 Documentation Only [facility] [address] [place] [address] Raquel Alvarado [address] [place] [phone] Social History Tobacco Use Types Packs/Day [...] Visit [facility] [address] [place] [address] Wilbur Gamez MD [address] [place] [address] [place] [address] documented as of this encounter Visit Diagnoses Not on filedocumented in this encounter Care Teams Bottoming Room Inspector Relationship Specialty Start Date End Date Krys Owens MD [address] [place] [address] PCP - General Internal Medicine 04/06/24 documented as of this encounter
--- OUTSIDE RECORDS SUMMARY | 2025-01-30 14:11 | XMS_ITS | Encounter Summary ---
Author Organization [facility] Address [address] [place] [address] Phone Care Team Providers Care Bearingizer Name Role Phone Krys Owens MD Primary Care Provider [phone] Encounter Details Date Type Department Care Team (Late Contact Info) Description 10/05/2024 Documentation Only [facility] [address] [place] [address] Raquel Alvarado [address] [place] [address] Social History Tobacco Use Types [...] Visit [facility] [address] [place] [address] Wilbur Gamez MD [address] [place] [address] [place] [address] documented as of this encounter Visit Diagnoses Not on filedocumented in this encounter Care Teams Bearingizer Relationship Specialty Start Date End Date Krys Owens MD [address] [place] [address] PCP - General Internal Medicine 04/06/24 documented as of this encounter
--- OUTSIDE RECORDS SUMMARY | 2025-01-30 14:11 | XMS_ITS | Encounter Summary ---
Author Organization [facility] Address [address] [place] [address] Phone Care Team Providers Care Nuclear Physics Professor Name Role Phone Krys Owens MD Primary Care Provider [phone] Encounter Details Date Type Department Care Team (Late Contact Info) Description 01/25/2024 Documentation Only [facility] [address] [place] [address] Raquel Alvarado [address] [place] [address] Social History Tobacco Use Types Packs/Day [...] Visit [facility] [address] [place] [address] Wilbur Gamez MD [address] [place] [address] [place] [address] documented as of this encounter Visit Diagnoses Not on filedocumented in this encounter Care Teams Nuclear Physics Professor Relationship Specialty Start Date End Date Krys Owens MD [address] [place] [address] PCP - General Internal Medicine 04/06/24 documented as of this encounter
--- OUTSIDE RECORDS SUMMARY | 2025-01-30 14:11 | XMS_ITS | Encounter Summary ---
Author Organization [facility] Address [address] [place] [address] Phone Care Team Providers Care Sports Health Club Membership Advisors Name Role Phone Krys Owens MD Primary Care Provider [phone] Encounter Details Date Type Department Care Team (Late Contact Info) Description 08/01/2024 Documentation Only [facility] [address] [place] [address] Raquel Alvarado [address] [place] [address] Social History Tobacco Use Types [...] Visit [facility] [address] [place] [address] Wilbur Gamez MD [address] [place] [address] [place] [address] documented as of this encounter Visit Diagnoses Not on filedocumented in this encounter Care Teams Sports Health Club Membership Advisors Relationship Specialty Start Date End Date Krys Owens MD [address] [place] [address] PCP - General Internal Medicine 04/06/24 documented as of this encounter
--- OUTSIDE RECORDS SUMMARY | 2025-01-30 14:12 | XMS_ITS | Encounter Summary ---
Author Organization [facility] Address [address] [place] [address] Phone Care Team Providers Care Green Energy Marketing Analyst Name Role Phone Krys Owens MD Primary Care Provider [phone] Encounter Details Date Type Department Care Team (Late Contact Info) Description 12/29/2023 Documentation Only [facility] [address] [place] [address] Raquel Alvarado [address] [place] [address] Social History Tobacco Use Types Packs/Day [...] Visit [facility] [address] [place] [place] [address] Wilbur Gamez MD [address] [place] [address] [place] [address] documented as of this encounter Visit Diagnoses Not on filedocumented in this encounter Care Teams Green Energy Marketing Analyst Relationship Specialty Start Date End Date Krys Owens MD [address] [place] [address] PCP - General Internal Medicine 04/06/24 documented as of this encounter
--- OUTSIDE RECORDS SUMMARY | 2025-01-30 14:12 | XMS_ITS | Encounter Summary ---
Author Organization [facility] Address [address] [place] [address] Phone Care Team Providers Care Director It Project Name Role Phone Krys Owens MD Primary Care Provider [phone] Encounter Details Date Type Department Care Team (Late Contact Info) Description 12/29/2023 Documentation Only [facility] [address] [place] [address] Raquel Alvarado [address] [place] [address] Social History Tobacco Use Types Packs/Day [...] Visit [facility] [address] [place] [address] Wilbur Gamez MD [address] [place] [address] [place] [address] documented as of this encounter Visit Diagnoses Not on filedocumented in this encounter Care Teams Director It Project Relationship Specialty Start Date End Date Krys Owens MD [address] [place] [address] PCP - General Internal Medicine 04/06/24 documented as of this encounter
== END 2025-01-30 12:37 | disposition home or self-care (01) ==
PROVIDERS: Visit Provider Physician Assistant Medical
DX: L55.9 Sunburn, unspecified (principal)

== ENCOUNTER 2025-02-19 13:01 | Outpatient (REF) | payer OTHER, SELFPAY ==
--- OUTSIDE RECORDS SUMMARY | 2025-02-19 18:52 | XMS_ITS | Encounter Summary ---
Author Organization [facility] Address [address] [place] [address] Care Team Providers Care Carpet Measurer Name Role Phone Krys Owens MD Primary Care Provider [phone] Encounter Details Date Type Department Care Team Description 11/05/2022 Composition Siding Worker Report Medical Records [address] [place] [address] Center, [facility] [address] [place] [address] Social History Tobacco Use Types Packs/Day Years [...] on filedocumented in this encounter Care Teams Carpet Measurer Relationship Specialty Start Date End Date Krys Owens MD [address] [place] [address] PCP - General Internal Medicine 11/04/20 documented as of this encounter
--- OUTSIDE RECORDS SUMMARY | 2025-02-19 18:52 | XMS_ITS | Encounter Summary ---
Author Organization [facility] Address [address] [place] [address] Care Team Providers Care Veterinary Technician Assistant Name Role Phone Otilia Herr DO Primary Care Pro vider Unavailable Krys Owens MD Primary Care Provider [phone] Encounter Details Date Type Department Care Team Description 09/15/2016 Hospital Medical Records [address] [place] [address] Gokul Wyatt Social History Tobacco Use Types Packs/Day Years [...] on filedocumented in this encounter Care Teams Veterinary Technician Assistant Relationship Specialty Start Date End Date Otilia Herr DO PCP - General Internal Medicine 08/09/13 11/03/20 Krys Owens MD [address] [place] [id number] PCP - General Internal Medicine 11/04/20 documented as of this encounter
--- OUTSIDE RECORDS SUMMARY | 2025-02-19 18:52 | XMS_ITS | Encounter Summary ---
Author Organization [facility] Address [address] [place] [address] Care Team Providers Care Stack Supervisor Name Role Phone Krys Owens MD Primary Care Provider [phone] Encounter Details Date Type Department Care Team Description 11/05/2022 Orders Only [facility] Medical [facility] Lung Screening Program [place] [address] [facility] [address] [place] [phone] Kat Baldwin MD [address] [facility] [address] [place], [place] [phone] History of tobacco abuse Social History Tobacco [...] health documented in this encounter Care Teams Stack Supervisor Relationship Specialty Start Date End Date Krys Owens MD [address] [place] [address] PCP - General Internal Medicine 11/04/20 documented as of this encounter
--- OUTSIDE RECORDS SUMMARY | 2025-02-19 18:52 | XMS_ITS | Encounter Summary ---
Author Organization [facility] Address [address] [place] [address] Care Team Providers Care Policy Value Calculator Name Role Phone Otilia Herr DO Primary Care Pro vider Unavailable Krys Owens MD Primary Care Provider [phone] Encounter Details Date Type Department Care Team Description 09/07/2016 Enterprise Sales Executive Report Medical Records [address] [place] [address] Gamaliel Ellsworth MD Social History Tobacco Use [...] on filedocumented in this encounter Care Teams Policy Value Calculator Relationship Specialty Start Date End Date Otilia Herr DO PCP - General Internal Medicine 08/09/13 11/03/20 Krys Owens MD [address] [place], [place] [phone] PCP - General Internal Medicine 11/04/20 documented as of this encounter
--- OUTSIDE RECORDS SUMMARY | 2025-02-19 18:52 | XMS_ITS | Encounter Summary ---
Author Organization [facility] Address [address] [place] [address] Care Team Providers Care Distribution Designer Name Role Phone Otilia Herr DO Primary Care Pro vider Unavailable Krys Owens MD Primary Care Provider [phone] Encounter Details Date Type Department Care Team Description 08/17/2017 Electric Power Line Examiner Report Medical Records [address] [place] [address] Curtis Renae MD Social History Tobacco Use Types Packs/Day [...] on filedocumented in this encounter Care Teams Distribution Designer Relationship Specialty Start Date End Date Otilia Herr DO PCP - General Internal Medicine 08/09/13 11/03/20 Krys Owens MD [address] [place] [id number] PCP - General Internal Medicine 11/04/20 documented as of this encounter
--- OUTSIDE RECORDS SUMMARY | 2025-02-19 18:52 | XMS_ITS | Encounter Summary ---
Author Organization [facility] Address [address] [place] [address] Care Team Providers Care Hospital Technician Name Role Phone Otilia Herr DO Primary Care Pro vider Unavailable Krys Owens MD Primary Care Provider Encounter Details Date Type Department Care Team Description 09/28/2017 Sponge Maker Report Medical Records [address] [place] [address] Saravanan Renae Jr., MD Social History Tobacco Use Types Packs/Day [...] on filedocumented in this encounter Care Teams Hospital Technician Relationship Specialty Start Date End Date Otilia Herr DO PCP - General Internal Medicine 08/09/13 11/03/20 Krys Owens MD [address] [place] [address] [id number] PCP - General Internal Medicine 11/04/20 documented as of this encounter
--- OUTSIDE RECORDS SUMMARY | 2025-02-19 18:52 | XMS_ITS | Encounter Summary ---
Author Organization [facility] Address [address] [place] [address] Care Team Providers Care Hop Grower Name Role Phone Otilia Herr DO Primary Care Pro vider Unavailable Krys Owens MD Primary Care Provider Encounter Details Date Type Department Care Team Description 07/08/2018 Antitank Assault Gunner Report Medical Records [address] [place] [address] Saravanan Renae Jr., MD Social History Tobacco [...] on filedocumented in this encounter Care Teams Hop Grower Relationship Specialty Start Date End Date Otilia Herr DO PCP - General Internal Medicine 08/09/13 11/03/20 Krys Owens MD [address] [place] [address] PCP - General Internal Medicine 11/04/20 documented as of this encounter
--- OUTSIDE RECORDS SUMMARY | 2025-02-19 18:52 | XMS_ITS | Encounter Summary ---
Author Organization [facility] Address [address] [place] [address] Care Team Providers Care Wire Mill Rover Name Role Phone Otilia Herr DO Primary Care Pro vider Unavailable Krys Owens MD Primary Care Provider [phone] Encounter Details Date Type Department Care Team Description 04/05/2017 Hospital Medical Records [address] [place] [address] Social History Tobacco Use Types Packs/Day Years [...] on filedocumented in this encounter Care Teams Wire Mill Rover Relationship Specialty Start Date End Date Otilia Herr DO PCP - General Internal Medicine 08/09/13 11/03/20 Krys Owens MD [address] [place] [address] PCP - General Internal Medicine 11/04/20 documented as of this encounter
--- OUTSIDE RECORDS SUMMARY | 2025-02-19 18:52 | XMS_ITS | Encounter Summary ---
Author Organization [facility] Address [address] [place] [address] Care Team Providers Care School Occupational Therapist Name Role Phone Krys Owens MD Primary Care Provider [phone] Reason for Visit * Reason Onset Date Comments Prior Authorization 11/15/2020 Humira Encounter Details Date Type Department Care Team Description 11/15/2020 Telephone Rheumatology - [address] [address] Dhruv Phillips MD Prior Authorization (Humira) Social History Tobacco Use Types Packs/Day Years [...] Telephone Encounter - Blanca Haynes L.P.N. - 11/26/2020 9:51 AM EDT Received approval for Humira on 11/20/2020 Called [facility] physician service site to confirm Humira approval Spoke with packaging sales representative at [facility] and confirmed approval for Humira through 11/20/2021 Message left for patient to return my call. Blanca Haynes L.P.N. ext [phone] * Telephone Encounter - Shyla Delcid - 11/26/2020 9:37 AM EDT Patient called states that the PA has been denied, and [facility] told her Dr. Phillips has to appeal the medication , please advise she would like a phone call back * Telephone Encounter - Blanca Haynes L.P.NAllan - 11/21/2020 9:23 AM EDT Roc approved from 10/21/2020 to 11/20/2021 PA # [id number] PA done through [facility]/ form had to be faxed ID# [id number] Approval dates to pharmacy Script already had been sent in September with refills Papers filed. Patient notified Provider notified -FYI * Telephone Encounter - Blanca Haynes L.P.NAllan - 11/19/2020 4:17 PM EDT Forms faxed to [facility] for Roc PA * Telephone Encounter - Blanca Haynes L.P.NAllan - 11/19/2020 2:42 PM EDT Spoke with [facility], they need additional questions reviewed and answered Patient's PA was to 11/21/2020 PA case number is [id number] Forms given to Dr Phillips for review * Telephone Encounter - Blanca Haynes L.P.NAllan - 11/19/2020 8:59 AM EDT Left message on patients addressed phone re medication is approved and dosing has not changed Asked pt to call me * Telephone Encounter - Dhruv Phillips MD - 11/19/2020 8:14 AM EDT Ilan, The fine print on the rejection note said that coverage for 40 mg Humira every 2 weeks daily continue. I do not know why the felt we were pushing for weekly dosing. Dr. Phillips * Telephone Encounter - Luis Antonio Garcia M.A. - 11/19/2020 8:11 AM EDT Case reviewed by Dr. Phillips. It seems that they have denied a request for a weekly dose although we were attempting to renew her PA for her usual biweekly dose. Coverage will continue with plan;s limitations of 2 syringes or pens per [address] Phillips did fill out paper form but we wont have to send it in. Per Dr. Phillips, we should call patient and confirm she has been able to get her Humira. * Telephone Encounter - Luis Antonio Garcia M.A. - 11/18/2020 2:42 PM EDT The request was denied for weird reason. According to [facility], Humira would be approved if patient has been stable on 40 mg weekly dose or increasing from 40 mg biweekly to 40 mg weekly. A paper form has been filled out and attached to denial for review. Appeal letter can be completed if preferred but patient would have to sign consent for us to process appeal. * Telephone Encounter - Blanca Haynes L.P.N. - 11/15/2020 11:45 AM EDT Prior authorization form filled out and forwarded to provider. Humira [facility] PA has been started by Dr Alan Glaser [id number] Ins ID #[id number] documented in this encounter Plan of Treatment Not on file documented as of this encounter Visit Diagnoses Not on filedocumented in this encounter Care Teams School Occupational Therapist Relationship Specialty Start Date End Date Krys Owens MD [address] [place] [id number] PCP - General Internal Medicine 11/04/20 documented as of this encounter
--- OUTSIDE RECORDS SUMMARY | 2025-02-19 18:52 | XMS_ITS | Encounter Summary ---
Author Organization [facility] Address [address] [place] [address] Care Team Providers Care Hydro Plant Technician Name Role Phone Otilia Herr DO Primary Care Pro vider Unavailable Krys Owens MD Primary Care Provider [phone] Encounter Details Date Type Department Care Team Description 03/07/2015 Hospital Medical Records [address] [place] [address] Social History Tobacco Use Types Packs/Day Years [...] on filedocumented in this encounter Care Teams Hydro Plant Technician Relationship Specialty Start Date End Date Otilia Herr DO PCP - General Internal Medicine 08/09/13 11/03/20 Krys Owens MD [address] [place] [address] PCP - General Internal Medicine 11/04/20 documented as of this encounter
--- OUTSIDE RECORDS SUMMARY | 2025-02-19 18:52 | XMS_ITS | Encounter Summary ---
Author Organization [facility] Address [address] [place] [address] Care Team Providers Care Livestock Farmer Name Role Phone Otilia Herr DO Primary Care Pro vider Unavailable Krys Owens MD Primary Care Provider [phone] Reason for Visit * Reason Onset Date Comments Prior Authorization 08/26/2020 Encounter Details Date Type Department Care Team Description 08/26/2020 Telephone Rheumatology - [address] [address] Dhruv Phillips MD Prior Authorization Social History [...] Garcia M.A. - 08/26/2020 10:14 AM EDT CaseId:[id number] Coverage Start Date:07/27/2020 Coverage End Date:11/24/2020 No papers to file as approval information was obtained directly from CoverMeds. Patient will needto be notified once script is sent to [facility]. * Telephone Encounter - Luis Antonio Garcia M.A. - 08/26/2020 9:06 AM EDT PA needed for Humira pen. PA goes to [facility], ID# [id number]. [facility]. PA submitted through CoverMyMeds. [place]: [id number] * Telephone Encounter - Adriano Saucedo - 08/26/2020 8:42 AM EDT Patient called regarding Adalimumab (HUMIRA PEN) 40 MG/0.4ML Pen-injector Kit, stating she still didn't get it since 08/05/2020 (TETO). Rx was send to [facility], but hey don't carry that medication. Rx needsto be send to [facility]. Rheumatology office needs to call [phone] Patient can be called [phone] ext [phone] documented in this encounter Plan of Treatment Not on file documented as of this encounter Visit Diagnoses Diagnosis Seropositive rheumatoid arthritis (HCC) Rheumatoid arthritis documented in this encounter Care Teams Livestock Farmer Relationship Specialty Start Date End Date Otilia Herr DO PCP - General Internal Medicine 08/09/13 11/03/20 Krys Owens MD [address] [place] [address] PCP - General Internal Medicine 11/04/20 documented as of this encounter
--- OUTSIDE RECORDS SUMMARY | 2025-02-19 18:52 | XMS_ITS | Encounter Summary ---
Author Organization [facility] Address [address] [place] [address] Care Team Providers Care Pv Design And Installation Technician Name Role Phone Otilia Herr DO Primary Care Pro vider Unavailable Krys Owens MD Primary Care Provider [phone] Encounter Details Date Type Department Care Team Description 10/16/2020 Hospital Medical Records [address] [place] [address] Social History Tobacco Use Types Packs/Day Years [...] on filedocumented in this encounter Care Teams Pv Design And Installation Technician Relationship Specialty Start Date End Date Otilia Herr DO PCP - General Internal Medicine 08/09/13 11/03/20 Krys Owens MD [address] [place] [address] PCP - General Internal Medicine 11/04/20 documented as of this encounter
--- OUTSIDE RECORDS SUMMARY | 2025-02-19 18:52 | XMS_ITS | Encounter Summary ---
Author Organization [facility] Address [address] [place] [address] Care Team Providers Care Stem Processing Machine Operator Name Role Phone Otilia Herr DO Primary Care Pro vider Unavailable Krys Owens MD Primary Care Provider [phone] Reason for Visit * Reason Onset Date Comments Hand Pain 08/28/2020 Encounter Details Date Type Department Care Team Description 08/28/2020 Telephone Rheumatology - [address] [address] Dhruv Phillips MD Hand Pain Social History Tobacco Use Types Packs/Day [...] Telephone Encounter - Blanca Haynes L.P.N. - 08/28/2020 10:37 AM EDT Message left for patient to return my call. Blanca Haynes L.P.N. ext [phone] To call back only if needed * Telephone Encounter - Dhruv Phillips MD - 08/28/2020 10:21 AM EDT OKjulia * Telephone Encounter - Blanca LovelaceP.N. - 08/28/2020 10:14 AM EDT Patient calls c/o hand pain with stiffness, unable to open hands in the AM, 3rd digit on left hand gets stuck Prednisone dose now is 5 mg 1 BID Has not received Humira as of yet appt given for tomorrow with Dr Phillips per patients request Message to Dr Phillips documented in this encounter Plan of Treatment Not on file documented as of this encounter Visit Diagnoses Not on filedocumented in this encounter Care Teams Stem Processing Machine Operator Relationship Specialty Start Date End Date Otilia Herr DO PCP - General Internal Medicine 08/09/13 11/03/20 Krys Owens MD [address] [place] [address] PCP - General Internal Medicine 11/04/20 documented as of this encounter
--- OUTSIDE RECORDS SUMMARY | 2025-02-19 18:52 | XMS_ITS | Encounter Summary ---
Author Organization [facility] Address [address] [place] [address] Care Team Providers Care Seamer Name Role Phone Otilia Herr DO Primary Care Pro vider Unavailable Krys Owens MD Primary Care Provider [phone] Encounter Details Date Type Department Care Team Description 06/05/2015 Orders Only Adult Medicine [address] [address] Otilia Herr DO Abnormal mammogram (Primary Dx) [...] unspecified documented in this encounter Care Teams Seamer Relationship Specialty Start Date End Date Otilia Herr DO PCP - General Internal Medicine 08/09/13 11/03/20 Krys Owens MD [address] [place] [address] PCP - General Internal Medicine 11/04/20 documented as of this encounter
--- OUTSIDE RECORDS SUMMARY | 2025-02-19 18:52 | XMS_ITS | Encounter Summary ---
Author Organization [facility] Address [address] [place] [address] Care Team Providers Care Take Down Sorter Name Role Phone Krys Owens MD Primary Care Provider [phone] Reason for Visit * Reason Onset Date Comments Testing 02/26/2021 Encounter Details Date Type Department Care Team Description 02/26/[address] Scan - [place] [address] [place], [place] [phone] Krys Owens MD [address] [place], [place] [phone] Testing Social History Tobacco Use Types Packs/Day [...] on filedocumented in this encounter Care Teams Take Down Sorter Relationship Specialty Start Date End Date Krys Owens MD [address] [place] [address] PCP - General Internal Medicine 11/04/20 documented as of this encounter
--- OUTSIDE RECORDS SUMMARY | 2025-02-19 18:52 | XMS_ITS | Encounter Summary ---
Author Organization [facility] Address [address] [place] [address] Care Team Providers Care Supervising Editor Trailer Name Role Phone Otilia Herr DO Primary Care Pro vider Unavailable Krys Owens MD Primary Care Provider [phone] Reason for Visit * Reason Onset Date Comments Appointment-Internal Referral 06/05/2016 quintanilla Encounter Details Date Type Department Care Team Description 06/05/2016 Telephone Dermatology - [address] [phone] Jeanne Patricia PA-C Appointment-Internal Referral (derm) Social History Tobacco Use Types Packs/Day Years [...] encounter Miscellaneous Notes * Telephone Encounter - Grazyna Jerome - 06/05/2016 10:40 AM EST All attempts have been exhausted to reach patient for consult to dermatology. documented in this encounter Plan of Treatment Not on file documented as of this encounter Visit Diagnoses Not on filedocumented in this encounter Care Teams Supervising Editor Trailer Relationship Specialty Start Date End Date [place] Colasacco, Otilia, DO PCP - General Internal Medicine 08/09/13 11/03/20 Krys Owens MD [address] [place] [address] PCP - General Internal Medicine 11/04/20 documented as of this encounter
--- OUTSIDE RECORDS SUMMARY | 2025-02-19 18:52 | XMS_ITS | Encounter Summary ---
Author Organization [facility] Address [address] [place] [address] Care Team Providers Care Senior Clinical Data Coordinator Name Role Phone Otilia Herr DO Primary Care Pro vider Unavailable Krys Owens MD Primary Care Provider [phone] Reason for Visit * Reason Onset Date Comments Faxed Order 03/27/2016 Encounter Details Date Type Department Care Team Description 03/27/2016 Telephone Adult Medicine [address] [address] Otilia Herr DO Faxed Order Social History [...] 03/27/2016 8:36 AM EDT Faxed order from [facility]/diagnostic mammogram/sent to Dr Garcia for signing documented in this encounter Plan of Treatment Not on file documented as of this encounter Visit Diagnoses Not on filedocumented in this encounter Care Teams Senior Clinical Data Coordinator Relationship Specialty Start Date End Date Otilia Herr DO PCP - General Internal Medicine 08/09/13 11/03/20 Krys Owens MD [address] [place] [address] PCP - General Internal Medicine 11/04/20 documented as of this encounter
--- OUTSIDE RECORDS SUMMARY | 2025-02-19 18:52 | XMS_ITS | Encounter Summary ---
Author Organization [facility] Address [address] [place] [address] Care Team Providers Care Lever Miller Name Role Phone Otilia Herr DO Primary Care Pro vider Unavailable Krys Owens MD Primary Care Provider [phone] Encounter Details Date Type Department Care Team Description 10/24/2018 Telephone Adult Medicine [address] [address] Otilia Herr DO Social History Tobacco Use [...] - 10/24/2018 4:22 PM EDT Mackenzie from [facility] patient's insurance requires a letter of medical necessity for a leftthumb spica splint. Would like this faxed to [phone]. Would like this done by noon tomorrow. documented in this encounter Plan of Treatment Not on file documented as of this encounter Visit Diagnoses Not on filedocumented in this encounter Care Teams Lever Miller Relationship Specialty Start Date End Date Otilia Herr DO PCP - General Internal Medicine 08/09/13 11/03/20 Krys Owens MD [address] [place] [address] PCP - General Internal Medicine 11/04/20 documented as of this encounter
--- OUTSIDE RECORDS SUMMARY | 2025-02-19 18:52 | XMS_ITS | Encounter Summary ---
Author Organization [facility] Address [address] [place] [address] Care Team Providers Care Car Supplier Name Role Phone Otilia Herr DO Primary Care Pro vider Unavailable Krys Owens MD Primary Care Provider [phone] Encounter Details Date Type Department Care Team Description 07/19/2014 Field Hauler Report Medical Records [address] [place] [address] Pravin Doe MD Social History Tobacco Use Types Packs/Day [...] on filedocumented in this encounter Care Teams Car Supplier Relationship Specialty Start Date End Date Otilia Herr DO PCP - General Internal Medicine 08/09/13 11/03/20 Krys Owens MD [address] [place] [phone] PCP - General Internal Medicine 11/04/20 documented as of this encounter
--- OUTSIDE RECORDS SUMMARY | 2025-02-19 18:52 | XMS_ITS | Encounter Summary ---
Author Organization [facility] Address [address] [place] [address] Care Team Providers Care Auto Finance Sales Rep Name Role Phone Otilia Herr DO Primary Care Pro vider Unavailable Krys Owens MD Primary Care Provider [phone] Encounter Details Date Type Department Care Team Description 04/25/2018 Informatics Nurse Report Medical Records [address] [place] [address] Shakila Piper PA-C [address] [phone] Social History Tobacco Use Types Packs/Day Years [...] on filedocumented in this encounter Care Teams Auto Finance Sales Rep Relationship Specialty Start Date End Date Otilia Herr DO PCP - General Internal Medicine 08/09/13 11/03/20 Krys Owens MD [address] [place] [address] PCP - General Internal Medicine 11/04/20 documented as of this encounter
--- OUTSIDE RECORDS SUMMARY | 2025-02-19 18:52 | XMS_ITS | Encounter Summary ---
Author Organization [facility] Address [address] [place] [address] Care Team Providers Care Hat Copyist Name Role Phone Otilia Herr DO Primary Care Pro vider Unavailable Krys Owens MD Primary Care Provider [phone] Encounter Details Date Type Department Care Team Description 03/04/2015 Hospital Medical Records [address] [place] [address] Deo May Social History Tobacco Use Types [...] filedocumented in this encounter Care Teams Hat Copyist Relationship Specialty Start Date End Date Otilia Herr DO PCP - General Internal Medicine 08/09/13 11/03/20 Krys Owens MD [address] [place] [phone] PCP - General Internal Medicine 11/04/20 documented as of this encounter
--- OUTSIDE RECORDS SUMMARY | 2025-02-19 18:52 | XMS_ITS | Clinical Summary ---
Author Organization [facility] Address [address] [place] [address] Phone Care Team Providers Care Prosecuting Attorney Name Role Phone Krys Owens MD Primary Care Provider [phone] Allergies Active Allergy Reactions Criticality Noted Date [...] pa in 09/13/2018 Seropositive rheumatoid arth ritis ([facility] V24, 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 Stopped due to ineffectiveness2019 Essential hypertension 10/15/2016 Hyperlipidemia 10/15/2016 CAD (coronary artery disease) 03/19/2015 Overview (03/03/2024): H/o NSTEMI B12 deficiency 08/30/2014 Immunizations Immunization Administration Dates Next Due Moderna SARS-CoV-2 COVID-19, [...] Chronic kidney disease Gout Arthritis Rheumatoid arthritis ([facility] C V24, [facility] V28) Hypertension Hyperlipidemia NSTEMI (non-ST elevated myoc ardial infarction) ([facility] V24, [facility] V28) 03/19/2015 Ischemic heart disease Family History Medical History Relation Name Comments Breast cancer Aunt M. AUNT.40S maternal Other: salivary gland cancer Father cad Breast cancer Maternal Grandmother 50S Arthritis Mother Coronary artery disease Mother Other cancer Mother's side 1 grandmother, unknown primary Lung cancer Mother's side 2 aunt Uterine cancer Other 1 M. [id number] ?cousin Breast cancer Other 2 M. [id number] Hypertension Sister Colon cancer Neg Hx Ovarian cancer Neg Hx Relation Name Status Comments Aunt M. AUNT.40S Alive Father Maternal Grandmother 50S Mother Mother's side 1 Mother's side 2 Other 1 M. [id number] Other 2 M. [id number] Other 3 M. [id number] Alive Sister Social History Tobacco Use Types Packs/Day Years Used Date Smoking Tobacco: Former Cigarettes Q uit: 10/16/2020 Smokeless Tobacco: Never Tobacco Cessation:Counseling Given: Not Answered Alcohol Use Standard Drinks/Week Comments Yes 0 (1 standard drink = 0.6 oz pur e alcohol) Interpersonal Safety Answer Date Record ed Physical Abuse Unrecognized value 04/14/2024 Verbal Abuse Unrecognized value 04/14/2024 Comments No Sex and Gender Information [...] this topic Medical Devices Implanted Type Area Order Management Specialist Device Identifier Shelf Expiration Date Model / Serial / Lot Stents Stents N/A: Heart Procedures Procedure Name Priority Date/Time Associated Diagnosis Comments COLONOSCOPY Routine 04/14/2024 3:48 PM EST Weight loss ANNUAL BMP BLOOD TEST Routine 11/30/2023 HEPATITIS C SCREENING Routine 08/07/2020 LIPID PANEL Routine 07/19/2020 from Last 3 Months or Most Recently Relevant to Health Maintenance Results * COLONOSCOPY Anesthesia - MAC; [facility] ENDOSCOPY (04/14/2024 3:48 PM EST) Anatomical [...] booking of today's procedure) to discuss a half-way therapeutic plan. Narrative 04/14/2024 3:51 PM EST [facility] GI Patient Name: Ilan Das Procedure Date: 04/14/2024 3:13 PM Date of : 1960 Age: 64 Gender: Female Note Status: Finalized Attending MD: Gm Woods DO, [id number] Procedure Date No Time: 04/14/2024 Procedure: Colonoscopy [...] the physician, the nurse, the anesthesiologist, the carousel attendant and the transmission technician in the pre-procedure area in the [...] retroflexion views. Procedure Code(s): --- Professional --- 49973, Colonoscopy, flexible; with removal of tumor(s), polyp(s), or other lesion(s) by snare technique 81062, 59, Colonoscopy, flexible; with biopsy, single or multiple Diagnosis Code(s): --- Professional --- R63.4, Abnormal weight loss D12.2, Benign neoplasm of ascending colon K64.9, Unspecified hemorrhoids CPT copyright 2020 [employer]. All rights reserved. The codes documented in this report are preliminary and upon lamination technician review may be revised to meet current compliance requirements. GM Woods DO 04/14/2024 3:51:13 PM This report has been signed electronically.Gm Woods DO Number of Addenda: 0 Note Initiated On: 04/14/2024 3:13 PM Scope Withdrawal Time: 0 hours 7 minutes 59 seconds Scope In: 3:33:02 PM Scope Out: 3:47:22 PM Endoscopy Department at [facility] - [address] [place] [phone] Procedure Note Gm Woods DO - 04/14/2024 [facility] GI Patient Name: Ilna Das Procedure Date: 04/14/2024 3:13 PM Date of : 1960 Age: 64 Gender: Female Note Status: Finalized Attending MD: Gm Woods DO, [id number] Procedure Date No Time: 04/14/2024 Procedure: Colonoscopy [...] the physician, the nurse, the anesthesiologist, the carousel attendant and thetechnician in the pre-procedure area in [...] retroflexion views. Procedure Code(s): --- Professional --- 92892, Colonoscopy, flexible; with removal of tumor(s), polyp(s), or other lesion(s) by snare technique 95733, 59, Colonoscopy, flexible; with biopsy,single or multiple Diagnosis Code(s): --- Professional --- R63.4, Abnormal weight loss D12.2, Benign neoplasm of ascending colon K64.9, Unspecified hemorrhoids CPT copyright 2020 [employer]. All rights reserved. The codes documented in this report are preliminary and upon lamination technician reviewmay be revised to meet current compliance requirements. GM Woods DO 04/14/2024 3:51:13 PM This report has been signed electronically.Gm Woods DO Number of Addenda: 0 Note Initiated On: 04/14/2024 3:13 PM Scope Withdrawal Time: 0 hours 7 minutes 59 seconds Scope In: 3:33:02 PM Scope Out: 3:47:22 PM Endoscopy Department at [facility] - [address] [place] [phone] IMPRESSION: - Hemorrhoids found on perianal exam. [...] booking of today's procedure) to discuss a meterman therapeutic plan. Result [facility] Gm Woods DO GI~PROCEDURE ORDERABLES Final Re sult * Annual BMP Blood Test (11/30/2023) Pathologist [facility] Annual BMP Blood Test abstracted Result [facility] Provider HEALTH MAINTENANCE Final Result * Hepatitis C Screening (08/07/2020) [facility] Hepatitis C Screening abstracted Result [facility] Provider HEALTH MAINTENANCE Final Result * Lipid panel (07/19/2020) [facility] LDL/HDL Ratio 2 0 - 4 Triglycerides 95 0 - 150 mg/dL Cholesterol 132 0 - 200 mg/dL HDL 68 >=40 mg/dL LDL Cholesterol 45 0 - 100 mg/dL Blood Venous blood specimen / Unknown Result [facility] Historical Provider LAB BLOOD ORDERABLES Jackie l Result from Last 3 Months or Most Recently Relevant to Health Maintenance Insurance [facility] MEDICARE Care Teams Prosecuting Attorney Relationship Specialty Start Date End Date Krys Owens MD [address] [place] [address] PCP - General Internal Medicine 11/04/20
--- OUTSIDE RECORDS SUMMARY | 2025-02-19 18:52 | XMS_ITS | Encounter Summary ---
Author Organization [facility] Address [address] [place] [address] Care Team Providers Care Controlled Area Checker Name Role Phone Otilia Herr DO Primary Care Pro vider Unavailable Krys Owens MD Primary Care Provider [phone] Encounter Details Date Type Department Care Team Description 08/05/2015 Banquet Server Report Medical Records [address] [place] [address] Gamaliel Ellsworth MD Social History Tobacco Use [...] on filedocumented in this encounter Care Teams Controlled Area Checker Relationship Specialty Start Date End Date Otilia Herr DO PCP - General Internal Medicine 08/09/13 11/03/20 Krys Owens MD [address] [place], [place] [phone] PCP - General Internal Medicine 11/04/20 documented as of this encounter
--- OUTSIDE RECORDS SUMMARY | 2025-02-19 18:52 | XMS_ITS | Encounter Summary ---
Author Organization [facility] Address [address] [place] [address] Care Team Providers Care Wringer Machine Operator Name Role Phone Krys Owens MD Primary Care Provider [phone] Encounter Details Date Type Department Care Team Description 04/23/2022 Telephone Gastroenterology - [address] [place] [address] Juliet Ann MD [address] [place] [phone] Social History Tobacco Use Types Packs/Day Years [...] EST Please call patient and advise gastroenterology [phone]) has been attempting to contact her to [...] on filedocumented in this encounter Care Teams Wringer Machine Operator Relationship Specialty Start Date End Date Krys Owens MD [address] [place] [address] PCP - General Internal Medicine 11/04/20 documented as of this encounter
--- OUTSIDE RECORDS SUMMARY | 2025-02-19 18:52 | XMS_ITS | Encounter Summary ---
Author [facility] Address [address] [place] [address] Care Team Providers Care Neurocritical Care Physician Name Role Phone Otilia Herr DO Primary Care Pro vider Unavailable Krys Owens MD Primary Care Provider [phone] Encounter Details Date Type Department Care Team Description 08/26/2017 Release of Information Medical Records [address] [place] [id number] Abstract, Provider Social History Tobacco Use Types [...] on filedocumented in this encounter Care Teams Neurocritical Care Physician Relationship Specialty Start Date End Date Otilia Herr DO PCP - General Internal Medicine 08/09/13 11/03/20 Krys Owens MD [address] [place] [address] PCP - General Internal Medicine 11/04/20 documented as of this encounter
--- OUTSIDE RECORDS SUMMARY | 2025-02-19 18:52 | XMS_ITS | Encounter Summary ---
Author Organization [facility] Address [address] [place] [address] Care Team Providers Care Final Assembler Boat Name Role Phone Krys Owens MD Primary Care Provider [phone] Encounter Details Date Type Department Care Team Description 10/29/2021 Housing Director Report Medical Records [address] [place] [address] [facility] Social History Tobacco Use Types Packs/Day [...] on filedocumented in this encounter Care Teams Final Assembler Boat Relationship Specialty Start Date End Date Krys Owens MD [address] [place] [address] PCP - General Internal Medicine 11/04/20 documented as of this encounter
--- OUTSIDE RECORDS SUMMARY | 2025-02-19 18:52 | XMS_ITS | Encounter Summary ---
Author Organization [facility] Address [address] [place] [address] Care Team Providers Care Door Closer Name Role Phone Otilia Herr DO Primary Care Pro vider Unavailable Krys Owens MD Primary Care Provider [phone] Reason for Visit * Reason Onset Date Comments Medication 03/02/2018 Encounter Details Date Type Department Care Team Description 03/02/2018 Telephone Adult Medicine [address] [address] Otilia Herr DO Medication Social History Tobacco Use Types Packs/Day Years [...] encounter Miscellaneous Notes * Telephone Encounter - Soledad Singleton M.A. - 03/04/2018 3:59 PM EDT Appt booked for Wednesday with Jeanne * Telephone Encounter - Jeanne Patricia PA-C - 03/03/2018 4:18 PM EDT Pt needs ov * Telephone Encounter - Ele Bowles M.A. - 03/02/2018 4:55 PM EDT Last office visit 07/13/17 Does pt need to be seen to discuss before starting something else? * Telephone Encounter - Ashley Kaminski - 03/02/2018 3:50 PM EDT Caller requesting call back from provider: Is the caller the patient? YES If caller is not the patient, what is the callers name? N/A Callers relationship to patient? N/A If person calling is not the patient themselves, is there a verbal release in FYI or permanent comments for this person: NO Reason for call back: Patient was put on a patch to stop smoking and used it and has recently started smoking again, patient would like to try something else. Caller offered to speak with the nurse for assistance: YES Response: Patient offered to speak with nurse for assistance and patient agreed. Message forwarded to nurse. documented in this encounter Plan of Treatment Not on file documented as of this encounter Visit Diagnoses Not on filedocumented in this encounter Care Teams Door Closer Relationship Specialty Start Date End Date Otilia Herr DO PCP - General Internal Medicine 08/09/13 11/03/20 Krys Owens MD [address] [place] [address] PCP - General Internal Medicine 11/04/20 documented as of this encounter
--- OUTSIDE RECORDS SUMMARY | 2025-02-19 18:53 | XMS_ITS | Encounter Summary ---
Author Organization [facility] Address [address] [place] [address] Phone Care Team Providers Care Coding And Reimbursement Specialist Name Role Phone Krys Owens MD Primary Care Provider [phone] Encounter Details Date Type Department Care Team (Late Contact Info) Description 05/03/2024 Documentation Only [facility] [address] [place] [address] [place] [address] [place] [phone] Social History Tobacco Use Types Packs/Day [...] [facility] [address] [place] [address] Wilbur Gamez MD [address] [place] [address] [place] [address] documented as of this encounter Visit Diagnoses Not on filedocumented in this encounter Care Teams Coding And Reimbursement Specialist Relationship Specialty Start Date End Date Krys Owens MD [address] [place] [address] PCP - General Internal Medicine 04/06/24 documented as of this encounter
--- OUTSIDE RECORDS SUMMARY | 2025-02-19 18:53 | XMS_ITS | Encounter Summary ---
Author Organization [facility] Address [address] [place] [address] Phone Care Team Providers Care Call Worker Name Role Phone Krys Owens MD Primary Care Provider [phone] Encounter Details Date Type Department Care Team (Late Contact Info) Description 08/01/2024 Documentation Only [facility] [address] [place] [address] Raquel Alvarado [address] [place] [address] Social History Tobacco Use Types [...] [facility] [address] [place] [address] Wilbur Gamez MD [address] [place] [address] [place] [address] documented as of this encounter Visit Diagnoses Not on filedocumented in this encounter Care Teams Call Worker Relationship Specialty Start Date End Date Krys Owens MD [address] [place] [address] PCP - General Internal Medicine 04/06/24 documented as of this encounter
--- OUTSIDE RECORDS SUMMARY | 2025-02-19 18:53 | XMS_ITS | Encounter Summary ---
Author Organization [facility] Address [address] [place] [address] Phone Care Team Providers Care Rubber Moulding Machine Operator Name Role Phone Krys Owens MD Primary Care Provider [phone] Encounter Details Date Type Department Care Team (Late Contact Info) Description 12/29/2023 Documentation Only [facility] [address] [place] [address] Raquel Alvarado [address] [place] [phone] Social History Tobacco Use Types Packs/Day [...] Visit [facility] [address] [place] [address] Wilbur Gamez MD [address] [place] [address] [place] [address] documented as of this encounter Visit Diagnoses Not on filedocumented in this encounter Care Teams Rubber Moulding Machine Operator Relationship Specialty Start Date End Date Krys Owens MD [address] [place] [address] PCP - General Internal Medicine 04/06/24 documented as of this encounter
--- OUTSIDE RECORDS SUMMARY | 2025-02-19 18:53 | XMS_ITS | Encounter Summary ---
Author Organization [facility] Address [address] [place] [address] Phone Care Team Providers Care Podopediatrician Name Role Phone Krys Owens MD Primary Care Provider [phone] Encounter Details Date Type Department Care Team (Late Contact Info) Description 04/07/2024 Documentation Only [facility] [address] [place] [address] Raquel Alvarado [address] [place] [phone] Social History Tobacco Use Types Packs/Day [...] Department Care Team (Late Contact Info) Description 05/07/2025 3:30 PM EST Office Visit [facility] [address] [place] [address] Wilbur Gamez MD [address] [place] [address] [place] [address] documented as of this encounter Visit Diagnoses Not on filedocumented in this encounter Care Teams Podopediatrician Relationship Specialty Start Date End Date Krys Owens MD [address] [place] [address] PCP - General Internal Medicine 04/06/24 documented as of this encounter
--- OUTSIDE RECORDS SUMMARY | 2025-02-19 18:53 | XMS_ITS | Encounter Summary ---
Author Organization [facility] Address [address] [place] [address] Phone Care Team Providers Care Securities Supervisor Name Role Phone Krys Owens MD Primary Care Provider [phone] Encounter Details Date Type Department Care Team (Late Contact Info) Description 12/29/2023 Documentation Only [facility] [address] [place] [address] Raquel Alvarado [address] [place] [phone] Social History Tobacco Use Types Packs/Day [...] Visit [facility] [address] [place] [address] Wilbur Gamez MD [address] [place] [address] [place] [address] documented as of this encounter Visit Diagnoses Not on filedocumented in this encounter Care Teams Securities Supervisor Relationship Specialty Start Date End Date Krys Owens MD [address] [place] [address] PCP - General Internal Medicine 04/06/24 documented as of this encounter
--- OUTSIDE RECORDS SUMMARY | 2025-02-19 18:53 | XMS_ITS | Encounter Summary ---
Author Organization [facility] Address [address] [place] [address] Phone Care Team Providers Care Soda Dry House Operator Name Role Phone Krys Owens MD Primary Care Provider [phone] Encounter Details Date Type Department Care Team (Late Contact Info) Description 08/01/2024 Documentation Only [facility] [address] [place] [address] Raquel Alvarado [address] [place] [address] Social History Tobacco Use Types [...] Visit [facility] [address] [place] [address] Wilbur Gamez MD [address] [place] [address] [place] [address] documented as of this encounter Visit Diagnoses Not on filedocumented in this encounter Care Teams Soda Dry House Operator Relationship Specialty Start Date End Date Krys Owens MD [address] [place] [address] PCP - General Internal Medicine 04/06/24 documented as of this encounter
--- OUTSIDE RECORDS SUMMARY | 2025-02-19 18:53 | XMS_ITS | Encounter Summary ---
Author Organization [facility] Address [address] [place] [address] Phone Care Team Providers Care Paint Spray Inspector Name Role Phone Krys Owens MD Primary Care Provider [phone] Encounter Details Date Type Department Care Team (Late Contact Info) Description 10/05/2024 Documentation Only [facility] [address] [place] [address] Raquel Alvarado [address] [place] [address] Social History Tobacco Use Types [...] Visit [facility] [address] [place] [address] Wilbur Gamez MD [address] [place] [address] [place] [address] documented as of this encounter Visit Diagnoses Not on filedocumented in this encounter Care Teams Paint Spray Inspector Relationship Specialty Start Date End Date Krys Owens MD [address] [place] [address] PCP - General Internal Medicine 04/06/24 documented as of this encounter
--- OUTSIDE RECORDS SUMMARY | 2025-02-19 18:53 | XMS_ITS | Encounter Summary ---
Author Organization [facility] Address [address] [place] [address] Care Team Providers Care Petroleum Refining Equipment Operator Name Role Phone Krys Owens MD Primary Care Provider [phone] Reason for Visit * Reason Onset Date Comments Medication 03/24/2024 Encounter Details Date Type Department Care Team Description 03/24/2024 Refill Gastroenterology - [place] [address] [facility] [address] [place] [address] Dandy Woods DO [address] [facility] [place] [address] Medication Social History Tobacco Use Types Packs/Day [...] on filedocumented in this encounter Care Teams Petroleum Refining Equipment Operator Relationship Specialty Start Date End Date Krys Owens MD [address] [place] [id number] PCP - General Internal Medicine 11/04/20 documented as of this encounter
--- OUTSIDE RECORDS SUMMARY | 2025-02-19 18:53 | XMS_ITS | Encounter Summary ---
Author Organization [facility] Address [address] [place] [address] Care Team Providers Care Insurance Risk Surveyor Name Role Phone Otilia Herr DO Primary Care Pro vider Unavailable Krys Owens MD Primary Care Provider [phone] Reason for Referral * Non JUAN (Routine) - Authorized/Booked Specialty Diagnoses / Procedures Referred By Destinee sibley Referred To Contact Gastroenterology Procedures REFERRAL TO GASTROENTEROLOGY Otilia Herr DO [address] [place] [address] Gastro [place]/[address] [place] [address] [place] [phone] Referral ID Status Reason Start Date Expiration Date V isits Requested Visits Authorized [id number] Authorized/B ooked 07/27/2019 07/26/2020 1 1 Reason for Visit * Reason Onset Date Comments Appointment-Internal Referral 07/26/2019 Encounter Details Date Type Department Care Team Description 07/26/2019 Telephone Adult Medicine [address] [address] Otilia Herr DO Appointment-Internal Referral Social History [...] INDEMNITY $20 ANDOVER / Product Type: PPO [id number] documented in this encounter Plan of Treatment Not on file documented as of this encounter Visit Diagnoses Not on filedocumented in this encounter Care Teams Insurance Risk Surveyor Relationship Specialty Start Date End Date Otilia Herr DO PCP - General Internal Medicine 08/09/13 11/03/20 Krys Owens MD [address] [place] [address] PCP - General Internal Medicine 11/04/20 documented as of this encounter
--- OUTSIDE RECORDS SUMMARY | 2025-02-19 18:53 | XMS_ITS | Encounter Summary ---
Author Organization [facility] Address [address] [place] [address] Care Team Providers Care Rn Patient Services Name Role Phone Otilia Herr DO Primary Care Pro vider Unavailable Krys Owens MD Primary Care Provider [phone] Encounter Details Date Type Department Care Team Description 10/31/2019 Rotary Saw Operator Report Medical Records [address] [place] [address] [facility] Social History Tobacco Use Types Packs/Day Years [...] filedocumented in this encounter Care Teams Rn Patient Services Relationship Specialty Start Date End Date Otilia Herr DO PCP - General Internal Medicine 08/09/13 11/03/20 Krys Owens MD [address] [place] [address] PCP - General Internal Medicine 11/04/20 documented as of this encounter
--- OUTSIDE RECORDS SUMMARY | 2025-02-19 18:53 | XMS_ITS | Encounter Summary ---
Author Organization [facility] Address [address] [place] [address] Phone Care Team Providers Care Split Leather Mosser Name Role Phone Krys Owens MD Primary Care Provider [phone] Encounter Details Date Type Department Care Team (Late Contact Info) Description 12/21/2023 Documentation Only [facility] [address] [place] [address] [place] [address] [place] [phone] Social History Tobacco Use Types Packs/Day Years [...] Visit [facility] [address] [place] [address] Wilbur Gamez MD [address] [place] [address] [place] [address] documented as of this encounter Visit Diagnoses Not on filedocumented in this encounter Care Teams Split Leather Mosser Relationship Specialty Start Date End Date Krys Owens MD [address] [place] [id number] PCP - General Internal Medicine 04/06/24 documented as of this encounter
--- OUTSIDE RECORDS SUMMARY | 2025-02-19 18:53 | XMS_ITS | Encounter Summary ---
Author Organization [facility] Address [address] [place] [address] Phone Care Team Providers Care Bead Wrapper Name Role Phone Krys Owens MD Primary Care Provider [phone] Encounter Details Date Type Department Care Team (Late Contact Info) Description 01/25/2024 Documentation Only [facility] [address] [place] [address] Raquel Alvarado [address] [place] [phone] Social History Tobacco Use Types Packs/Day [...] Visit [facility] [address] [place] [address] Wilbur Gamez MD [address] [place] [address] [place] [address] documented as of this encounter Visit Diagnoses Not on filedocumented in this encounter Care Teams Bead Wrapper Relationship Specialty Start Date End Date Krys Owens MD [address] [place] [address] PCP - General Internal Medicine 04/06/24 documented as of this encounter
--- OUTSIDE RECORDS SUMMARY | 2025-02-19 18:53 | XMS_ITS | Encounter Summary ---
Author Organization [facility] Address [address] [place] [address] Phone Care Team Providers Care Bag Maker Name Role Phone Krys Owens MD Primary Care Provider [phone] Encounter Details Date Type Department Care Team (Late Contact Info) Description 12/29/2023 Documentation Only [facility] [address] [place] [place] [address] aRquel Alvarado [address] [place] [phone] Social History Tobacco Use Types Packs/Day [...] Visit [facility] [address] [place] [place] [address] Wiblur Gamez MD [address] [place] [address] [place] [address] documented as of this encounter Visit Diagnoses Not on filedocumented in this encounter Care Teams Bag Maker Relationship Specialty Start Date End Date Krys Owens MD [address] [place] [address] PCP - General Internal Medicine 04/06/24 documented as of this encounter
--- OUTSIDE RECORDS SUMMARY | 2025-02-19 18:53 | XMS_ITS | Encounter Summary ---
Author Organization [facility] Address [address] [place] [address] Phone Care Team Providers Care Casing In Line Feeder Name Role Phone Krys Owens MD Primary Care Provider [phone] Encounter Details Date Type Department Care Team (Late Contact Info) Description 02/14/2024 Documentation Only [facility] [address] [place] [address] [place] [address] [place] [phone] Social History Tobacco Use Types Packs/Day [...] Visit [facility] [address] [place] [address] Wilbur Gamez MD [address] [place] [address] [place] [address] documented as of this encounter Visit Diagnoses Not on filedocumented in this encounter Care Teams Casing In Line Feeder Relationship Specialty Start Date End Date Krys Owens MD [address] [place] [address] PCP - General Internal Medicine 04/06/24 documented as of this encounter
--- OUTSIDE RECORDS SUMMARY | 2025-02-19 18:53 | XMS_ITS | Encounter Summary ---
Author Organization [facility] Address [address] [place] [address] Phone Care Team Providers Care Reading Specialist Name Role Phone Krys Owens MD Primary Care Provider [phone] Encounter Details Date Type Department Care Team (Late Contact Info) Description 10/05/2024 Documentation Only [facility] [address] [place] [address] Raquel Alvarado [address] [place] [address] Social History Tobacco Use Types [...] [facility] [address] [place] [address] Wilbur Gamez MD [address] [place] [address] [place] [address] documented as of this encounter Visit Diagnoses Not on filedocumented in this encounter Care Teams Reading Specialist Relationship Specialty Start Date End Date Krys Owens MD [address] [place] [address] PCP - General Internal Medicine 04/06/24 documented as of this encounter
--- OUTSIDE RECORDS SUMMARY | 2025-02-19 18:53 | XMS_ITS | Clinical Summary ---
Author Organization [facility] Address [address] [place] [address] Phone Care Team Providers Care Evs Tech Name Role Phone Krys Owens MD Primary Care Provider [phone] Allergies Active Allergy Reactions Criticality Noted Date [...] Refill [facility] [place], [address] [place] [address] Raquel Alvarado from Last 3 Months Immunizations Immunization Administration [...] Visit [facility] [place], [address] [place] [address] Wilbur Gamez MD [address] [facility] [place] [phone] Health Maintenance Due Date Last Done Comments Breast Cancer Screening 1960 Pneumococcal Vaccine: 50+ Ye ars (1 of 2 - PCV) 1977 Colorectal Cancer Screening: Annual FOBT 2007 Colorectal Cancer Screening: Colonoscopy 2007 Colorectal Cancer Screening: Sigmoidoscopy 2007 Influenza Vaccine (#1) 2025 Hepatitis B Vaccine Aged Out No longe r eligible based on patient's age to complete this topic Insurance [facility] [place] [facility] Care Teams Evs Tech Relationship Specialty Start Date End Date Krys Owens MD [address] [place] [id number] PCP - General Internal Medicine 04/06/24
== END 2025-02-19 13:02 | disposition home or self-care (01) ==
LOC: HO.LNP 13:01
PROVIDERS: Visit Provider Physician Assistant Medical
DX: K13.0 Diseases of lips (principal)
CPT/HCPCS: 87255

== ENCOUNTER 2025-02-19 13:01 | Outpatient (AMB) | payer OTHER, SELFPAY ==
[2025-02-19 13:11] VITALS: BP 106/64; PULSE 68; RESP 18; TEMP 36.8; O2SAT 99; BMI 21.7
--- NOTE | 2025-02-19 13:11 | MHC.OFFWIV ---
Intake Vital Signs 02/19/25 13:11 Height 5 ft Weight 111 lb BMI 21.7 BP 106/64 Blood Pressure Location Rt brachial Position Sitting Respiration 18 Pulse 68 Pulse Source Pulse Oximeter Temp 98.3 F Temp Source Oral Pulse Oximetry (%) 99 Oxygen Delivery Method Room Air Intake Visit Reasons: EP Infection on lips? Intake Note: Pt is here today for a walk in visit. Pt c/o redness and pain in the corners of her mouth on and off for a while now that is getting worst. Patient Tobacco Use Status: Former Tobacco user Allergies acetaminophen (Percocet) Allergy (Unknown, Verified 02/19/25 13:15) Vomiting codeine (CODEINE) Allergy (Unknown, Verified 02/19/25 13:15) VOMITING oxycodone (Percocet) Allergy (Unknown, Verified 02/19/25 13:15) Vomiting HPI HPI Comments History of Present Illness Details History of Present Illness - The patient is a 64-year-old female presenting with crusting and pain at the corners of the lips for many months. - The patient reports persistent crusting at the corners of her lips for several months, which is painful, especially when consuming acidic foods. - She has been using Vaseline and Aquaphor for symptom management and denies oral herpes but reports occasional canker sores. 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 - She denies discharge or bleeding. - She denies fever, chills, or mouth pain. Physical Exam General: Cooperative, healthy appearing, comfortable, no acute distress and well developed Orientation: Patient oriented x3 Mouth: Dry cracked lips with yellow crusting noted at the corners bilaterally. No discharge or bleeding noted. No lesions noted on the lips or in the mouth. Moist mucosa noted. Respiratory: Normal respiratory effort and able to speak in complete sentences. Clear to auscultation bilaterally Cardiovascular: Regular rate and rhythm. Normal S1 and S2 Skin: No rashes or lesions noted Patient was informed and verbally consented to the use of an ambient scribe for clinic note documentation during this visit [facility] Surgical History S/P drug eluting coronary stent placement Family History Maternal Aunt Breast cancer, Onset Age: 76 Maternal Grandmother Breast cancer, Onset Age: 55 Mother Coronary artery disease Arthritis Gout Father Coronary artery disease Salivary gland cancer Sister Hypertension Maternal Aunt Lung cancer Maternal Grandmother Cancer Brother Gout Other Uterine cancer Social History Household Members Other:: lives alone [facility] Are you a primary childcare worker to a significant other at home: No Do you presently have visiting nurse or other home services: No 75 years or older and lives alone: No Alcohol intake: current Alcohol intake frequency: holidays/special occasions only Alcohol type: wine Patient Tobacco Use Status: Former Tobacco user e-Cigarette/Vaping Use: Never Used service: No Current occupational status: employed Review of Systems Const All systems reviewed & are unremarkable except as noted in HPI and below Physical Exam Vital Signs: Last Vital Signs Temp 98.3 F 02/19/25 13:11 Pulse 68 02/19/25 13:11 Resp 18 02/19/25 13:11 BP 106/64 02/19/25 13:11 Pulse Ox 99 02/19/25 13:11 Oxygen Delivery Method Room Air 02/19/25 13:11 BMI result Body Mass Index 21.7 Assessment & Plan Assessment & Plan (1) Painful lips: Code(s): K13.0 - Diseases of lips Plan Most likely angular cheilitis vs herpes vs impetigo plan - will order a herpes culture - betamethasone cream to the area BID for 2 weeks, make sure not to get any in the mouth - advised her to avoid irritants such as vaping - valtrex for 7 days, in case of herpes - keflex 4 times a day - follow up with PCP - will call with the results Orders: Orders Herpes Virus Culture Today K13.0 - Diseases of lips Medications: New cephalexin 500 mg PO Q6H 28 caps 0RF betamethasone dipropionate 0.05% 1 appl topical DAILY PRN 45 grams 0RF skin irritation 7 days valacyclovir 1,000 mg PO Q8H 21 tabs 0RF 7 days Coding Level of Care Code Est Pt Level 3 (74931) Diagnoses Painful lips K13.0
== END 2025-02-19 14:36 | disposition home or self-care (01) ==
PROVIDERS: Visit Provider Physician Assistant Medical
DX: K13.0 Diseases of lips (principal)

== ENCOUNTER 2025-03-22 09:21 | Outpatient (AMB) | payer MEDICARE, OTHER, SELFPAY ==
--- NOTE | 2025-03-22 09:25 | MHC.OFFVIS ---
Vital Signs 03/22/25 09:30 Height 5 ft Weight 115 lb 1.301 oz BMI 22.5 BP 118/64 Blood Pressure Location Lt brachial Position Sitting Pulse 68 Pulse Source Pulse Oximeter Pulse Oximetry (%) 99 Oxygen Delivery Method Room Air Intake Visit Reasons: RA Intake Note: Patient presents for RA follow up. Allergies acetaminophen (Percocet) Allergy (Unknown, Verified 03/22/25 09:29) Vomiting codeine (CODEINE) Allergy (Unknown, Verified 03/22/25 09:29) VOMITING oxycodone (Percocet) Allergy (Unknown, Verified 03/22/25 09:29) Vomiting Medication List - Last Reconciled 03/22/25 by Thais Gill MD allopurinol 100 mg PO DAILY aspirin (Adult Low Dose Aspirin) 81 mg PO DAILY atorvastatin 80 mg PO DAILY betamethasone dipropionate 0.05% 1 appl topical DAILY PRN 7 days Hyrimoz(CF) Pen (adalimumab-adaz) 40 mg (0.4 mL) subcut Q2W 30 days NS lisinopril 15 mg PO DAILY mecobalamin (vitamin B12) 1,000 mcg PO DAILY metoprolol succinate ER 50 mg PO DAILY mupirocin 2% 1 appl topical TID prednisone 40 mg PO DAILY PRN HPI Comments Details: Patient is a 65-year-old female with hyperlipidemia, hypertension complicated by NSTEMI, non crystal proven gout, seropositive rheumatoid arthritis and polyarticular osteoarthritis here today for follow up Interval History: Patient last seen 05/02/[address] Jimenez - On Humira 40mg SC every other week - Back in December she presented to the hospital with right ankle and foot swelling and severe pain. She was diagnosed with gout and treated with colchicine and prednisone. She had a similar attack involving her right ankle 2 months later. At that time she was evaluated by her international account manager and started on a daily pill, she thinks it is allopurinol and she also has prednisone to use as needed for flare-ups. Has not had any gout attacks since. She denies history of kidneys. Her mother and brother both have gout. She is doing well otherwise Today - On Hymiroz 40mg SC every other week, allopurinol 100mg (from nephrology) - Doing well overall - No complaints Rheumatologic History: ++RF+++CCP Onset ~2013 - palindromic pattern 10/08-12/08 - sulfasalazine tried - GI intolerance Jun 2018: methotrexate started. Stopped due to ineffectiveness2019 Humira started 10/2020 - good response - ran out in October 2021 - flared 12/2021 Humira restarted effective, switch to bio similar 07/2023 effective Current Rheumatology Medication(s): Hymiroz 40mg SC every 2 weeks PFSH Medical History (Updated 03/22/25 @ 10:19 by Thais Gill MD) Gout Surgical History S/P drug eluting coronary stent placement Family History Maternal Aunt Breast cancer, Onset Age: 76 Maternal Grandmother Breast cancer, Onset Age: 55 Mother Coronary artery disease Arthritis Gout Father Coronary artery disease Salivary gland cancer Sister Hypertension Maternal Aunt Lung cancer Maternal Grandmother Cancer Brother Gout Other Uterine cancer Social History Household Members Other:: lives alone [facility] Are you a primary child care attendant to a significant other at home: No Do you presently have visiting nurse or other home services: No 75 years or older and lives alone: No Alcohol intake: current Alcohol intake frequency: holidays/special occasions only Alcohol type: wine Patient Tobacco Use Status: Former Tobacco user e-Cigarette/Vaping Use: Never Used service: No Current occupational status: employed Review of Systems Narrative Review of Systems Constitutional: Denies fever, chills, weight loss ENT: Denies vision changes, eye pain or eye redness, dental caries, dry mouth GI: Denies nausea, vomiting, diarrhea, abdominal pain, change in BM Pulm: Denies SOB, CASTRO, hemoptysis, wheezing Cards: Denies chest pain, palpitations Skin: Denies rash, nail changes, photosensitivity, POSTING MACHINE OPERATOR: Denies headaches, weakness, paresthesias, recurrent falls MSK: as per HPI All other systems reviewed and are unremarkable except noted above Physical Exam Exam Exam: Vital signs reviewed Physical Examination CONSTITUITIONAL Patient alert and cooperative. Well appearing and in no apparent painful distress MSK Hands Right Hand: Able to make a fist. No swelling or tenderness to palpation of the MCPs, PIPs or DIPs. Left Hand: Able to make a fist. No swelling or tenderness to palpation of the MCPs, PIPs or DIPs. Fibrous thickening of the A1 adenike of the middle finger. No triggering Wrists Right Wrist: Full ROM to flexion and extension. No swelling or TTP Left Wrist: Full ROM to flexion and extension. No swelling or TTP Elbows Right Elbow: Full ROM. No swelling or TTP. No TTP of the medial epicondyle. No TTP of the lateral epicondyle Left Elbow: Full ROM. No swelling or TTP. No TTP of the medial epicondyle. No TTP of the lateral epicondyle Shoulders Right shoulder: Full ROM. No swelling noted. No TTP of the AC joint. No TTP of the subacromial bursa. No TTP of the posterior shoulder Left shoulder: Full ROM. No swelling noted. No TTP of the AC joint. No TTP of the subacromial bursa. No TTP of the posterior shoulder Knees Right knee: Full ROM. No swelling noted. No TTP of the knee joint line. No TTP of pes anserine bursa Left knee: Full ROM. No swelling noted. No TTP of the knee joint line. No TTP of pes anserine bursa. Ankles Right ankle: Good ankle dorsiflexion and plantar flexion. No swelling. No TTP of the ankle joint Left ankle: Good ankle dorsiflexion and plantar flexion. No swelling. No TTP of the ankle joint Feet Right foot: Negative squeeze test Left foot: Negative squeeze test Tender points? No tenderness to palpation of the bilateral trapezius, supraspinatus, anterior costochondral junctions, bilateral suboccipital muscle insertions SKIN Livedo reticularis noted Vital Signs: Last Vital Signs Pulse 68 03/22/25 09:30 BP 118/64 03/22/25 09:30 Pulse Ox 99 03/22/25 09:30 Oxygen Delivery Method Room Air 03/22/25 09:30 BMI result Body Mass Index 22.5 Results Reviewed Results Reviewed: Laboratory Tests 07/26/24 13:37 WBC 6.3 RBC 3.74 L Hgb 11.9 L Hct 35.5 L Plt Count 300 ESR 10 Sodium 139 Potassium 4.6 Chloride 110 H Carbon Dioxide 24 BUN 19 H Creatinine 0.89 AST 24 ALT 19 C-Reactive Protein < 0.04 Laboratory Tests 07/26/24 13:37 Hepatitis A IgM Ab Nonreactive Hep Bs Antigen Negative Hep Bs Antibody REACTIVE Hep B Core Total Ab Nonreactive Hepatitis C Ab (EIA) Nonreactive TB Test (T-Spot) Com Negative Assessment & Plan Assessment & Plan (1) Seropositive rheumatoid arthritis: Comment: ++RF+++CCP Onset ~2013 - palindromic pattern 10/08-12/08 - sulfasalazine tried - GI intolerance Jun 2018: methotrexate started. Stopped due to ineffectiveness, 2019 Humira started 10/2020 - good response - ran out in October 2021 - flared 12/2021 Humira restarted effective, switch to bio similar 07/2023 effective Code(s): M05.9 - Rheumatoid arthritis with rheumatoid factor, unspecified Category: Medical Plan: #Seropositive RA Patient is a 65-year-old female with seropositive rheumatoid arthritis here today for follow up. Currently in remission on Hymiroz monotherapy Plan - Hymiroz 40mg SC every 2 weeks - Labs today: CBC, CMP, ESR, CRP, Hepatitis panel and T spot - RTC 6 months - Labs before visit: CBC, CMP, ESR, CRP (2) Gout: Code(s): M10.9 - Gout, unspecified Category: Medical Qualifiers: Gout site: unspecified site Gout etiology: due to renal impairment Chronicity: chronic Presence of tophus: without tophus Qualified Code(s): M1A.30X0 - Chronic gout due to renal impairment, unspecified site, without tophus (tophi) Plan: #Non crystal proven gout Patient with non crystal proven gout currently being managed by Nephrology Plan - check uric acid (3) Screening for osteoporosis: Code(s): Z13.820 - Encounter for screening for osteoporosis Plan: #Screening for osteoporosis Patient is due for osteoporosis screening. We will order DEXA and check vitamin-D Plan - DEXA - Vit D (4) Encounter for monitoring of adalimumab therapy: Code(s): Z51.81 - Encounter for therapeutic drug level monitoring; Z79.620 - termite treater helper (current) use of immunosuppressive biologic Plan: #Long-term Use of TNF Inhibitors: Hymiroz Discussed with the patient the benefits and risks of TNF inhibitors for the management of the rheumatic condition Benefits include reduce pain, maintenance of remission and reduction of flares as well as progression of the disease Risks include injection sites/infusion reactions, serious infections (such as bacterial infections, opportunistic infections), malignancy, delaminating syndromes, autoimmune phenomena, CHF exacerbations, palmar plantar psoriasis and cytopenias Recommended rotating injection sites, and holding medication during and for up to 1 week after resolution of a febrile illness or open skin wound Plan This is my 1st visit with the patient. I spent 40 minutes reviewing the record and labs, taking a history, examining the patient, discussing the treatment plan, ordering diagnostic work up and documenting in the medical record Orders: Orders XR DEXA axial skeleton Today M81.0 - Age-related osteoporosis without current pathological fracture Erythrocyte Sedimentation Rate Today Z79.899 - Other computer terminal operator (current) drug therapy Hepatitis B,C Profile Today Z79.899 - Other computer terminal operator (current) drug therapy Uric Acid Today M10.9 - Gout, unspecified Complete Blood Count Auto Diff 6 Months Z79.899 - [facility] [place] [facility] drug therapy C Reactive Protein 6 Months Z79.899 - [facility] [place] [facility] ([facility] drug therapy Erythrocyte Sedimentation Rate 6 Months Z79.899 - Other [place] (current) drug therapy Vitamin D 25-OH Total Today E55.9 - Vitamin D deficiency, unspecified Vitamin D 25-OH Total 6 Months E55.9 - Vitamin D deficiency, unspecified Complete Blood Count Auto Diff Today Z79.899 - Other [facility] (current) drug therapy Comprehensive Met. Panel Today Z79.899 - Other computer terminal operator (current) drug therapy C Reactive Protein Today Z79.899 - Other computer terminal operator (current) drug therapy T Spot TB Today Z79.899 - Other computer terminal operator (current) drug therapy Comprehensive Met. Panel 6 Months Z79.899 - Other [facility] (current) drug therapy Medications: Refilled Hyrimoz(CF) Pen (adalimumab-adaz) 40 mg (0.4 mL) subcut Q2W 0.8 mL 5RF 30 days NS M05.9 - Rheumatoid arthritis with rheumatoid factor, unspecified Coding Level of Care Code Est Pt Level 5 (70893) Complex EM visit Add On G2211 Diagnoses Seropositive rheumatoid arthritis M05.9 Chronic gout due to renal impairment without tophus, unspecified site M1A.30X0 Gout site: unspecified site Gout etiology: due to renal impairment Chronicity: chronic Presence of tophus: without tophus Screening for osteoporosis Z13.820 Encounter for monitoring of adalimumab therapy Z51.81; Z79.620
[2025-03-22 09:30] VITALS: BP 118/64; PULSE 68; O2SAT 99; BMI 22.5
--- OUTSIDE RECORDS SUMMARY | 2025-03-22 10:46 | XMS_ITS | Encounter Summary ---
Author Organization [facility] [place] [address] Care Team Providers Care Fire Crew Specialist Name Role Phone Krys Owens MD Primary Care Provider [phone] Encounter Details Date Type Department Care Team (Late st Contact Info) Description 03/12/2025 Results Follow-Up Adult Medicine [facility] [address], [place] [phone] Krys Owens MD [address], [place] Social History Tobacco Use Types Packs/Day Years Used Date Smoking Tobacco: Former Cigarettes Q uit: 10/16/2020 Smokeless Tobacco: Never Alcohol Use Standard Drinks/Week Comments Yes 0 (1 standard drink = 0.6 oz pur e alcohol) Housing Instability Answer Date Recorde d Are you worried that in the next 2 months you may not have stable housing? No 03/07/2025 Food Access & Nutrition Answer Date Rec orded Do you have access to a vari ety of food including fruits and vegetables? Yes 03/07/2025 Access to Healthcare Answer Date Record ed Within the last 3 months, ho w many times did you visit the emergency department for your medical care? 0 03/07/2025 Health Literacy Answer Date Recorded How often do you need to hav e someone help you when you read instructions, pamphlets, or other written material from your doctor or pharmacy? Never 03/07/2025 Caregiver: How often do you need to have someone help you when you read instructions, pamphlets, or other written material from your doctor or pharmacy? Not on file 03/07/2025 Financial Risk Answer Date Recorded How hard is it for you to pa y for the very basics like food, housing, medical care, and air conditioning / heating? Patient declined 03/07/2025 Transportation Answer Date Recorded Has the lack of transportati on kept you from meetings, work, or from getting things needed for daily living? No Has the lack of transportati on kept you from medical appointments or from getting medications? No 03/07/2025 Social Isolation Answer Date Recorded How often do you feel lonely or isolated from th ose around you? Never 03/07/2025 Food Risk Answer Date Recorded Within the past 12 months we worried whether our food would run out before we got money to buy more. Never true 03/07/2025 Within the past 12 months th e food we bought just didn't last and we didn't have money to get more. Never true 03/07/2025 Dependent Care Answer Date Recorded Do you need help finding or paying for care for your loved ones. For example, children's service worker or elderly care for an older adult? No 03/07/2025 Education Answer Date Recorded Do you think completing more education or training, like finishing a GED, going to college, or learning a trade, would be helpful for you? No 03/07/2025 Employment and Income Answer Date Recor ded During the last four weeks, have you been actively looking for work? No 03/07/2025 Living Situation Answer Date Recorded What is your living situation? Unrecognized valu e 03/07/2025 Interpersonal Safety Answer Date Record ed Physical [...] Care Team (Late st Contact Info) Description 03/29/2025 1:15 PM EST Office Visit Adult Medicine [facility] [address], [place] [phone] Rubina Pedro PA [address], [place] documented as of this encounter Visit Diagnoses Not on filedocumented in this encounter Additional Health Concerns Assessment Noted Time PHQ-9 Depression Total Score: 0 03/07/20 25 3:52 PM EDT documented as of this encounter Care Teams Fire Crew Specialist Relationship Specialty Start Date End Date Krys Owens MD [address], [place] PCP - General Internal Medicine 11/04/20 documented as of this encounter
--- OUTSIDE RECORDS SUMMARY | 2025-03-22 10:46 | XMS_ITS | Clinical Summary ---
Author Organization [facility] Address [address] [place] [address] Phone Care Team Providers Care Targeteer Name Role Phone Krys Owens MD Primary Care Provider [phone] Allergies Active Allergy Reactions Criticality Noted Date Comments Codeine Nausea And Vomiting High 08/09/2013 VOMITING Medications adalimumab-ada z (HYRIMOZ) 40 mg/0.4 mL pen [...] EVERY DAY 90 tablet 01/25/20 25 Active nystatin (MYCOSTATIN) cream Apply thin layer to affected area BID for 2 weeks 30 g 03/08/20 25 Active nystatin (MYCOSTATIN) cream TAKE 1 APPLICATION (TOPICAL) 3 TIMES PER DAY FOR 14 DAYS 09/10/19 24 025 Discontinued mupirocin (BACTROBAN) 2 % cream Apply topically 3 (three) times a day for 10 days. 30 g 03/08/20 25 025 Active Problems Problem Noted Date Diagnosed Date Tobacco use 03/07/2024 Ischemic heart disease 02/02/2020 Varicose veins of both lower extremities with pa in 09/13/2018 Seropositive rheumatoid arth ritis ([facility] V24, [facility] V28) 07/21/2018 Overview (03/03/2024): Onset ~2013 - palindromic pattern 10/08-12/08 - sulfasalazine tried - GI intolerance Jun 2018: methotrexate started. Stopped due to ineffectiveness, 2019 Essential hypertension 10/15/2016 Hyperlipidemia 10/15/2016 CAD (coronary artery disease) 03/19/2015 Overview (03/03/2024): H/o NSTEMI B12 deficiency 08/30/2014 Encounters Date Type Department Care Team Description 03/12/2025 Results Follow-Up Adult Medicine [address] [phone] Krys Owens MD 03/08/2025 10:00 AM EDT Office Visit Adult Medicine [address] [phone] Krys Owens MD Essential hypertension (Primary Dx); Coronary artery disease involving [place] coronary artery of [place] heart without angina pectoris; Other hyperlipidemia; B12 deficiency; Impetigo; Cheilitis; Lip lesion; Seropositive rheumatoid arthritis ([facility] V24, [facility] V28) 03/07/[address] [phone] Krys Owens MD from Last 3 Months Immunizations Immunization Administration Dates Next Due Moderna SARS-CoV-2 COVID-19, mRNA, LNP-S, preservative free 06/12/2021,08/09/2020,07/12/2020,2020 Td Tetanus diptheria (Tdvax) 7yo and older 11/30/2023 Surgical History Surgery Date Site/Laterality Comments HYSTERECTOMY 1994 PROCEDURE: HISTORICAL HYSTERECTOMY; COMMENT: ovaries intact, TVH BREAST BIOPSY 30S PROCEDURE: BX BREAST; PERC NEEDLE CORE W/IMAG GUID; COMMENT: LT. BREAST BX-BENIGN BREAST SURGERY PROCEDURE: ME UNLISTED PROCEDURE BREAST; COMMENT: REMOVED CYST LT. BREAST Medical History Medical History Date Comments CRP elevated DX:CRP elevated Frozen shoulder DX:Frozen should er Abnormal mammogram DX:Abnormal m ammogram CAD (coronary artery disease) DX :CAD (coronary artery disease) Pulmonary nodule DX:Pulmonary no dule Calcified granuloma of lung DX:C alcified granuloma of lung; COMMENT: LDCT Chronic kidney disease Gout Arthritis Rheumatoid arthritis ([facility] V24, [facility] V28) Hypertension Hyperlipidemia NSTEMI (non-ST elevated myoc ardial infarction) ([facility] V24, [facility] V28) 03/19/2015 Ischemic heart disease Family History Medical History Relation Name Comments Breast cancer Aunt M. AUNT.40S maternal Other: salivary gland cancer Father cad Breast cancer Maternal Grandmother 50S Arthritis Mother Coronary artery disease Mother Other cancer Mother's side 1 grandmother, unknown primary Lung cancer Mother's side 2 aunt Uterine cancer Other 1 M. [id number] ?cousin Breast cancer Other 2 M. [id number] Hypertension Sister Colon cancer Neg Hx Ovarian cancer Neg Hx Relation Name Status Comments Aunt M. AUNT.40S Alive Father Maternal Grandmother 50S Mother Mother's side 1 Mother's side 2 Other 1 M. [id number] Other 2 M. [id number] Other 3 M. [id number] Alive Sister Social History Tobacco Use Types [...] care for your loved ones. For example, attendant child activity or elderly care for an older adult? [...] Sign Reading Time Taken Comments Blood Pressure 112/58 03/08/2025 10:03 AM EDT Pulse 65 03/08/2025 10:03 AM EDT Temperature 35.9 C (96.6 F) 03/08/2025 10:03 AM EDT Respiratory Rate 14 03/08/2025 10:03 AM EDT Oxygen Saturation 98% 03/08/2025 10:03 AM EDT Inhaled Oxygen Concentration - - Weight 51.3 kg (113 lb 1.6 oz) 03/08/2025 10:03 AM EDT Height 152.4 cm (5') 03/08/2025 10:03 AM EDT Body Mass Index 22.09 03/08/2025 10:03 AM EDT Plan of Treatment Upcoming Encounters Date Type Department Care Team (Late st Contact Info) Description 03/29/2025 1:15 PM EST Office Visit Adult Medicine [facility] [address], [place] [phone] Rubina Pedro PA [address], [place] Health Maintenance Due Date Last Done Comments Zoster Vaccines (1 of 2) 1977 Pneumococcal Vaccine: 50+ Years (1 of 1 - PCV) 2008 Breast Cancer Screening 06/17/2017 06/17/2015 Medicare Annual Wellness Visit 04/26/2022 Osteoporosis Screening (Bone Density Screening) 04/26/2022 COVID-19 Vaccine ( season) 2025 06/12/2021, 08/09/2020, 07/12/2020, Additional history exists Influenza Vaccine (#1) 2025 Falls Risk Assessment 04/14/2025 04/14/2024 Social Influencers of Health Screening 03/07/2026 03/07/2025 Hypertension/CHF/CAD Annual BMP Blood Test 03/12/2026 03/12/2025, 03/21/2024, 11/30/2023, Additional history exists Cholesterol Screening (Lipid Panel) 03/12/2030 03/12/2025, 07/19/2020 RSV Immunization Adult Patients (1 - 1-dose 75+ series) 2033 DTaP,Tdap,and Td Vaccines (2 - Td or Tdap) 11/29/2033 11/30/2023 Colorectal Cancer Screening: Colonoscopy 04/14/2034 04/14/2024 Hepatitis C Screening Completed 08/07/2020 Depression Screening Completed 03/07/2025 HIB Vaccines Aged Out No longer eligi [...] this topic Medical Devices Implanted Type Area Rotary Pump Operator Device Identifier Shelf Expiration Date Model / Serial / Lot Stents Stents N/A: Heart Procedures Procedure Name Priority Date/Time Associated Diagnosis Comments LIPID PANEL WITH REFLEX TO DIRECT LDL Routine 03/12/2025 9:32 AM EDT Other hyperlipidemia VITAMIN B12 Routine 03/12/2025 9:32 AM EDT B12 deficiency BASIC METABOLIC PANEL Routine 03/12/2025 9:32 AM EDT Essential hypertension Coronary artery disease involving [place] coronary artery of [place] heart without angina pectoris COLONOSCOPY Routine 04/14/2024 3:48 PM EST Weight loss HEPATITIS C SCREENING Routine 08/07/2020 from Last 3 Months or Most Recently Relevant to Health Maintenance Results * Lipid panel with reflex to direct LDL (03/12/2025 9:32 AM EDT) Cholesterol 155 0 - 200 mg/dL LAB CHEMISTRY METHOD 03/12/2025 2:30 PM EDT [facility] Triglycerides 95 0 - 150 mg/dL LAB CHEMISTRY METHOD 03/12/2025 2:30 PM EDT [facility] HDL 82 >=40 mg/dL LAB CHEMISTRY METHOD 03/12/2025 2:30 PM T [facility] LDL Calculated 54 0 - 100 mg/dL LAB CHEMISTRY METHOD 03/12/2025 2:30 PM T [facility] Comment:Estimated LDL Calcul ated using equation: Total cholesterol - HDL cholesterol - (Triglycerides/5) VLDL Cholesterol Chuck 19 mg/dL LAB CHEMISTRY METHOD 03/12/2025 2:30 PM EDT [facility] Non HDL Chol. (LDL+VLDL) 73 <145 mg/dL LAB CHEMISTRY METHOD 03/12/2025 2:30 PM EDT [facility] Chol/HDL Ratio 1.9 0.0 - 4.4 LAB CHEMISTRY METHOD 03/12/2025 2:30 PM [facility] Blood Venous blood specimen / Unknown Venipuncture / Unknown 03/12/2025 9:32 AM EDT 03/12/2025 9:32 AM EDT us Krys Owens MD LAB BLOOD ORDERABLES Final Resul t Performing Organization Address [facility]/ZIP Co de Phone Number [facility] [address] [place] [address], * (ABNORMAL) Vitamin B12 (03/12/2025 9:32 AM EDT) Pathologist [facility] Vitamin B-12 >2,000(H) 250 - 900 pcg/mL LAB CHEMISTRY METHOD 03/12/2025 2:25 PM EDT [facility] Blood Venous blood specimen / Unknown Venipuncture / Unknown 03/12/2025 9:32 AM EDT 03/12/2025 9:32 AM EDT Krys Owens MD LAB BLOOD ORDERABLES Final Resul t Performing Organization Address [facility] de Phone Number [facility] [address] [place] [address], [place] [phone] * (ABNORMAL) Basic metabolic panel (03/12/2025 9:32 AM EDT) Pathologist [facility] Sodium 136 133 - 145 mmol/L LAB CHEMISTRY METHOD 03/12/2025 2:00 PM [facility] Potassium 5.2 3.5 - 5.5 mmol/L LAB CHEMISTRY METHOD 03/12/2025 2:00 PM [facility] Chloride 108 96 - 110 mmol/L LAB CHEMISTRY METHOD 03/12/2025 2:00 PM [facility] CO2 22 21 - 32 mmol/L LAB CHEMISTRY METHOD 03/12/2025 2:00 PM [facility] Anion Gap 6 3 - 11 LAB CHEMISTRY METHOD 03/12/2025 2:00 PM [facility] Glucose 97 70 - 100 mg/dL LAB CHEMISTRY METHOD 03/12/2025 2:00 PM [facility] BUN 31(H) 5 - 25 mg/dL LAB CHEMISTRY METHOD 03/12/2025 2:00 PM EDT [facility] Creatinine 1.40(H) 0.50 - 1.10 mg/dL LAB CHEMISTRY METHOD 03/12/2025 2:00 PM EDT [facility] eGFR 41(L) >=60 mL/min/1. 73m2 LAB CHEMISTRY METHOD 03/12/2025 2:00 PM EDT [facility] Comment:Calculation based on the Chronic Kidney Disease Epidemiology Collaboration (CKD-EPI) equation refit without adjustment for race. BUN/Creatinine Ratio 22.1 LAB CHEMISTRY METHOD 03/12/2025 2:00 PM EDT [facility] Calcium 9.3 8.5 - 10.5 mg/dL LAB CHEMISTRY METHOD 03/12/2025 2:00 PM EDT [facility] Blood Venous blood specimen / Unknown Venipuncture / Unknown 03/12/2025 9:32 AM EDT 03/12/2025 9:32 AM EDT us Krys Owens MD LAB BLOOD ORDERABLES Final Resul t [facility] [address] [place] [address], * COLONOSCOPY Anesthesia - [facility] ENDOSCOPY (04/14/2024 3:48 PM EST) Anatomical [...] booking of today's procedure) to discuss a retirement therapeutic plan. Narrative 04/14/2024 3:51 PM [facility] GI Patient Name: Ilan Das Procedure Date: 04/14/2024 3:13 PM Date of : 1960 Age: 64 Gender: Female Note Status: Finalized Attending MD: Gm Woods DO, [id number] Procedure Date No Time: 04/14/2024 Procedure: Colonoscopy [...] the physician, the nurse, the anesthesiologist, the export specialist and the brewery technician in the pre-procedure area in the [...] retroflexion views. Procedure Code(s): --- Professional --- 39139, Colonoscopy, flexible; with removal of tumor(s), polyp(s), or other lesion(s) by snare technique 65314, 59, Colonoscopy, flexible; with biopsy, single or multiple Diagnosis Code(s): --- Professional --- R63.4, Abnormal weight loss D12.2, Benign neoplasm of ascending colon K64.9, Unspecified hemorrhoids CPT copyright 2020 [employer]. All rights reserved. The codes documented in this report are preliminary and upon hot dip galvanizer review may be revised to meet current compliance requirements. GM Woods DO 04/14/2024 3:51:13 PM This report has been signed electronically.Gm Woods DO Number of Addenda: 0 Note Initiated On: 04/14/2024 3:13 PM Scope Withdrawal Time: 0 hours 7 minutes 59 seconds Scope In: 3:33:02 PM Scope Out: 3:47:22 PM Endoscopy Department at [facility] - [address] [place] [phone] Procedure Note Gm Woods DO - 04/14/2024 [facility] GI Patient Name: Ilan Das Procedure Date: 04/14/2024 3:13 PM Date of : 1960 Age: 64 Gender: Female Note Status: Finalized Attending MD: Gm Woods DO, [id number] Procedure Date No Time: 04/14/2024 Procedure: Colonoscopy [...] the physician, the nurse, the anesthesiologist, the export specialist and thetechnician in the pre-procedure area in [...] retroflexion views. Procedure Code(s): --- Professional --- 00057, Colonoscopy, flexible; with removal of tumor(s), polyp(s), or other lesion(s) by snare technique 75747, 59, Colonoscopy, flexible; with biopsy,single or multiple Diagnosis Code(s): --- Professional --- R63.4, Abnormal weight loss D12.2, Benign neoplasm of ascending colon K64.9, Unspecified hemorrhoids CPT copyright 2020 [employer]. All rights reserved. The codes documented in this report are preliminary and upon hot dip galvanizer reviewmay be revised to meet current compliance requirements. GM Woods DO 04/14/2024 3:51:13 PM This report has been signed electronically.Gm Woods DO Number of Addenda: 0 Note Initiated On: 04/14/2024 3:13 PM Scope Withdrawal Time: 0 hours 7 minutes 59 seconds Scope In: 3:33:02 PM Scope Out: 3:47:22 PM Endoscopy Department at [facility] - [address] [place] [phone] IMPRESSION: - Hemorrhoids found on perianal exam. [...] booking of today's procedure) to discuss a intermediate school teacher therapeutic plan. Gm Woods DO GI~PROCEDURE ORDERABLES Final Re sult * Hepatitis C Screening (08/07/2020) Hepatitis C Screening abstracted Historical Provider HEALTH MAINTENANCE Final Result from Last 3 Months or Most Recently Relevant to Health Maintenance Insurance [facility] MEDICARE MEDICARE Care Teams Targeteer Relationship Specialty Start Date End Date Krys Owens MD [address] [place] [address] PCP - General Internal Medicine 11/04/20
--- OUTSIDE RECORDS SUMMARY | 2025-03-22 10:46 | XMS_ITS | Data Portability ---
Author Organization [facility] Address [address] [place] [address] Care Team Providers Care Drying Oven Attendant Name Role Phone [facility] Primary Care Provider Assessment No assessment recorded. Plan of Treatment Reminders Order Date Submit Date Provider Last Modified By Organization Details Last Modified Time Details Appointments None recorded. Lab rapid SARS CoV 2 Ag, QL IA, respiratory specimen 2022 023 [place] [address], [phone], 3 11:25:19 Referral None recorded. Procedures None recorded. Surgeries None recorded. Imaging None recorded. Medication Orders fluticasone propionate 50 mcg/actuati on nasal spray,suspe nsion [address]/Pharmacy [id number], [address] [place], [address], 3 11:27:07 Tessalon Perles 100 mg capsule 2022 023 [facility]armacy [id number], [address] [place], [address], 3 11:25:26 prednisone 20 mg tablet 2022 023 [facility]/Pharmacy [id number], [address] [place], [address], 3 11:25:26 cyclobenzap rine 10 mg tablet 2022 023 [id number], [address] [place], [address], 13:26:13 Patient TargetsNo targets recorded. Patient Instructions Encounter Date Encounter Id Patient Instructions Last Modified By Organization Details Last Modified Time 08/06/2022 [id number] Drink lots of fluids. Take medications as [...] Unknown Analyte Normal =Negat manisha Not Available [facility] [address] [place] [address], [phone], 10/08/2022 10:44:47 10/09/19 23 10/08/2022 rapid SARS CoV 2 Ag, QL IA, respi rator y speci men Unknown Analyte negati ve Not Available [facility] [address] [place] [address], [phone], 10/08/2022 10:44:47 Result Notes None recorded. Problems Name Problem SNOMED Code Status Onset Date Resolution Date Notes Provider Name and Address Organization Details Recorded Time Heart disease 19984686 Active 2022 JAYY issa [place] - [facility] 13:05:14 Hypertensive disorder 51757971 Active 2022 JAYY issa, [place] - [facility] 3 13:05:26 Hypercholestero lemia 05791140 Active 2022 [facility] issa [facility] - [facility] [...] Name and Address Organization Details Recorded Time [id number] codeine medicatio n vomiting Not available Not available 08/06/2022 2670 RxNorm JAYY issa [place] - [facility] 3 13:04:52 Medications Name [...] Pulse oximetry Heart rate Respiratory rate Systolic And Diastolic Provider Name and Address Organization Details Last Updated DateTime 3 152.4 cm 24 kg/m2 99199.8 6 g 97 [degF] 97 % 97 % 72 /min 16 /min 144/76 mm[Hg] JAYY GALDAMEZ PA - [facility] 3 13:10:04 Date Recorded Body height Body mass index (BMI) Body weight Pain severity - 0-10 verbal numeric rating [Score] - Reported Respiratory rate Oxygen saturation Oxygen saturation in Arterial blood by Pulse oximetry Heart rate Body temperature Systolic And Diastolic Provider Name and Address Organization Details Last Updated DateTime 3 152.4 cm 24 kg/m2 86773.8 6 g 0 18 /min 100 % 100 % 63 /min 97.9 [degF] 121/71 mm[Hg] Ruby ARGUELLES - [facility] 3 10:47:13 Social History Question Answer Notes LastModified by [employer] Details LastModified Time Tobacco Smoking Status Current Every Day Smoker JAYY issa PA - [facility] 08/06/2022 13:07:50 Have You Recently Traveled Abroad? No [email or web address] Information not available 08/06/2022 Sex: Unknown Functional Status Question Answer Note LastModified by [employer] Details LastModified Time Do you use any illicit or recreational drugs? No [email or web address] Information not available 08/06/2022 What is your level of alcohol consumption? Occasional [email or web address] Information not available 08/06/2022 Mental Status None recorded. Family History Relationship Description Onset Age of this Age Resolved Age Notes LastModified by Organization Details LastModified Time Father No current problems or disability [email or web address] Not available 08/06 13:06:43 Mother No current problems or disability [email or web address] Not available 08/06 13:06:43 Medical History No medical history recorded. Gynecological HistoryNo gynecological history recorded. Obstetrics History GPAL:G 0 P 0 0 0 0 Immunizations Vaccine Type Date Status Note Provider Nam e and Address Organization Details Recorded Time COVID-19, mRNA, LNP-S, PF, 100 mcg/0.5mL dose or 50 mcg/0.25mL dose 06/12/2021 completed [facility] 10/08/2022 10:45:03 COVID-19, mRNA, LNP-S, PF, 100 mcg/0.5mL dose or 50 mcg/0.25mL dose 06/13/2020 completed Ruby issa PA - [facility] [...] Diagnosis SNOMED-CT Code Diagnosis ICD10 Code Diagnosis IMO Codes Diagnosis Note [id number] [facility] [address] [address] [place] [address] 04/12/2019 10:14:12 04/12/2019 11:24:32 [id number] [facility] [address] [address] [place] [address] 04/14/2019 09:32:35 04/14/2019 10:11:27 [id number] [facility] [address] [place] [address] 12/07/2018 10:55:27 12/07/2018 13:04:44 [id number] [facility] [address] [address] [place] [address] 03/28/2019 10:29:58 03/28/2019 11:33:50 [id number] [facility] [address] [address] [place] [address] 12/31/2017 16:03:58 12/31/2017 16:53:01 [id number] [facility] [address] [address] [facility] [place] [address] 04/19/2022 11:11:08 04/19/2022 12:33:22 [id number] Kobe Trinidad NP [address] [address] [place] [address] 08/06/2022 09:24:11 08/06/2022 13:28:11 Acute low back pain [id number] M54.50 [id number] Quentin Aaron MD [address] [address] [place] [address] 10/08/2022 09:34:41 10/08/2022 11:26:51 Upper respiratory infection 87267514 J06.9 Please follow up with PCP or [...] Hill Member ID Guarantor Name 10/08/2022 1 [facility] [id number] 1 Ilan Ruth [id number] Ilan Ruth Notes Date Note Type Note Provider Name and Address Organization Details Recorded Time 3 text/html Lower BackReported by PatientHPIFor associated symptoms, patient reportspopping/clickingbu t reportsno weakness,no numbness,no swelling,no redness,no warmth,no ecchymosis,no catching/locking,no buckling,no grinding,no instability,no radiation down leg,no drainage,no fever,no chills,no weight loss, andno change in bowel/bladder habits. For location, patient reportsleftandposterior. For quality, patient reportsaching,burning, andconstant. For severity, patient reportsmoderate. For duration, patient reports2 days. For timing, patient reportsacute,morning,dayt sebastian, andnighttime. For context, patient reportscannot identify,lifting, andhistory of similar symptoms. For alleviating factors, patient reportsrestandnsaids. For aggravating factors, patient reportswalking,lifting,ca rrying,bending/squatting, pushing/pulling, andgoing from sit to stand. For previous surgery, patient reportsnone. For prior imaging, patient reportsnone. For previous injections, patient reportsnone. For previous pt, patient reportsnone. For work related, patient reportsno. For working, patient reportsno. Kobe Trinidad NP [address] [place], [address], [place] - [facility] 08/06/2022 13:27:04 3 text/html COVID-19 SymptomsReported by Patient CoughReported by PatientHPIFor quality, patient reportsdrybut reportsintermittent. For associated symptoms, patient reportspost nasal dripbut reportsno fever,no chills,no chest pain,no heartburn,no nausea,no vomiting,no edema,no agitation, andno wheezing. For duration, patient reports4 days. For timing, patient reportsgradual. Quentin Aaron MD [address] [place], [address], [place] - [facility] 10/08/2022 11:28:22 OBGyn Episode No OBEpisode recorded.
== END 2025-03-22 10:15 | disposition home or self-care (01) ==
LOC: HO.RHES 09:21
PROVIDERS: Visit Provider Student in an Organized Health Care Education/Training Program
DX: M05.79 Rheumatoid arthritis with rheumatoid factor of multiple sites without organ or systems involvement (principal); M1A.3710 Chronic gout due to renal impairment, right ankle and foot, without tophus (tophi); Z13.820 Encounter for screening for osteoporosis; Z51.81 Encounter for therapeutic drug level monitoring; Z79.620 Long term (current) use of immunosuppressive biologic
CPT/HCPCS: 99215; G2211

== ENCOUNTER 2025-03-22 09:21 | Outpatient (REF) | payer MEDICARE, OTHER, SELFPAY ==
[2025-03-22 13:18] LABS: MANUAL DIFF FLAG NO
[2025-03-22 13:27] LABS: Hematocrit 36.3 % (37.0-47.0); Hemoglobin 11.9 g/dl (12.0-16.0); Imm Gran Abs Auto 0.02 X10*3/uL (0.00-0.03); Imm Gran Pct Auto 0.2 % (0.0-0.4); Lymphocytes Absolute Auto 2.2 X10*3/uL (1.2-4.9); Mean Corpuscular HGB Conc 32.8 g/dl (31.0-35.0); Mean Corpuscular Hemoglobin 31.6 pg (27.0-33.0); Mean Corpuscular Volume 96.3 fL (80.0-98.0); NRBC Abs Auto 0.000 X10*3/uL (0.0-0.012); NRBC Pct Auto 0.0 /100WBC (0.0-0.2); Platelet Count 370 X10*3/uL (160-400); Red Blood Count 3.77 X10*6/uL (4.20-5.50); White Blood Count 8.5 X10*3/uL (4.8-10.8)
[2025-03-22 13:43] LABS: Alanine Aminotransferase 21 U/L (0-31); Albumin Level 4.3 g/dL (3.5-5.0); Alkaline Phosphatase 101 U/L (39-117); Anion Gap 13 (12-20); Aspartate Amino Transferase 28 U/L (5-31); Blood Urea Nitrogen 23 mg/dL (9-16); Calcium 9.0 mg/dL (8.4-10.2); Carbon Dioxide 22 mmol/L (22-29); Chloride 109 mmol/L (96-108); Estimated Glomerular Filt Rate 46; Potassium 5.5 mmol/L (3.3-5.1); Sodium 138 mmol/L (135-145); Total Protein 7.3 g/dL (6.5-8.0); Uric Acid 4.3 mg/dL (2.4-5.7)
[2025-03-23 04:47] LABS: HBS Num1 27.07 mIU/mL (0-7.99); HBc Num1 0.08 S/CO (0.00-0.79); HBsAGNum1 0.35 S/CO (0.00-0.99); Hepatitis B Surface Antigen Negative (Negative); ~HepC Num1 0.11 S/CO (0.00-0.79); ~Hepatitis B Surface Antibody REACTIVE (Nonreactive); ~Hepatitis C Antibody Nonreactive (Nonreactive)
[2025-03-25 02:29] LABS: TS Negative Control Passed; TS Panel A 0; TS Panel B 3; TS Positive Control Passed; TSpotTB Negative (Negative)
== END 2025-03-22 09:22 | disposition home or self-care (01) ==
LOC: HO.HKASLDS 09:21
PROVIDERS: Visit Provider Student in an Organized Health Care Education/Training Program
DX: Z51.81 Encounter for therapeutic drug level monitoring (principal); M05.9 Rheumatoid arthritis with rheumatoid factor, unspecified; M1A.30X0 Chronic gout due to renal impairment, unspecified site, without tophus (tophi); M81.0 Age-related osteoporosis without current pathological fracture; E55.9 Vitamin D deficiency, unspecified; Z11.1 Encounter for screening for respiratory tuberculosis; Z79.620 Long term (current) use of immunosuppressive biologic; Z79.899 Other long term (current) drug therapy
CPT/HCPCS: 36415; 80053; 82306; 84550; 85025; 85652; 86140; 86481; 86704; 86706; 86803; 87340; 99212